=== PATIENT | female | born 1980 | race Caucasian/White ===

== ENCOUNTER 2016-06-18 04:24 | Emergency (ER) | payer OTHER ==
[~2016-06-18] VITALS: Ht 182.8 cm; Wt 63.5 kg
[~2016-06-18 04:24] MED LIST: ALBUTEROL0.09 MG/A2 INH; ANAPROX DS550 MG PO; AUGMENTIN 875875 MG PO; BACTRIM DS 8001 TA1 PO; CEFADROXIL500 M1 PO; DIFLUCAN100 MG PO; FERROUS SULFAT325 M1 PO; FLEXERIL10 MG PO; FLONASE 0.05% 121 EA NAS; HYDROCODONE BIT1 T11 PO; IBU800 M1 PO; K-DUR 2020 MEQ PO; KEFLEX500 MG PO; LOTRISONE 0.05%45 GM PO; MACROBID100 M1 PO; MOTRIN800 MG PO; NEXIUM40 MG PO; NKHM; PENICILLIN VK500 MG PO; PHENERGAN W/DM120 ML PO; PHENERGAN25 M1 PO; PREDNICOT10 MG PO; PREDNISONE20 MG PO; PRENATAL1 TA1 PO; PRENATAL1 TA2 PO; PRENATAL1 TA7 PO; PRENTAL 1 PLUS1 TAB PO; PROAIR HFA0.09 MG/AC INH; PROTONIX40 MG PO; PYRIDIUM200 MG PO; ROBAXIN750 MG PO; TRAMADOL HCL50 MG PO; TRIMOX500 MG PO; ULTRAM50 MG PO; VICODIN 5/500 505 MG PO; ZITHROMAX Z PA250 MG PO; ZOFRAN ODT4 MG SL; ZOFRAN4 MG PO
[2016-06-18 05:12] LABS: BILIRUBIN NEGATIVE (NEGATIVE); BLOOD TRACE-INTACT (NEGATIVE); CLARITY CLEAR (CLEAR); COLOR YELLOW (YELLOW); GLUCOSE NEGATIVE (NEGATIVE); KETONE NEGATIVE (NEGATIVE); LEUKO ESTERASE NEGATIVE (NEGATIVE); NITRITE NEGATIVE (NEGATIVE); PH 6.5 (5.0-9.0); PROTEIN NEGATIVE (NEGATIVE); SPECIFIC GRAVITY <= 1.005 (1.005-1.030); UROBILINOGEN 0.2 E.U./dl (0.2-1.0)
[2016-06-18 05:13] LABS: BASO # 0.1 10*3/uL (0.0-0.1); BASO % 0.7 % (0.0-1.0); EOS # 0.1 10*3/uL (0.0-0.4); EOS % 1.1 % (1.0-4.0); HEMATOCRIT 38.5 % (37.0-47.0); HEMOGLOBIN 13.1 g/dl (12.0-16.0); LYMPH # 3.1 10*3/uL (1.3-4.4); LYMPH % 29.8 % (27.0-41.0); MEAN CELL VOLUME 95.1 fl (81.0-99.0); MEAN CORPUSCULAR HGB 32.3 pg (27.0-31.0); MEAN PLATELET VOLUME 12.1 fl (9.6-12.3); MONO # 0.6 10*3/uL (0.1-1.0); NEUT # 6.5 10*3/uL (2.3-7.9); NEUT % 62.2 % (47.0-73.0); PLATELET COUNT AUTOMATED 142 10*3/uL (130-400); RED BLOOD COUNT 4.05 10*6/uL (4.10-5.10); RED CELL DISTRI WIDTH 13.2 % (0-14.5); WHITE BLOOD COUNT 10.5 10*3/uL (4.8-10.8)
[2016-06-18 05:22] LABS: URINE REFLEX COMMENT NO (NO)
[2016-06-18 05:29] LABS: ALBUMIN 3.7 gm/dl (3.1-4.5); ALKALINE PHOSPHATASE 67 U/L (45-117); BILIRUBIN, TOTAL 0.2 mg/dl (0.2-1.0); BUN 11 mg/dl (7-24); CARBON DIOXIDE 30 mmol/L (21-32); CHLORIDE 105 mmol/L (98-107); EST GLOM FILT AFRICAN AMERICAN > 60 ml/min; GLUCOSE 83 mg/dL (65-99); POTASSIUM 3.9 mmol/L (3.5-5.1); SGOT/AST 11 IU/L (3-35); SGPT/ALT 15 U/L (12-78); SODIUM 141 mmol/L (136-145); TOTAL PROTEIN 6.9 gm/dL (6.4-8.2)
== END 2016-06-18 09:56 | disposition home or self-care (01) ==
LOC: ED 04:24
PROVIDERS: Emergency Medicine Emergency Medical Services
DX: R10.30 Lower abdominal pain, unspecified (principal); F17.200 Nicotine dependence, unspecified, uncomplicated; Z88.0 Allergy status to penicillin

== ENCOUNTER 2016-06-27 09:21 | Emergency (ER) | payer OTHER ==
[~2016-06-27] VITALS: Ht 182.8 cm; Wt 74.8 kg
[2016-06-27 09:53] LABS: BASO % 0.3 % (0.0-1.0); EOS # 0.2 10*3/uL (0.0-0.4); EOS % 1.8 % (1.0-4.0); HEMATOCRIT 38.6 % (37.0-47.0); HEMOGLOBIN 12.7 g/dl (12.0-16.0); LYMPH # 1.4 10*3/uL (1.3-4.4); LYMPH % 13.8 % (27.0-41.0); MEAN CELL VOLUME 96.7 fl (81.0-99.0); MEAN CORPUSCULAR HGB 31.8 pg (27.0-31.0); MEAN CORPUSCULAR HGB CONC 32.9 g/dl (33.0-37.0); MEAN PLATELET VOLUME 12.6 fl (9.6-12.3); MONO # 0.4 10*3/uL (0.1-1.0); MONO % 4.2 % (3.0-9.0); NEUT # 7.8 10*3/uL (2.3-7.9); NEUT % 79.6 % (47.0-73.0); PLATELET COUNT AUTOMATED 105 10*3/uL (130-400); RED BLOOD COUNT 3.99 10*6/uL (4.10-5.10); RED CELL DISTRI WIDTH 13.3 % (0-14.5); WHITE BLOOD COUNT 9.8 10*3/uL (4.8-10.8)
[2016-06-27 10:08] LABS: ALBUMIN 3.4 gm/dl (3.1-4.5); ALKALINE PHOSPHATASE 68 U/L (45-117); BILIRUBIN, TOTAL 0.3 mg/dl (0.2-1.0); BUN 17 mg/dl (7-24); CARBON DIOXIDE 25 mmol/L (21-32); CHLORIDE 112 mmol/L (98-107); EST GLOM FILT AFRICAN AMERICAN > 60 ml/min; GLUCOSE 84 mg/dL (65-99); POTASSIUM 3.6 mmol/L (3.5-5.1); SGOT/AST 14 IU/L (3-35); SGPT/ALT 16 U/L (12-78); SODIUM 143 mmol/L (136-145); TOTAL PROTEIN 6.6 gm/dL (6.4-8.2)
[2016-06-27 10:20] LABS: BILIRUBIN 1+ (NEGATIVE); BLOOD 3+ (NEGATIVE); CLARITY TURBID (CLEAR); COLOR RED (YELLOW); GLUCOSE NEGATIVE (NEGATIVE); KETONE NEGATIVE (NEGATIVE); NITRITE POSITIVE (NEGATIVE); PROTEIN 3+ (NEGATIVE); SPECIFIC GRAVITY >= 1.030 (1.005-1.030)
[2016-06-27 10:27] LABS: URINE AMPHETAMINES < 1000 (1000ng/ml); URINE BARBITURATES < 200 (200ng/ml); URINE COCAINE < 300 (300ng/ml)
[2016-06-27 10:31] LABS: LEUKO ESTERASE NEGATIVE (NEGATIVE)
[2016-06-27 10:32] LABS: RBC TNTC rbc/hpf (0-2); URINE REFLEX COMMENT YES (NO)
[2016-06-27] MEDS ORDERED: MACROBID100 M1 PO (10:47)
[2016-06-27] MEDS ORDERED: PYRIDIUM200 M1 PO (10:47)
== END 2016-06-27 11:10 | disposition home or self-care (01) ==
LOC: ED 09:21
PROVIDERS: Nurse Practitioner Family
DX: N39.0 Urinary tract infection, site not specified (principal); N93.8 Other specified abnormal uterine and vaginal bleeding; R31.9 Hematuria, unspecified; R03.0 Elevated blood-pressure reading, without diagnosis of hypertension; R05 Cough; R09.81 Nasal congestion; J02.9 Acute pharyngitis, unspecified; R19.7 Diarrhea, unspecified; F17.200 Nicotine dependence, unspecified, uncomplicated; Z88.0 Allergy status to penicillin

== ENCOUNTER 2016-08-31 11:37 | Emergency (ER) | payer OTHER ==
[~2016-08-31] VITALS: Wt 77.1 kg
[~2016-08-31 11:37] MED LIST changes: +PYRIDIUM200 M1 PO
[2016-08-31] MEDS ORDERED: NAPROSYN500 MG PO (12:54)
[2016-08-31] MEDS ORDERED: CLINDAMYCIN150 MG PO (12:54)
== END 2016-08-31 13:34 | disposition home or self-care (01) ==
LOC: ED 11:37
DX: S61.012A Laceration without foreign body of left thumb without damage to nail, initial encounter (principal); S61.412A Laceration without foreign body of left hand, initial encounter; R03.0 Elevated blood-pressure reading, without diagnosis of hypertension; F17.200 Nicotine dependence, unspecified, uncomplicated; Z88.0 Allergy status to penicillin; Z29.12 Encounter for prophylactic antivenin; W22.8XXA Striking against or struck by other objects, initial encounter; Y93.9 Activity, unspecified; Y92.9 Unspecified place or not applicable; Y99.9 Unspecified external cause status

== ENCOUNTER 2016-11-02 19:26 | Emergency (ER) | payer OTHER ==
[~2016-11-02] VITALS: Ht 182.8 cm; Wt 74.8 kg
[~2016-11-02 19:26] MED LIST changes: +CLINDAMYCIN150 MG PO; +NAPROSYN500 MG PO
== END 2016-11-02 22:03 | disposition home or self-care (01) ==
LOC: ED 19:26
DX: S30.0XXA Contusion of lower back and pelvis, initial encounter (principal); F17.200 Nicotine dependence, unspecified, uncomplicated; Z88.0 Allergy status to penicillin; W20.8XXA Other cause of strike by thrown, projected or falling object, initial encounter; Y93.89 Activity, other specified; Y92.89 Other specified places as the place of occurrence of the external cause; Y99.8 Other external cause status

== ENCOUNTER 2016-11-25 10:47 | Inpatient (IN) | payer OTHER ==
[~2016-11-25] VITALS: Ht 182.8 cm; Wt 60.6 kg
--- NOTE | ~2016-11-25 | CON ---
[place], [place] REPORT OF CONSULTATION [id number] UNIT #: [id number] ROOM: 405 DOCTOR: CASEY ANTONIO MD BIRTHDATE: [birth year] DOS: 11/26/2016 HISTORY OF PRESENT ILLNESS: The patient is a pleasant 36-year-old woman who came to the Emergency Room because of intractable nausea, vomiting, which had been getting worse. She also started having some diffuse abdominal and some chest pain. She has not been able to eat too much. She was subsequently admitted for now. She had been taking some opioids prescribed by her dentist. On her routine CBC examination, found to have progressive thrombocytopenia and consulted for further evaluation and management. PAST MEDICAL HISTORY: Abdominal pain, acute bronchitis, dental decay, dysfunctional uterine bleeding, laceration of earlobe, and lumbar contusion. PAST SURGICAL HISTORY: No significant past surgical history. SOCIAL HISTORY: Uses marijuana, is a smoker and denies alcohol consumption. FAMILY HISTORY: Father and mother noncontributory. ALLERGIES: No known allergies. MEDICATIONS: Amoxicillin, hydrocodone/acetaminophen and ibuprofen. REVIEW OF SYSTEMS: CONSTITUTIONAL: No chills. No fatigue. No fever. No loss of appetite. No night sweats. No weakness. No weight loss. HEENT: No trouble swallowing. No loss of smell. No loss of hearing. No double vision. No pain. No discharge. ENT AND RESPIRATORY: No wheeze. No sore throat. No change in voice. No hearing loss. No nose bleed. No cough. No trouble breathing through nose. No shortness of breath. No coughing up blood. No epistaxis. CARDIOVASCULAR: No chest pain. No dizziness. No irregular heartbeat. No leg edema. No pain in legs while walking. No palpitations. No shortness of breath. DERMATOLOGIC: No acne. No hives. No laceration. No mole. No rash. ENDOCRINE: No cold intolerance. No diabetes. No fatigue. No hot flashes. No polydipsia. No polyuria. No urinating frequently. No weight loss. HEMATOLOGIC AND LYMPH: No fatigue. No easy bruising. GASTROENTEROLOGIC: No change in bowel habits. No indigestion. No frequent bloating. No vomiting blood. No abdominal cramping. No heartburn. No abdominal pain. No dysphagia. No blood in stool. She has been having some nausea, vomiting, though denies diarrhea and constipation. FEMALE REPRODUCTIVE: No vaginal itching. No difficulty urinating. No heavy periods. No dyspareunia. No sexually active. No dysmenorrhea. No pelvic pain. No breast pain. No nipple discharge. No abnormal vaginal discharge. No hot flashes. MUSCULOSKELETAL: No back pain. No muscle pain or weakness. No neck pain. No tingling/numbness. No swelling/bruising. No osteoporosis treatment. OPHTHALMOLOGIC: No double vision. No diminished vision. No loss of vision. UROLOGIC: No dysuria. No frequent nighttime urination. No irregular periods. [place], [place] REPORT OF CONSULTATION NAME: CRISTIANO MAGAÑA UNIT #: [id number] ROOM: [facility] DOCTOR: CASEY ANTONIO MD BIRTHDATE: [birth year] No pain with urination. No difficulty urinating. No blood in urine. No frequent urination. No urinary incontinence. NEUROLOGIC: No loss of sensation in specific body area. No vertigo. No burning pain in feet. No trouble with balance. No trouble with coordination. No loss of consciousness. No loss of feeling/power. No confusion. No headache. No tingling/numbness. PSYCHOLOGIC: No tinnitus. No headaches. No shortness of breath. No weight decrease. No nausea. No vomiting. No abdominal discomfort. No constipation. No diarrhea. No depression. No anxiety. PHYSICAL EXAMINATION: GENERAL: Pleasant woman in no apparent distress. VITAL SIGNS: Stable, afebrile. HEENT: Oral mucosa appears intact. The external ears are normal in appearance. Nares are patent without lesions, exudates, erythema, or inflammation. Tongue is symmetrical. Uvula is midline. NECK AND THYROID: Neck supple without palpable masses. Trachea is midline. No thyromegaly. No carotid bruit or JVD. BREASTS: Normal. Nipples unremarkable. No drainage. No lumps felt on either side. HEART: Normal S1, S2, without significant murmur, rub, or gallop. LUNGS: Clear to auscultation and percussion with good air entry bilaterally. The patient is breathing easily without the use of accessory muscles. Diaphragmatic excursions are intact. ABDOMEN: No costovertebral angle tenderness. Soft. No organomegaly or masses. Nontender. No hernias present. Liver and spleen are not palpable. LYMPHATIC: No adenopathy noted in the cervical, supraclavicular, axillary, or inguinal regions. NEUROLOGIC: Nonfocal. Oriented to person, place, and time. MENTAL STATUS: Appropriate for mood and affect. PERIPHERAL PULSES: No varicosities. Femoral and pedal pulses are palpable. EXTREMITIES: Without cyanosis, clubbing, or edema. No gross anomalies. LABORATORY DATA: White count of 6.5, hemoglobin 13.6, hematocrit 40.1, MCV 93.7, platelet count 101,000. Chemistries: Glucose of 96, EGFR more than 60. Sodium 141, potassium 3.5, chloride 109, total protein 7.0. SGOT 14, SGPT 11, alkaline phosphatase 66. ASSESSMENT: 1. Thrombocytopenia etiology probably bone marrow suppression. 2. Intractable nausea and vomiting. 3. Dehydration. 4. Chest pain. 5. Abdominal pain. PLAN: I had detailed discussion with the patient about different causes of thrombocytopenia. We will go ahead and review peripheral smears as well as do workup for thrombocytopenia. We will wait for GI for further evaluation and depending on that do further intervention. I had a detailed discussion with the patient about it, she seemed to understand. Ample time was given to the patient [place], [place] REPORT OF CONSULTATION NAME: CRISTIANO MAGAÑA UNIT #: [id number] ROOM: 405 DOCTOR: CASEY ANTONIO MD BIRTHDATE: [birth year] to ask me questions. We will follow. Thanks for consulting and letting me participate in the care of this interesting patient. CASEY ANTONIO MD CM:CONSTR:REPORT OF CONSULTATION 1205 11/27/16 0531 interface
--- NOTE | ~2016-11-25 | PR ---
[place], [place] PROGRESS NOTE NAME: CRISTIANO MAGAÑA UNIT #: [id number] ROOM: 405 DOCTOR: CASEY ANTONIO MD BIRTHDATE: [birth year] DOS: 11/27/2016 SUBJECTIVE: The patient is doing better. She is awake, alert and responsive. REVIEW OF SYSTEMS HEENT: No trouble swallowing. No double vision. No loss of vision. No pain. ENT AND RESPIRATORY: No wheeze. No change in voice. No cough. No shortness of breath. No coughing up blood. No epistaxis. CARDIOLOGIC: No chest pain. No dizziness. No irregular heartbeat. No leg edema. No palpitations. No shortness of breath. HEMATOLOGIC AND LYMPH: No past transfusion. No fatigue. No loss of appetite. No easy bruising. GASTROENTEROLOGIC: No change in bowel habits. No vomiting blood. No abdominal cramping. No nausea. No vomiting. No diarrhea. No constipation. No blood in stool. FEMALE REPRODUCTIVE: No dyspareunia. No pelvic pain. MUSCULOSKELETAL: No back pain. No muscle pain or weakness. No tingling/numbness. UROLOGIC: No pain with urination. No difficulty urinating. No frequent urination. NEUROLOGIC: No burning pain in feet. No trouble with coordination. No loss of consciousness. No headache. No tingling/numbness. No memory loss. PHYSICAL EXAMINATION: GENERAL: Pleasant woman in no apparent distress. VITAL SIGNS: Blood pressure 120/70, respirations 20, pulse 78, temperature 97.7. HEENT: Normocephalic, atraumatic NECK AND THYROID: Supple. No JVD, thyromegaly, or lymphadenopathy. HEART: Normal S1, S2. Regular rate and rhythm. LUNGS: Clear to auscultation and percussion. ABDOMEN: Soft. Nontender, nondistended. Bowel sounds present. EXTREMITIES: Normal ROM. No clubbing. No edema. LABORATORY DATA: Sodium 142, potassium 3.6, chloride 108, bicarbonate 25, EGFR more than 60. AST 13, ALT 13. White count 7.9, hemoglobin 12.2, hematocrit 36.2, platelet count 207,000. ASSESSMENT: 1. Thrombocytopenia. 2. Intractable nausea, vomiting, which has got better 3. Dehydration. PLAN: Workup has been ordered. The patient will be followed as outpatient and she was advised if any bleeding, bruising, petechiae, etc. to call us. Otherwise, follow as outpatient. [place], [place] PROGRESS NOTE NAME: CRISTIANO MAGAÑA UNIT #: [id number] ROOM: 405 DOCTOR: CASEY ANTONIO MD BIRTHDATE: [birth year] CASEY ANTONIO MD CM:PNTRANS [id number] CASEY ANTONIO MD 11/28/16 0530 interface
--- NOTE | ~2016-11-25 | O ---
[place], [place] OPERATIVE NOTE NAME: CRISTIANO MAGAÑA UNIT #: [id number] ROOM: 405 DOCTOR: ANNE SIMONSLUCILLE BIRTHDATE: [birth year] DOS: GASTRO-ENDOSCOPIC REPORT HISTORY OF PRESENT ILLNESS: A 36-year-old patient who has presented with chief complaint of relentless nausea, vomiting, undergoing investigation. The patient has had a panel of studies done, among which was her HIV screening that was nonreactive, history of acute hepatitis panel was nonreactive. She has been user of recreational medication and she was THC positive, opiates positive. Lactic acid was 0.7. CBC: White blood cells 5.5, H and H 13 and 40. Comprehensive metabolic panel, GFR normal. Labs reviewed. Records reviewed. test negative, reviewed. Troponin was negative. PAST MEDICAL HISTORY: Nonspecific abdominal pain, dental decay. PAST SURGICAL HISTORY: Unremarkable. SOCIAL HISTORY: Smoker of 2 packs of cigarettes, marijuana as well as drinking 6 cups of coffee per day. FAMILY HISTORY: Noncontributory. ALLERGIES: To no known medication. MEDICATIONS: List has been reviewed. The patient has been on ibuprofen 800 t.i.d. as well as [place] for dental pain. PROCEDURE: Today's procedure part of investigation is panendoscopy plus biopsy. PREMEDICATION: Versed and Diprivan. SCOPE: Olympus forward-viewing gastroscope Q10 video. REPORT: After putting the patient in the left lateral position and after application of lubricant to the scope, the scope was introduced. Thereafter, under direct visualization, I advanced through the length of the esophagus without difficulty. Small hiatal hernia was noticed. Gastric pouch was entered. Gastritis seen. Duodenal bulb, second and third parts were free of ulcer or obstruction. The patient extubated, tolerated procedure well. IMPRESSION: Gastritis, hiatal hernia, bile reflux. PLAN AND DISCUSSION: We are going to give her 1 dose of Reglan today to reestablish her motility of upper GI tract and continue the PPI, soft diet as tolerated and clinical reassessment. On the other hand, we have already done sonogram of the gallbladder. Nonspecific mild gallbladder thickening which is not of any concern. There was no acute cholecystitis concern. CT scan of the head has been no intracranial bleed. Supportive management otherwise. [place], [place] OPERATIVE NOTE NAME: CRISTIANO MAGAÑA UNIT #: [id number] ROOM: 405 DOCTOR: ANNE SIMONS,LUCILLE BIRTHDATE: [birth year] LUCILLE RODRÍGUEZ MD CM:OPRECORD:OPERATIVE NOTE [id number] LUCILLE RODRÍGUEZ MD 11/26/16 1634 interface
[2016-11-25 10:54] VITALS: BP 121/76
[2016-11-25 11:14] LABS: BILIRUBIN NEGATIVE (NEGATIVE); BLOOD 1+ (NEGATIVE); CLARITY SL CLOUDY (CLEAR); COLOR YELLOW (YELLOW); GLUCOSE NEGATIVE (NEGATIVE); KETONE NEGATIVE (NEGATIVE); LEUKO ESTERASE TRACE (NEGATIVE); NITRITE NEGATIVE (NEGATIVE); PH 5.5 (5.0-9.0); SPECIFIC GRAVITY 1.025 (1.005-1.030)
[2016-11-25 11:25] LABS: URINE AMPHETAMINES < 1000 (1000ng/ml); URINE BARBITURATES < 200 (200ng/ml); URINE BENZODIAZEPINES < 200 (200ng/ml); URINE CANNABINOIDS (THC) > 50 (50ng/ml); URINE COCAINE < 300 (300ng/ml); URINE METHADONE < 300 (300ng/ml); URINE OPIATES > 300 (300ng/ml)
[2016-11-25 11:26] LABS: URINE PHENCYCLIDINE < 25 (25ng/ml)
[2016-11-25 11:29] LABS: BACTERIA TRACE
[2016-11-25 11:31] LABS: BASO % 0.5 % (0.0-1.0); EOS # 0.3 10*3/uL (0.0-0.4); EOS % 5.4 % (1.0-4.0); HEMATOCRIT 40.1 % (37.0-47.0); HEMOGLOBIN 13.4 g/dl (12.0-16.0); LYMPH # 1.9 10*3/uL (1.3-4.4); LYMPH % 34.1 % (27.0-41.0); MEAN CORPUSCULAR HGB 31.8 pg (27.0-31.0); MEAN CORPUSCULAR HGB CONC 33.4 g/dl (33.0-37.0); MEAN PLATELET VOLUME 13.3 fl (9.6-12.3); MONO # 0.4 10*3/uL (0.1-1.0); MONO % 7.1 % (3.0-9.0); NEUT # 2.9 10*3/uL (2.3-7.9); NEUT % 52.7 % (47.0-73.0); PLATELET COUNT AUTOMATED 72 10*3/uL (130-400); RED BLOOD COUNT 4.22 10*6/uL (4.10-5.10); RED CELL DISTRI WIDTH 14.3 % (0-14.5); WHITE BLOOD COUNT 5.5 10*3/uL (4.8-10.8)
[2016-11-25 11:49] LABS: ALBUMIN 3.3 gm/dl (3.1-4.5); ALKALINE PHOSPHATASE 66 U/L (45-117); BUN 11 mg/dl (7-24); CHLORIDE 109 mmol/L (98-107); CREATININE 0.86 mg/dL (0.55-1.02); LIPASE 163 U/L (73-393); MAGNESIUM 1.8 mg/dL (1.5-2.1); POTASSIUM 3.8 mmol/L (3.5-5.1); SGOT/AST 18 IU/L (3-35); SGPT/ALT 13 U/L (12-78); SODIUM 140 mmol/L (136-145); TOTAL PROTEIN 7.1 gm/dL (6.4-8.2)
[2016-11-25 11:52] LABS: BETA-HCG, QUANT < 1.0 mIU/mL (1-3)
--- NOTE | 2016-11-25 12:14 | NUR ---
PT PULLED IV OUT STATED "I DIDNT GET THE MEDICINE" PT DRY HEAVING WITH NO EMESIS PRODUCED IN ROOM DR CANNON NOTIFIED AND IS GOING TO SEE PATIENT PT GIVEN A EMESIS BAG CALL LIGHT IN REACH
--- NOTE | 2016-11-25 12:23 | NUR ---
NO EMESIS IN BAG OF YET PT IN BED CALL LIGHT IN REACH
[2016-11-25 12:30] VITALS: BP 120/78
--- NOTE | 2016-11-25 12:45 | NUR ---
IV RESTARTED LAC WITHOUT DIFFICULTY NO EMESIS IN BAG OF YET PT RESTING IN BED CALL LIGHT IN REACH
--- NOTE | 2016-11-25 13:37 | NUR ---
PATIENT REFUSING FLU SHOT AT THIS TIME
[2016-11-25] MEDS ORDERED: NORCO 7.5-3251 EACH PO (13:41)
[2016-11-25] MEDS ORDERED: AMOXICILLIN500 M3 PO (13:41)
[2016-11-25] MEDS ORDERED: IBU800 MG PO (13:41)
--- NOTE | 2016-11-25 13:42 | NUR ---
HOME MEDICATIONS VERIFIED WITH [facility]ACISTS AT [facility]
--- NOTE | 2016-11-25 13:43 | NUR ---
DR Stacie CANNON NOTIFIED OF MEDICATION LIST UPDATED
[2016-11-25 16:00] VITALS: BP 135/80
--- NOTE | 2016-11-25 16:21 | NUR ---
DR RODRÍGUEZ CALLED FOR CONSULT. KEEP PATIENT NPO AFTER MIDNIGHT AND SCHEDULE FOR EGD TOMORROW.
[2016-11-25 20:00] VITALS: BP 118/57
[2016-11-26] VITALS: BP 109/51
--- NOTE | 2016-11-26 02:32 | NUR ---
PT RESTING IN BED WITH EYES CLOSED RESPS EASY AND NONLABORED WITH NO S/S OF DSTRESS CALL LIGHT WITH IN REACH
--- NOTE | 2016-11-26 05:30 | NUR ---
PT HAD SMALL AMOUNT OF LIGHT GREEN EMISIS X1 MEDICATED WITH PHENERGRAN IV PRN PER ORDERS
[2016-11-26 06:02] LABS: BASO % 0.2 % (0.0-1.0); HEMATOCRIT 40.1 % (37.0-47.0); HEMOGLOBIN 13.6 g/dl (12.0-16.0); LYMPH # 1.2 10*3/uL (1.3-4.4); LYMPH % 18.6 % (27.0-41.0); MEAN CELL VOLUME 93.7 fl (81.0-99.0); MEAN CORPUSCULAR HGB 31.8 pg (27.0-31.0); MEAN CORPUSCULAR HGB CONC 33.9 g/dl (33.0-37.0); MEAN PLATELET VOLUME 14.3 fl (9.6-12.3); MONO # 0.3 10*3/uL (0.1-1.0); MONO % 4.6 % (3.0-9.0); NEUT % 76.4 % (47.0-73.0); RED BLOOD COUNT 4.28 10*6/uL (4.10-5.10); RED CELL DISTRI WIDTH 14.1 % (0-14.5); WHITE BLOOD COUNT 6.5 10*3/uL (4.8-10.8)
[2016-11-26 06:23] LABS: PLATELET COUNT AUTOMATED 101 10*3/uL (130-400)
[2016-11-26 06:29] LABS: ALBUMIN 3.3 gm/dl (3.1-4.5); BUN 11 mg/dl (7-24); CHLORIDE 109 mmol/L (98-107); MAGNESIUM 2.1 mg/dL (1.5-2.1); POTASSIUM 3.5 mmol/L (3.5-5.1); SODIUM 141 mmol/L (136-145)
[2016-11-26 06:40] LABS: ALKALINE PHOSPHATASE 66 U/L (45-117); CHOLESTEROL 146 mg/dL (<200); CREATININE 0.63 mg/dL (0.55-1.02); HDL CHOLESTEROL 31 mg/dl (40-60); LDL CHOLESTEROL 102 mg/dL (9-159); PHOSPHOROUS 3.5 mg/dL (2.5-4.9); SGOT/AST 14 IU/L (3-35); SGPT/ALT 11 U/L (12-78); THYROID STIM HORMONE (HS) 0.772 uIU/ml (0.358-4.75); TRIGLYCERIDES 65 mg/dl (<150); VLDL CHOLESTEROL 13 mg/dL (6-40)
[2016-11-26 06:41] LABS: ACT PARTIAL THROMBO TIME 23.2 SECONDS (20.8-31.5); INTERNATIONAL NORM RATIO 1.1 (2.0-3.5)
[2016-11-26 07:06] LABS: HEPATITIS B SURFACE AG Negative (Negative); HEPATITIS C VIRUS ANTIBODY 0.1 s/co (0.0-0.9); HIV 1+2 AB + HIV1 P24 AG Non Reactive (Non Reactive)
[2016-11-26 07:45] LABS: VITAMIN D, 25-HYDROXY 28.7 ng/mL (30-100)
[2016-11-26 08:00] VITALS: BP 138/76
--- NOTE | 2016-11-26 09:00 | NUR ---
Disc Jockey in to talk to patient. Patient states lives at home with family. There are few steps in the home. Physician: judy Pharmacy: [facility] Home health services: none Patient's level of ADLs: INDEPENDENT Patient has working utilities: all working DME: none Follow-up physician's appointment after d/c: patient prefers to make own appointment Does patient want to access PORTAL?: no Discharge plan discussed with patient, patient will be going home when able and denies any home needs, she is independent in adls and ambulaiton. RONALD PEÑA
--- NOTE | 2016-11-26 11:30 | NUR ---
DR. STRATTON CALLED FOR CONSULT.
--- NOTE | 2016-11-26 11:51 | NUR ---
PT VOMITTING UP GREEN LIQUID EMISIS. DR. SINHA IN ROOM, MEDICATED WITH ZOFRAN PER PRN ORDER. WILL MONITOR.
--- NOTE | 2016-11-26 12:00 | NUR ---
ZOFRAN EFFECTIVE PER PT.
[2016-11-26 13:22] LABS: HEMATOCRIT 38.4 % (37.0-47.0); HEMOGLOBIN 13.1 g/dl (12.0-16.0); MEAN CELL VOLUME 94.1 fl (81.0-99.0); MEAN CORPUSCULAR HGB 32.1 pg (27.0-31.0); MEAN CORPUSCULAR HGB CONC 34.1 g/dl (33.0-37.0); MEAN PLATELET VOLUME 14.2 fl (9.6-12.3); PLATELET COUNT AUTOMATED 110 10*3/uL (130-400); RED BLOOD COUNT 4.08 10*6/uL (4.10-5.10); RED CELL DISTRI WIDTH 14.1 % (0-14.5); WHITE BLOOD COUNT 7.4 10*3/uL (4.8-10.8)
[2016-11-26 13:24] LABS: IMMATURE PLATELET 21.2 % (0.0-7.2)
[2016-11-26 13:42] LABS: TOTAL CELLS COUNTED 100 #CELLS
[2016-11-26 13:44] LABS: PLATELET SUFFICIENCY LOW (NORMAL)
[2016-11-26 15:48] VITALS: BP 121/62
[2016-11-26 16:03] VITALS: BP 109/62
[2016-11-26 16:18] VITALS: BP 104/60
[2016-11-26 16:33] VITALS: BP 113/57
--- NOTE | 2016-11-26 18:30 | NUR ---
IV started right antecubital with #22 angiocath after 2 attempts. The IV site was prepped with Chloraprep. Heparin lock attached. Sterile dressing applied. Patient tolerated precedure well. Procedure performed according to [facility] policy & procedure. ALBINO TAY
--- NOTE | 2016-11-26 19:03 | NUR ---
PATIENT IS RESTING COMFORTABLY IN BED. PATIENT LINENS AND GOWN WERE CHANGED FROM INCONTINENCE. CALL LIGHT IS WITHIN REACH.
--- NOTE | 2016-11-26 22:20 | NUR ---
PATIENT MEDICATED WITH ZOFRAN PER PRN ORDER FOR C/O NAUSEA. SEE EMAR. REINFORCED USE OF CALL LIGHT.
[2016-11-27] VITALS: BP 127/74
--- NOTE | 2016-11-27 | NUR ---
ZOFRAN EFFECTIVE FOR C/O NAUSEA.
[2016-11-27 06:29] LABS: BASO % 0.1 % (0.0-1.0); HEMATOCRIT 36.2 % (37.0-47.0); HEMOGLOBIN 12.2 g/dl (12.0-16.0); LYMPH # 1.6 10*3/uL (1.3-4.4); LYMPH % 20.8 % (27.0-41.0); MEAN CELL VOLUME 93.1 fl (81.0-99.0); MEAN CORPUSCULAR HGB 31.4 pg (27.0-31.0); MEAN CORPUSCULAR HGB CONC 33.7 g/dl (33.0-37.0); MEAN PLATELET VOLUME 14.2 fl (9.6-12.3); MONO # 0.3 10*3/uL (0.1-1.0); MONO % 4.3 % (3.0-9.0); NEUT # 5.9 10*3/uL (2.3-7.9); NEUT % 74.5 % (47.0-73.0); PLATELET COUNT AUTOMATED 107 10*3/uL (130-400); RED BLOOD COUNT 3.89 10*6/uL (4.10-5.10); WHITE BLOOD COUNT 7.9 10*3/uL (4.8-10.8)
[2016-11-27 06:53] LABS: ALBUMIN 3.2 gm/dl (3.1-4.5); ALKALINE PHOSPHATASE 61 U/L (45-117); BUN 10 mg/dl (7-24); CHLORIDE 108 mmol/L (98-107); CREATININE 0.69 mg/dL (0.55-1.02); PHOSPHOROUS 2.5 mg/dL (2.5-4.9); POTASSIUM 3.6 mmol/L (3.5-5.1); SGOT/AST 13 IU/L (3-35); SGPT/ALT 13 U/L (12-78); SODIUM 142 mmol/L (136-145); TOTAL PROTEIN 6.5 gm/dL (6.4-8.2)
[2016-11-27 08:12] LABS: RHEUMATOID ARTHRITIS FACTOR 67.9 IU/mL (0.0-13.9)
[2016-11-27 09:00] VITALS: BP 134/82
--- NOTE | 2016-11-27 11:13 | NUR ---
DR. VARELA CALLED FOR CONSULT FOR BILIARY DYSKINESIA.
[2016-11-27 12:00] VITALS: BP 128/70
[2016-11-27 12:08] LABS: ANTI-DSDNA ANTIBODIES 096339 1 IU/mL (0-9)
--- NOTE | 2016-11-27 14:16 | NUR ---
PATIENT STATED SHE WANTS AMA PAPERS BECAUSE SHE FEELS BETTER AND JUST WANTS TO GO HOME. DR. CANNON AND TEACHER [employer] RODNEY NOTIFIED. IV REMOVED AND AMA FORM SIGNED.
[2016-11-27 15:09] LABS: MYCOPLASMA PNEUMONIAE IGG 475 U/mL (0-99); MYCOPLASMA PNEUMONIAE IGG 495 U/mL (0-99); MYCOPLASMA PNEUMONIAE IGM <770 U/mL (0-769)
[2016-11-27 17:07] LABS: HLA CLASS 1 ANTIBODY Negative (Negative); IIb/IIIa ANTIBODY Positive (Negative); Ia/IIa ANTIBODY Positive (Negative); Ib/IX ANTIBODY Negative (Negative)
[2016-11-27 22:05] LABS: CCP ANTIBODIES IGG/IGA 3 units (0-19)
[2016-11-28 17:06] LABS: PLT ASSOCIATED ANTI-la/lla Positive (Negative); PLT ASSOCIATED ANTI-llb/llla Positive (Negative)
[2016-11-28 22:07] LABS: PARAINFLUENZA 1 CF Negative (Neg:<1:8); PARAINFLUENZA 2 CF Negative (Neg:<1:8); PARAINFLUENZA 3 CF Negative (Neg:<1:8)
[2016-11-29 00:04] LABS: ADENOVIRUS Negative (Negative); INFLUENZA A Negative (Negative); INFLUENZA B Negative (Negative); METAPNEUMOVIRUS Negative (Negative); PARAINFLUENZA 1 Positive (Negative); PARAINFLUENZA 2 Negative (Negative); PARAINFLUENZA 3 Negative (Negative); RHINOVIRUS Negative (Negative); RSV A Negative (Negative); RSV B Negative (Negative)
== END 2016-11-27 14:16 | disposition left against medical advice (07) | DRG 178 ==
LOC: ED 10:47 → 4E 12:37 → EDHOLD 12:37 → 4E 13:03
PROVIDERS: Emergency Medicine; Internal Medicine; Internal Medicine Hematology & Oncology; ADMIT Internal Medicine
PROC: 0DB68ZX Excision of Stomach, Via Natural or Artificial Opening Endoscopic, Diagnostic (ICD-10-PCS; principal; 2016-11-26)
DX: J69.0 Pneumonitis due to inhalation of food and vomit (principal); E44.0 Moderate protein-calorie malnutrition; E87.8 Other disorders of electrolyte and fluid balance, not elsewhere classified; D69.6 Thrombocytopenia, unspecified; E86.0 Dehydration; K44.9 Diaphragmatic hernia without obstruction or gangrene; K29.70 Gastritis, unspecified, without bleeding; K21.9 Gastro-esophageal reflux disease without esophagitis; K22.8 Other specified diseases of esophagus; K82.8 Other specified diseases of gallbladder; R82.71 Bacteriuria; R07.89 Other chest pain; F12.10 Cannabis abuse, uncomplicated; F17.210 Nicotine dependence, cigarettes, uncomplicated; E55.9 Vitamin D deficiency, unspecified; D72.810 Lymphocytopenia; G43.A0 Cyclical vomiting, in migraine, not intractable; Z71.6 Tobacco abuse counseling

== ENCOUNTER 2017-01-05 09:29 | Emergency (ER) | payer OTHER ==
[~2017-01-05] VITALS: Wt 59.0 kg
[~2017-01-05 09:29] MED LIST changes: +AMOXICILLIN500 M3 PO; +IBU800 MG PO; +NORCO 7.5-3251 EACH PO
[2017-01-05 10:42] LABS: BASO # 0.1 10*3/uL (0.0-0.1); BASO % 0.6 % (0.0-1.0); EOS # 0.1 10*3/uL (0.0-0.4); HEMATOCRIT 39.6 % (37.0-47.0); HEMOGLOBIN 13.7 g/dl (12.0-16.0); LYMPH % 36.9 % (27.0-41.0); MEAN CORPUSCULAR HGB 31.5 pg (27.0-31.0); MEAN CORPUSCULAR HGB CONC 34.6 g/dl (33.0-37.0); MEAN PLATELET VOLUME 12.9 fl (9.6-12.3); MONO # 0.9 10*3/uL (0.1-1.0); MONO % 8.4 % (3.0-9.0); NEUT # 5.7 10*3/uL (2.3-7.9); NEUT % 52.9 % (47.0-73.0); PLATELET COUNT AUTOMATED 144 10*3/uL (130-400); RED BLOOD COUNT 4.35 10*6/uL (4.10-5.10); RED CELL DISTRI WIDTH 13.9 % (0-14.5); WHITE BLOOD COUNT 10.8 10*3/uL (4.8-10.8)
[2017-01-05 10:52] LABS: BILIRUBIN 1+ (NEGATIVE); BLOOD NEGATIVE (NEGATIVE); CLARITY CLOUDY (CLEAR); COLOR YELLOW (YELLOW); GLUCOSE NEGATIVE (NEGATIVE); KETONE 1+ (NEGATIVE); LEUKO ESTERASE TRACE (NEGATIVE); NITRITE NEGATIVE (NEGATIVE); PH 6.5 (5.0-9.0); SPECIFIC GRAVITY 1.015 (1.005-1.030)
[2017-01-05 10:58] LABS: ALBUMIN 3.8 gm/dl (3.1-4.5); BUN 12 mg/dl (7-24); CHLORIDE 99 mmol/L (98-107); CREATININE 1.09 mg/dL (0.55-1.02); LIPASE 360 U/L (73-393); POTASSIUM 3.5 mmol/L (3.5-5.1); SGOT/AST 11 IU/L (3-35); SGPT/ALT 13 U/L (12-78); SODIUM 135 mmol/L (136-145); TOTAL PROTEIN 7.2 gm/dL (6.4-8.2)
[2017-01-05 11:02] LABS: ALKALINE PHOSPHATASE 60 U/L (45-117)
[2017-01-05 11:10] LABS: BACTERIA TRACE; EPITHELIAL CELLS 0-2; MUCOUS 3+; RBC 0-2 rbc/hpf (0-2)
== END 2017-01-05 12:40 | disposition home or self-care (01) ==
LOC: ED 09:29
PROVIDERS: Nurse Practitioner Family
DX: R11.2 Nausea with vomiting, unspecified (principal); F17.200 Nicotine dependence, unspecified, uncomplicated; Z88.1 Allergy status to other antibiotic agents; Z88.8 Allergy status to other drugs, medicaments and biological substances

== ENCOUNTER 2017-09-13 19:03 | Emergency (ER) | payer OTHER ==
[~2017-09-13] VITALS: Ht 182.8 cm; Wt 68.9 kg
[2017-09-13 19:29] LABS: BASO # 0.1 10*3/uL (0.0-0.1); BASO % 0.7 % (0.0-1.0); EOS # 0.2 10*3/uL (0.0-0.4); EOS % 2.2 % (1.0-4.0); HEMATOCRIT 39.3 % (37.0-47.0); HEMOGLOBIN 13.1 g/dl (12.0-16.0); LYMPH # 2.4 10*3/uL (1.3-4.4); LYMPH % 36.4 % (27.0-41.0); MEAN CELL VOLUME 95.2 fl (81.0-99.0); MEAN CORPUSCULAR HGB 31.7 pg (27.0-31.0); MEAN CORPUSCULAR HGB CONC 33.3 g/dl (33.0-37.0); MEAN PLATELET VOLUME 12.4 fl (9.6-12.3); MONO # 0.6 10*3/uL (0.1-1.0); MONO % 8.2 % (3.0-9.0); NEUT # 3.5 10*3/uL (2.3-7.9); NEUT % 52.4 % (47.0-73.0); PLATELET COUNT AUTOMATED 102 10*3/uL (130-400); RED BLOOD COUNT 4.13 10*6/uL (4.10-5.10); RED CELL DISTRI WIDTH 13.7 % (0-14.5); WHITE BLOOD COUNT 6.7 10*3/uL (4.8-10.8)
[2017-09-13 19:33] LABS: BILIRUBIN 1+ (NEGATIVE); BLOOD 2+ (NEGATIVE); CLARITY SL CLOUDY (CLEAR); COLOR YELLOW (YELLOW); GLUCOSE NEGATIVE (NEGATIVE); KETONE TRACE (NEGATIVE); LEUKO ESTERASE NEGATIVE (NEGATIVE); NITRITE NEGATIVE (NEGATIVE); PH 5.5 (5.0-9.0); SPECIFIC GRAVITY >= 1.030 (1.005-1.030)
[2017-09-13 19:44] LABS: ALBUMIN 4.3 gm/dl (3.1-4.5); ALKALINE PHOSPHATASE 86 U/L (45-117); BUN 14 mg/dl (7-24); CHLORIDE 108 mmol/L (98-107); CREATININE 0.89 mg/dL (0.55-1.02); POTASSIUM 3.6 mmol/L (3.5-5.1); SGOT/AST 129 IU/L (3-35); SGPT/ALT 145 U/L (12-78); SODIUM 142 mmol/L (136-145); TOTAL PROTEIN 7.1 gm/dL (6.4-8.2)
[2017-09-13 19:47] LABS: BACTERIA 1+; EPITHELIAL CELLS TNTC; MUCOUS TRACE
[2017-09-13 20:48] LABS: FREE T4 0.88 ng/dl (0.76-1.46)
[2017-09-13 20:52] LABS: THYROID STIM HORMONE (HS) 2.67 uIU/ml (0.358-4.75)
[2017-09-13] MEDS ORDERED: AMINOPHYLLIN200 MG PO (21:05)
[2017-09-13] MEDS ORDERED: LIDEX 0.05% CRE15 GM T (21:05)
[2017-09-15 08:38] LABS: FREE T3 010389 3.5 pg/mL (2.0-4.4)
[2017-09-15 10:05] LABS: HEPATITIS B SURFACE AG Negative (Negative); HEPATITIS C VIRUS ANTIBODY <0.1 s/co (0.0-0.9)
[2017-10-01] MEDS ORDERED: ZOFRAN ODT4 MG SL (16:03)
== END 2017-09-13 21:30 | disposition home or self-care (01) ==
LOC: ED 19:03
PROVIDERS: Physician Assistant
DX: N39.0 Urinary tract infection, site not specified (principal); R59.0 Localized enlarged lymph nodes; R74.0 Nonspecific elevation of levels of transaminase and lactic acid dehydrogenase [LDH]; Z87.891 Personal history of nicotine dependence

== ENCOUNTER 2017-09-17 10:33 | Inpatient (IN) | payer OTHER ==
[~2017-09-17] VITALS: Ht 182.8 cm; Wt 62.8 kg
--- NOTE | ~2017-09-17 | EKG ---
[place], [place] ELECTROCARDIOGRAM REPORT NAME: CRISTIANO MAGAÑA UNIT #: [id number] ROOM: 511 DOCTOR: KINGA DRAFT REPORT BIRTHDATE: [birth year] [facility] Test Date: 2017-09-17 Test Time: 11:14:36 Pat Name: CRISTIANO MAGAÑA Department: Room: Gender: F Communication Studies Professor: JACQUI : 1980 Requested By: RAMY CANNON Order Number: [id number] Reading MD: Char Oliveira MD Measurements Intervals [place] Rate: 39 P: 84 NM: 141 QRS: 72 QRSD: 99 T: 76 QT: 500 QTc: 403 Interpretive Statements Sinus bradycardia Electronically Signed On 09-18-2017 11:11:17 PDT by Char Oliveira MD CM:EKGRPT:ELECTROCARDIOGRAM REPORT 1114 1111 RAMY SALINAS DRAFT REPORT RAMY CANNON DO
--- NOTE | ~2017-09-17 | CON ---
[place], [place] REPORT OF CONSULTATION NAME: CRISTIANO MAGAÑA UNIT #: [id number] ROOM: 511 DOCTOR: NOBLE NAVA MD BIRTHDATE: [birth year] DOS: 09/19/2017 REASON FOR CONSULTATION: Bradycardia. HISTORY OF PRESENT ILLNESS: The patient is a 36-year-old patient, was present to the Emergency Room for nausea and vomiting for several months and she underwent further testing and underwent a laparoscopic cholecystectomy a few days ago. She found to have sinus bradycardia and the Cardiology was consulted. She denies any chest pain or shortness of breath, no dizziness, no palpitation. No history of syncope at home. No PND, no orthopnea. No neurologic symptoms. No cough or hemoptysis. REVIEW OF SYSTEMS: Review of the 10 systems negative, except as mentioned above. PAST MEDICAL HISTORY: 1. History of cyclic vomiting syndrome. 2. History of bradycardia. 3. Vitamin D deficiency. SOCIAL HISTORY: The patient does smoke and does use illicit drugs, but does not use alcohol. FAMILY HISTORY: Nil contributory. ALLERGIES: No known drug allergies. PAST SURGICAL HISTORY: Recent laparoscopic cholecystectomy. HOME MEDICATIONS: Reviewed. PHYSICAL EXAMINATION: VITAL SIGNS: Blood pressure 120/53, pulse 52, respiration is 20. Weight 62.7 kg, BMI 18.8. GENERAL: Alert, comfortable, in no acute distress. Some mild discomfort at the surgical site. HEENT: Pupils round, equal. No jaundice. Tongue was moist. NECK: Supple, no distended neck veins, no carotid bruit. CHEST: Symmetrical, nontender. LUNGS: Clear to auscultation bilaterally. HEART: Regular rhythm, no S3, no palpable thrills. ABDOMEN: Bowel sounds normal. EXTREMITIES: Showed no edema. Distal pulses are palpable. SKIN: Warm and dry. No cyanosis, no clubbing. RECTAL: Deferred. GENITOURINARY: Deferred. NEUROLOGIC: The patient is alert, oriented. No focal neurologic deficit. REVIEW OF THE DIAGNOSTIC TESTS: EKG showed sinus rhythm, sinus bradycardia, rate 39, normal QT interval. Heart rhythm strips reviewed. Currently, sinus [place], [place] REPORT OF CONSULTATION NAME: CRISTIANO MAGAÑA UNIT #: [id number] ROOM: 511 DOCTOR: CATY NAVA MDI BIRTHDATE: [birth year] bradycardic. Her CBC, chemistry, labs reviewed. The TSH is normal. Magnesium 1.8, potassium 3.4. Renal function normal. WBC 7.4, hemoglobin 11.9, platelet 104,000. IMPRESSION: 1. Sinus bradycardia, asymptomatic, normal thyroid function test. The patient is currently on no AV blocking medications. 2. Status post laparoscopic cholecystectomy. 3. Tobacco use. 4. Mild thrombocytopenia. 5. Mild hypokalemia. 6. Nausea and vomiting, better. RECOMMENDATIONS: 1. Continue to monitor heart rate and blood pressures. 2. I would give potassium chloride 20 mEq to replace her potassium. 3. No further cardiac testing at this time. 4. If she develops symptomatic bradycardia, the heart rate less than 40, then she might benefit from a pacemaker. 5. We will monitor closely her heart rate and blood pressure and electrolytes. NOBLE NAVA MD CM:CONSTR:REPORT OF CONSULTATION 39 09/21/17 3363 interface
--- NOTE | ~2017-09-17 | O ---
[place], [place] OPERATIVE NOTE NAME: [facility]O [facility]A [id number] UNIT #: [id number] ROOM: 511 DOCTOR: CECILIO MALDONADO MD BIRTHDATE: [birth year] DOS: 09/18/2017 PREOPERATIVE DIAGNOSIS: Biliary dyskinesia. POSTOPERATIVE DIAGNOSIS: Biliary dyskinesia. PROCEDURE: Laparoscopic cholecystectomy. SURGEON: Cecilio Maldonado MD GLYCERIN OPERATOR: MELBA. ANESTHESIA: General with endotracheal intubation. INDICATIONS: This is a 36-year-old lady who was admitted with intractable nausea and vomiting and HIDA scan done in 10/2016 that showed biliary dyskinesia. It was decided to take the patient to the operating room for a laparoscopic cholecystectomy. The procedure and its complications were explained to the patient in detail preoperatively. Complications that were discussed included but were not limited to bleeding, infection, hematoma/seroma/abscess formation, prolonged postoperative pain, damage to underlying vital structures, inadvertent injury to common bile duct, biloma formation and incisional hernia formation. She agreed to proceed. DESCRIPTION OF PROCEDURE: After identifying the patient, the patient was brought to the operating suite and laid in the supine position. After induction of general anesthesia, timeout procedure was called and the parts were then painted and draped in the usual sterile fashion. An incision was made below the umbilicus in a transverse fashion. The skin and the subcutaneous tissue were incised. The fascia was incised and 2 stay sutures with 0 Vicryl were taken on either side. The peritoneum was opened and a 12 mm Franc port was introduced into the peritoneal cavity. A pneumoperitoneum was created. Under direct vision, an epigastric incision of 10 mm and two 5 mm incisions made in the right upper quadrant and appropriate size ports were introduced. The gallbladder was retracted superiorly and laterally. The cystic duct and the cystic artery were carefully dissected until the critical view of safety was obtained and the triangle of Calot was identified. These structures were then each clipped 3 times and cut between the first and the second clip. The gallbladder was then removed from the bed of the gallbladder with the help of electrocautery. It was placed in an EndoCatch bag and removed from the peritoneal cavity and sent for histopathological diagnosis. Thereafter, the liver bed was inspected for bleeding and there was no bleeding seen. The right upper quadrant and epigastric ports were removed and there was no bleeding seen. The umbilical port was also removed and the pneumoperitoneum was decompressed. Thereafter, the 2 stay sutures were tied together. An additional #0 Vicryl stitch was used to close the fascial defect in the umbilical region. Thereafter, 1% lidocaine was injected in the 4 skin incisions and the skin defects were then approximated with the help of 4-0 Vicryl in a subcuticular running fashion. Dressings were placed in all the 4 incisions. The patient was extubated uneventfully and brought back to the recovery room in stable fashion. There were no [place], [place] OPERATIVE NOTE NAME: CRISTIANO MAGAÑA UNIT #: [id number] ROOM: 511 DOCTOR: CECILIO MALDONADO MD BIRTHDATE: [address] Cecilio Maldonado, the attending surgeon, was present throughout the operating case. Cecilio Maldonado MD CM:OPRECORD:OPERATIVE NOTE 0941 1104 CECILIO MALDONADO MD 09/18/17 1103 interface
--- NOTE | ~2017-09-17 | EKG ---
[place], [place] ELECTROCARDIOGRAM REPORT NAME: CRISTIANO MAGAÑA UNIT #: [id number] ROOM: 511 DOCTOR: KINGA DRAFT REPORT BIRTHDATE: [birth year] [facility] [place] [facility] Test Date: 2017-09-21 Test Time: 00:13:38 Pat Name: CRISTIANO MAGAÑA Department: Room: 511 2 Gender: F Data Developer: LOYD : 1980 Requested By: LIANE TERAN Order Number: [id number] Reading MD: Tyler Carlson MD Measurements Intervals [place] Rate: 44 P: 53 [place]: 130 QRS: 47 QRSD: 95 T: 64 QT: 483 QTc: 414 Interpretive Statements Sinus bradycardia RSR' in V1 or V2, probably normal variant Compared to ECG 09/17/2017 11:14:36 No significant change Electronically Signed On 09-21-2017 19:08:33 PDT by Tyler Carlson MD CM:EKGRPT:ELECTROCARDIOGRAM REPORT [id number] 1908 LIANE SALINAS DRAFT REPORT LIANE TERAN DO
[2017-09-17 10:33] VITALS: BP 108/38
[~2017-09-17 10:33] MED LIST changes: +AMINOPHYLLIN200 MG PO; +LIDEX 0.05% CRE15 GM T
[2017-09-17 11:04] LABS: BASO # 0.1 10*3/uL (0.0-0.1); BASO % 1.1 % (0.0-1.0); EOS # 0.2 10*3/uL (0.0-0.4); HEMATOCRIT 41.6 % (37.0-47.0); LYMPH # 1.7 10*3/uL (1.3-4.4); LYMPH % 25.8 % (27.0-41.0); MEAN CELL VOLUME 94.5 fl (81.0-99.0); MEAN CORPUSCULAR HGB 31.8 pg (27.0-31.0); MEAN CORPUSCULAR HGB CONC 33.7 g/dl (33.0-37.0); MONO # 0.4 10*3/uL (0.1-1.0); MONO % 5.9 % (3.0-9.0); NEUT # 4.2 10*3/uL (2.3-7.9); PLATELET COUNT AUTOMATED 103 10*3/uL (130-400); RED CELL DISTRI WIDTH 13.5 % (0-14.5); WHITE BLOOD COUNT 6.6 10*3/uL (4.8-10.8)
[2017-09-17 11:13] LABS: INTERNATIONAL NORM RATIO 1.1 (2.0-3.5)
[2017-09-17 11:21] LABS: ALBUMIN 3.9 gm/dl (3.1-4.5); ALKALINE PHOSPHATASE 89 U/L (45-117); BETA-HCG, QUANT < 1.0 mIU/mL (1-3); BUN 12 mg/dl (7-24); CHLORIDE 111 mmol/L (98-107); CREATININE 0.77 mg/dL (0.55-1.02); LIPASE 116 U/L (73-393); POTASSIUM 3.7 mmol/L (3.5-5.1); SGOT/AST 152 IU/L (3-35); SGPT/ALT 195 U/L (12-78); SODIUM 142 mmol/L (136-145); TOTAL PROTEIN 6.7 gm/dL (6.4-8.2); TROPONIN I < 0.015 ng/ml (<0.045)
[2017-09-17 13:23] VITALS: BP 121/85
[2017-09-17 13:23] LABS: BILIRUBIN NEGATIVE (NEGATIVE); BLOOD TRACE-LYSED (NEGATIVE); CLARITY SL CLOUDY (CLEAR); COLOR YELLOW (YELLOW); GLUCOSE NEGATIVE (NEGATIVE); KETONE NEGATIVE (NEGATIVE); LEUKO ESTERASE NEGATIVE (NEGATIVE); NITRITE NEGATIVE (NEGATIVE); UROBILINOGEN 0.2 E.U./dl (0.2-1.0)
[2017-09-17 14:36] VITALS: BP 104/66
[2017-09-17 15:23] VITALS: BP 108/64
[2017-09-17 15:40] VITALS: BP 126/71
[2017-09-17] MEDS ORDERED: AMINOPHYLLIN200 MG PO (16:53)
[2017-09-17] MEDS ORDERED: SUBOXONE 8 MG-1 EACH SL (17:08)
[2017-09-17 20:00] VITALS: BP 126/54
[2017-09-18] VITALS (12 sets, daily range): BP systolic 99–138; BP diastolic 53–80
[2017-09-18 07:39] LABS: BASO % 0.3 % (0.0-1.0); HEMATOCRIT 44.1 % (37.0-47.0); HEMOGLOBIN 15.1 g/dl (12.0-16.0); LYMPH # 1.5 10*3/uL (1.3-4.4); LYMPH % 12.8 % (27.0-41.0); MEAN CELL VOLUME 92.6 fl (81.0-99.0); MEAN CORPUSCULAR HGB 31.7 pg (27.0-31.0); MEAN CORPUSCULAR HGB CONC 34.2 g/dl (33.0-37.0); MEAN PLATELET VOLUME 13.1 fl (9.6-12.3); MONO # 0.4 10*3/uL (0.1-1.0); MONO % 3.1 % (3.0-9.0); NEUT # 9.9 10*3/uL (2.3-7.9); NEUT % 83.5 % (47.0-73.0); PLATELET COUNT AUTOMATED 120 10*3/uL (130-400); RED BLOOD COUNT 4.76 10*6/uL (4.10-5.10); RED CELL DISTRI WIDTH 13.5 % (0-14.5); WHITE BLOOD COUNT 11.8 10*3/uL (4.8-10.8)
[2017-09-18 08:03] LABS: ALBUMIN 3.6 gm/dl (3.1-4.5); ALKALINE PHOSPHATASE 84 U/L (45-117); BUN 7 mg/dl (7-24); CHLORIDE 106 mmol/L (98-107); CREATININE 0.61 mg/dL (0.55-1.02); PHOSPHOROUS 2.8 mg/dL (2.5-4.9); POTASSIUM 3.2 mmol/L (3.5-5.1); SGOT/AST 101 IU/L (3-35); SGPT/ALT 174 U/L (12-78); SODIUM 140 mmol/L (136-145); TOTAL PROTEIN 6.4 gm/dL (6.4-8.2)
[2017-09-19] VITALS: BP 100/49; BP 135/74
[2017-09-19 05:38] LABS: ALBUMIN 3.1 gm/dl (3.1-4.5); ALKALINE PHOSPHATASE 65 U/L (45-117); BUN 6 mg/dl (7-24); CHLORIDE 112 mmol/L (98-107); CREATININE 0.64 mg/dL (0.55-1.02); POTASSIUM 3.4 mmol/L (3.5-5.1); SGOT/AST 108 IU/L (3-35); SGPT/ALT 157 U/L (12-78); SODIUM 145 mmol/L (136-145); TOTAL PROTEIN 5.2 gm/dL (6.4-8.2)
[2017-09-19 05:53] LABS: BASO % 0.3 % (0.0-1.0); EOS # 0.1 10*3/uL (0.0-0.4); EOS % 0.7 % (1.0-4.0); LYMPH # 2.2 10*3/uL (1.3-4.4); LYMPH % 30.4 % (27.0-41.0); MEAN CELL VOLUME 94.4 fl (81.0-99.0); MEAN CORPUSCULAR HGB 31.9 pg (27.0-31.0); MEAN CORPUSCULAR HGB CONC 33.8 g/dl (33.0-37.0); MEAN PLATELET VOLUME 13.9 fl (9.6-12.3); MONO # 0.5 10*3/uL (0.1-1.0); MONO % 7.3 % (3.0-9.0); NEUT # 4.5 10*3/uL (2.3-7.9); PLATELET COUNT AUTOMATED 104 10*3/uL (130-400); RED BLOOD COUNT 3.73 10*6/uL (4.10-5.10); RED CELL DISTRI WIDTH 13.7 % (0-14.5); WHITE BLOOD COUNT 7.4 10*3/uL (4.8-10.8)
[2017-09-19 05:55] LABS: HEMATOCRIT 35.2 % (37.0-47.0); HEMOGLOBIN 11.9 g/dl (12.0-16.0)
[2017-09-19 08:00] VITALS: BP 108/54
[2017-09-19 12:00] VITALS: BP 120/53
[2017-09-19 16:00] VITALS: BP 126/65
[2017-09-19 20:00] VITALS: BP 135/74
[2017-09-20] VITALS: BP 143/78
[2017-09-20 06:48] LABS: HEMATOCRIT 39.5 % (37.0-47.0); HEMOGLOBIN 13.1 g/dl (12.0-16.0); MEAN CORPUSCULAR HGB 33.8 pg (27.0-31.0); MEAN CORPUSCULAR HGB CONC 33.2 g/dl (33.0-37.0); MEAN PLATELET VOLUME 12.1 fl (9.6-12.3); RED BLOOD COUNT 3.88 10*6/uL (4.10-5.10); WHITE BLOOD COUNT 8.1 10*3/uL (4.8-10.8)
[2017-09-20 06:51] LABS: BASO % 0.4 % (0.0-1.0); EOS % 0.2 % (1.0-4.0); LYMPH # 1.8 10*3/uL (1.3-4.4); LYMPH % 21.9 % (27.0-41.0); MEAN CELL VOLUME 101.8 fl (81.0-99.0); MONO # 0.5 10*3/uL (0.1-1.0); MONO % 6.7 % (3.0-9.0); NEUT # 5.7 10*3/uL (2.3-7.9); NEUT % 70.6 % (47.0-73.0)
[2017-09-20 06:52] LABS: PLATELET COUNT AUTOMATED 60 10*3/uL (130-400)
[2017-09-20 07:27] LABS: ALBUMIN 3.2 gm/dl (3.1-4.5); BUN 5 mg/dl (7-24); CHLORIDE 106 mmol/L (98-107); POTASSIUM 3.1 mmol/L (3.5-5.1); SGPT/ALT 159 U/L (12-78); SODIUM 140 mmol/L (136-145)
[2017-09-20 07:33] LABS: ALKALINE PHOSPHATASE 69 U/L (45-117); SGOT/AST 89 IU/L (3-35); TOTAL PROTEIN 5.8 gm/dL (6.4-8.2)
[2017-09-20 08:00] VITALS: BP 148/90
[2017-09-20 12:00] VITALS: BP 125/68
[2017-09-20 16:00] VITALS: BP 131/75
[2017-09-20 20:00] VITALS: BP 129/69
[2017-09-21] VITALS: BP 135/70
[2017-09-21 08:00] VITALS: BP 124/64
[2017-09-21 09:09] LABS: BUN 6 mg/dl (7-24); CHLORIDE 107 mmol/L (98-107); CREATININE 0.61 mg/dL (0.55-1.02); POTASSIUM 3.3 mmol/L (3.5-5.1); SODIUM 142 mmol/L (136-145)
[2017-09-21 12:00] VITALS: BP 90/53
[2017-09-21] MEDS ORDERED: NORCO 5-325 TA1 EACH PO (13:09)
[2017-10-01] MEDS ORDERED: ZOFRAN ODT4 MG SL (16:03)
== END 2017-09-21 14:14 | disposition home or self-care (01) | DRG 419 ==
LOC: ED 10:33 → 5E 14:44 → EDHOLD 14:44 → 5E 15:00
PROVIDERS: Emergency Medicine; Internal Medicine; Student in an Organized Health Care Education/Training Program
PROC: 0FT44ZZ Resection of Gallbladder, Percutaneous Endoscopic Approach (ICD-10-PCS; principal; 2017-09-18)
DX: K82.8 Other specified diseases of gallbladder (principal); D69.6 Thrombocytopenia, unspecified; E87.8 Other disorders of electrolyte and fluid balance, not elsewhere classified; E83.51 Hypocalcemia; R00.1 Bradycardia, unspecified; R74.0 Nonspecific elevation of levels of transaminase and lactic acid dehydrogenase [LDH]; R31.9 Hematuria, unspecified; F41.9 Anxiety disorder, unspecified; F32.9 Major depressive disorder, single episode, unspecified; J45.909 Unspecified asthma, uncomplicated; F17.210 Nicotine dependence, cigarettes, uncomplicated; Z79.899 Other long term (current) drug therapy; Z87.01 Personal history of pneumonia (recurrent); Z80.8 Family history of malignant neoplasm of other organs or systems; Z82.5 Family history of asthma and other chronic lower respiratory diseases; Z71.6 Tobacco abuse counseling

== ENCOUNTER → 2017-11-27 | Outpatient (CLI) | payer OTHER ==
[~2017-11-27] MED LIST changes: +AUGMENTIN 875-875 MG PO; +Motrin,Rufen800 MG PO; +NORCO 5-325 TA1 EACH PO; +SUBOXONE 8 MG-1 EACH SL
[2017-11-27 14:00] LABS: ALBUMIN 3.5 gm/dl (3.1-4.5); ALKALINE PHOSPHATASE 126 U/L (45-117); BUN 11 mg/dl (7-24); CHLORIDE 109 mmol/L (98-107); CHOLESTEROL 114 mg/dL (<200); CPK 62 U/L (26-192); CREATININE 0.66 mg/dL (0.55-1.02); HDL CHOLESTEROL 32 mg/dl (40-60); LDL CHOLESTEROL 65 mg/dL (9-159); SGOT/AST 39 IU/L (3-35); SGPT/ALT 155 U/L (12-78); SODIUM 143 mmol/L (136-145); TOTAL PROTEIN 6.7 gm/dL (6.4-8.2); TRIGLYCERIDES 83 mg/dl (<150); VLDL CHOLESTEROL 17 mg/dL (6-40)
[2017-11-27 14:16] LABS: HEMATOCRIT 37.5 % (37.0-47.0); HEMOGLOBIN 12.4 g/dl (12.0-16.0); MEAN CELL VOLUME 95.7 fl (81.0-99.0); MEAN CORPUSCULAR HGB 31.6 pg (27.0-31.0); MEAN CORPUSCULAR HGB CONC 33.1 g/dl (33.0-37.0); MEAN PLATELET VOLUME 14.4 fl (9.6-12.3); RED BLOOD COUNT 3.92 10*6/uL (4.10-5.10); RED CELL DISTRI WIDTH 14.6 % (0-14.5); WHITE BLOOD COUNT 5.1 10*3/uL (4.8-10.8)
[2017-11-28 09:04] LABS: RHEUMATOID ARTHRITIS FACTOR 22.5 IU/mL (0.0-13.9)
== END | disposition home or self-care (01) ==
LOC: LAB 13:10
PROVIDERS: Family Medicine
DX: R05 Cough (principal); R09.89 Other specified symptoms and signs involving the circulatory and respiratory systems; R53.83 Other fatigue; E55.9 Vitamin D deficiency, unspecified; E78.00 Pure hypercholesterolemia, unspecified; M25.50 Pain in unspecified joint; M79.1 Myalgia; F17.200 Nicotine dependence, unspecified, uncomplicated

== ENCOUNTER → 2017-12-14 | Outpatient (CLI) | payer OTHER ==
[~2017-12-14] MED LIST changes: -AUGMENTIN 875-875 MG PO; -Motrin,Rufen800 MG PO
[2017-12-15 08:13] LABS: HEPATITIS B SURFACE AG Negative (Negative)
[2017-12-15 15:38] LABS: ANTI-DSDNA ANTIBODIES 096339 <1 IU/mL (0-9)
[2017-12-15 15:50] LABS: HEPATITIS C VIRUS ANTIBODY >11.0 s/co (0.0-0.9)
== END | disposition home or self-care (01) ==
LOC: LAB 16:48
PROVIDERS: Family Medicine
DX: M06.9 Rheumatoid arthritis, unspecified (principal); R79.89 Other specified abnormal findings of blood chemistry

== ENCOUNTER → 2017-12-21 | Outpatient (CLI) | payer OTHER ==
[2017-12-22 19:05] LABS: HCV LOG10 3.883 (.); HEPATITIS C QNT 7640 IU/mL (.)
== END | disposition home or self-care (01) ==
LOC: LAB 10:46
PROVIDERS: Family Medicine
DX: B19.20 Unspecified viral hepatitis C without hepatic coma (principal)

== ENCOUNTER → 2017-12-28 | Outpatient (CLI) | payer OTHER ==
[2017-12-28 11:36] LABS: BASO % 0.5 % (0.0-1.0); EOS # 0.3 10*3/uL (0.0-0.4); EOS % 4.4 % (1.0-4.0); HEMATOCRIT 39.1 % (37.0-47.0); HEMOGLOBIN 13.2 g/dl (12.0-16.0); LYMPH # 2.4 10*3/uL (1.3-4.4); LYMPH % 38.9 % (27.0-41.0); MEAN CELL VOLUME 94.2 fl (81.0-99.0); MEAN CORPUSCULAR HGB 31.8 pg (27.0-31.0); MEAN CORPUSCULAR HGB CONC 33.8 g/dl (33.0-37.0); MEAN PLATELET VOLUME 13.2 fl (9.6-12.3); MONO # 0.4 10*3/uL (0.1-1.0); MONO % 5.7 % (3.0-9.0); NEUT # 3.1 10*3/uL (2.3-7.9); NEUT % 50.3 % (47.0-73.0); PLATELET COUNT AUTOMATED 121 10*3/uL (130-400); RED BLOOD COUNT 4.15 10*6/uL (4.10-5.10); RED CELL DISTRI WIDTH 13.8 % (0-14.5); WHITE BLOOD COUNT 6.1 10*3/uL (4.8-10.8)
[2017-12-28 11:45] LABS: ALBUMIN 3.7 gm/dl (3.1-4.5); ALKALINE PHOSPHATASE 87 U/L (45-117); BUN 11 mg/dl (7-24); CHLORIDE 108 mmol/L (98-107); CREATININE 0.61 mg/dL (0.55-1.02); POTASSIUM 4.3 mmol/L (3.5-5.1); SGOT/AST 16 IU/L (3-35); SGPT/ALT 20 U/L (12-78); SODIUM 140 mmol/L (136-145); TOTAL PROTEIN 7.2 gm/dL (6.4-8.2)
[2017-12-28 11:55] LABS: BETA-HCG, QUANT < 1.0 mIU/mL (1-3)
[2017-12-29 06:11] LABS: DHEA SULFATE 85.5 ug/dL (57.3-279.2); FOLLICLE STIMULATING HORMONE 7.4 mIU/mL (.); PROLACTIN 004465 11.2 ng/mL (4.8-23.3)
[2017-12-29 07:07] LABS: HEPATITIS B SURFACE AG Negative (Negative)
[2017-12-30 00:05] LABS: TESTOSTERONE FREE, (DIRECT) 1.6 pg/mL (0.0-4.2)
[2018-01-04 08:32] LABS: HEPATITIS C VIRUS ANTIBODY >11.0 s/co (0.0-0.9)
== END | disposition home or self-care (01) ==
LOC: LAB 10:32
PROVIDERS: Obstetrics & Gynecology
DX: N91.2 Amenorrhea, unspecified (principal); F11.20 Opioid dependence, uncomplicated; Z57.8 Occupational exposure to other risk factors

== ENCOUNTER → 2018-02-02 | Outpatient (CLI) | payer OTHER ==
[2018-02-02 17:10] LABS: BASO # 0.1 10*3/uL (0.0-0.1); EOS # 0.2 10*3/uL (0.0-0.4); EOS % 3.1 % (1.0-4.0); HEMATOCRIT 37.6 % (37.0-47.0); HEMOGLOBIN 12.8 g/dl (12.0-16.0); LYMPH # 1.5 10*3/uL (1.3-4.4); LYMPH % 28.5 % (27.0-41.0); MEAN CELL VOLUME 95.2 fl (81.0-99.0); MEAN CORPUSCULAR HGB 32.4 pg (27.0-31.0); MEAN PLATELET VOLUME 13.1 fl (9.6-12.3); MONO # 0.3 10*3/uL (0.1-1.0); MONO % 6.6 % (3.0-9.0); NEUT # 3.2 10*3/uL (2.3-7.9); NEUT % 60.8 % (47.0-73.0); PLATELET COUNT AUTOMATED 80 10*3/uL (130-400); RED BLOOD COUNT 3.95 10*6/uL (4.10-5.10); RED CELL DISTRI WIDTH 13.6 % (0-14.5); WHITE BLOOD COUNT 5.2 10*3/uL (4.8-10.8)
[2018-02-02 17:27] LABS: ALBUMIN 3.8 gm/dl (3.1-4.5); ALKALINE PHOSPHATASE 71 U/L (45-117); BUN 11 mg/dl (7-24); CHLORIDE 110 mmol/L (98-107); CREATININE 0.77 mg/dL (0.55-1.02); POTASSIUM 3.5 mmol/L (3.5-5.1); SGOT/AST 30 IU/L (3-35); SGPT/ALT 34 U/L (12-78); SODIUM 144 mmol/L (136-145); TOTAL PROTEIN 7.2 gm/dL (6.4-8.2)
[2018-02-04 07:09] LABS: HEPATITIS B SURFACE AB 006395 Reactive (.); HEPATITIS B SURFACE AG Negative (Negative)
[2018-02-05 00:07] LABS: HCV LOG10 4.377 (.); HEPATITIS C QNT 23800 IU/mL (.)
== END ==
LOC: LAB 15:57 → US 16:00
PROVIDERS: Internal Medicine Gastroenterology
DX: R10.2 Pelvic and perineal pain (principal); B18.2 Chronic viral hepatitis C

== ENCOUNTER 2018-02-12 15:01 | Emergency (ER) | payer OTHER ==
[~2018-02-12] VITALS: Ht 182.8 cm; Wt 58.1 kg
[2018-02-12] MEDS ORDERED: Motrin,Rufen800 MG PO (15:35)
[2018-02-12] MEDS ORDERED: AUGMENTIN 875-875 MG PO (15:35)
== END 2018-02-12 15:46 | disposition home or self-care (01) ==
LOC: ED 15:01
DX: J06.9 Acute upper respiratory infection, unspecified (principal); H66.93 Otitis media, unspecified, bilateral; F17.200 Nicotine dependence, unspecified, uncomplicated; Z79.899 Other long term (current) drug therapy; Z90.49 Acquired absence of other specified parts of digestive tract

== ENCOUNTER 2018-02-13 13:42 | Inpatient (IN) | payer OTHER ==
[~2018-02-13] VITALS: Ht 182.8 cm; Wt 58.7 kg
--- NOTE | ~2018-02-13 | EKG ---
[place], [place] ELECTROCARDIOGRAM REPORT NAME: CRISTIANO MAGAÑA UNIT #: [id number] ROOM: 531 DOCTOR: KINGA DRAFT REPORT BIRTHDATE: [birth year] [facility] Test Date: 2018-02-13 Test Time: 18:51:26 Pat Name: CRISTIANO MAGAÑA Department: 5E Room: 531 1 Gender: F Metal Control Worker: Hugh Magana : 1980 Requested By: MANNY RASMUSSEN Order Number: [id number] Reading MD: Morgan Brewer MD Measurements Intervals [place] Rate: 54 P: 54 [place]: 136 QRS: 68 QRSD: 100 T: 62 QT: 480 QTc: 455 Interpretive Statements Sinus rhythm RSR' in V1 or V2, probably normal variant Compared to ECG 09/21/2017 00:13:38 Sinus bradycardia no longer present Electronically Signed On 02-15-2018 12:34:21 PST by Morgan Brewer MD CM:EKGRPT:ELECTROCARDIOGRAM REPORT [id number] 1234 MANNY SALINAS DRAFT REPORT MANNY RASMUSSEN DO
--- NOTE | ~2018-02-13 | EKG ---
[place], [place] ELECTROCARDIOGRAM REPORT NAME: CRISTIANO MAGAÑA UNIT #: [id number] ROOM: 531 DOCTOR: KINGA DRAFT REPORT BIRTHDATE: [birth year] [facility] Test Date: 2018-02-14 Test Time: 08:09:10 Pat Name: CRISTIANO MAGAÑA Department: Room: 531 1 Gender: F Mineralogy Professor: : 1980 Requested By: PATY MCINTYRE Order Number: [id number] Reading MD: Tyler Carlson MD Measurements Intervals [place] Rate: 50 P: 55 [place]: 138 QRS: 60 QRSD: 92 T: 60 QT: 463 QTc: 423 Interpretive Statements Sinus bradycardia RSR' in V1 or V2, probably normal variant Compared to ECG 09/21/2017 00:13:38 No significant change Electronically Signed On 02-15-2018 10:14:06 PST by Tyler Carlson MD CM:EKGRPT:ELECTROCARDIOGRAM REPORT [id number] 1014 PATY SALINAS DRAFT REPORT PATY MCINTYRE DO
[~2018-02-13 13:42] MED LIST changes: +AUGMENTIN 875-875 MG PO; +Motrin,Rufen800 MG PO
[2018-02-13 13:44] VITALS: BP 102/46
[2018-02-13 16:14] LABS: BASO # 0.1 10*3/uL (0.0-0.1); BASO % 0.3 % (0.0-1.0); EOS # 0.1 10*3/uL (0.0-0.4); EOS % 0.6 % (1.0-4.0); HEMATOCRIT 36.4 % (37.0-47.0); HEMOGLOBIN 12.5 g/dl (12.0-16.0); LYMPH # 2.5 10*3/uL (1.3-4.4); LYMPH % 16.9 % (27.0-41.0); MEAN CELL VOLUME 94.5 fl (81.0-99.0); MEAN CORPUSCULAR HGB 32.5 pg (27.0-31.0); MEAN CORPUSCULAR HGB CONC 34.3 g/dl (33.0-37.0); MEAN PLATELET VOLUME 12.8 fl (9.6-12.3); MONO # 0.8 10*3/uL (0.1-1.0); MONO % 5.5 % (3.0-9.0); NEUT # 11.2 10*3/uL (2.3-7.9); NEUT % 76.2 % (47.0-73.0); PLATELET COUNT AUTOMATED 207 10*3/uL (130-400); RED BLOOD COUNT 3.85 10*6/uL (4.10-5.10); RED CELL DISTRI WIDTH 13.1 % (0-14.5); WHITE BLOOD COUNT 14.7 10*3/uL (4.8-10.8)
[2018-02-13 16:29] LABS: ALBUMIN 3.4 gm/dl (3.1-4.5); ALKALINE PHOSPHATASE 113 U/L (45-117); BUN 10 mg/dl (7-24); CHLORIDE 110 mmol/L (98-107); CREATININE 0.73 mg/dL (0.55-1.02); POTASSIUM 3.6 mmol/L (3.5-5.1); SGOT/AST 16 IU/L (3-35); SGPT/ALT 27 U/L (12-78); SODIUM 143 mmol/L (136-145); TOTAL PROTEIN 7.4 gm/dL (6.4-8.2)
[2018-02-13 17:22] VITALS: BP 111/48
[2018-02-13 17:40] VITALS: BP 107/59
[2018-02-13 20:00] VITALS: BP 102/49
[2018-02-14] VITALS: BP 105/50
[2018-02-14 06:17] LABS: BASO % 0.6 % (0.0-1.0); EOS # 0.2 10*3/uL (0.0-0.4); EOS % 3.4 % (1.0-4.0); HEMATOCRIT 33.4 % (37.0-47.0); HEMOGLOBIN 11.1 g/dl (12.0-16.0); LYMPH # 2.6 10*3/uL (1.3-4.4); LYMPH % 37.6 % (27.0-41.0); MEAN CELL VOLUME 97.4 fl (81.0-99.0); MEAN CORPUSCULAR HGB 32.4 pg (27.0-31.0); MEAN CORPUSCULAR HGB CONC 33.2 g/dl (33.0-37.0); MEAN PLATELET VOLUME 13.6 fl (9.6-12.3); MONO # 0.5 10*3/uL (0.1-1.0); MONO % 6.9 % (3.0-9.0); NEUT # 3.5 10*3/uL (2.3-7.9); NEUT % 51.2 % (47.0-73.0); PLATELET COUNT AUTOMATED 153 10*3/uL (130-400); RED BLOOD COUNT 3.43 10*6/uL (4.10-5.10); RED CELL DISTRI WIDTH 13.2 % (0-14.5); WHITE BLOOD COUNT 6.8 10*3/uL (4.8-10.8)
[2018-02-14 06:28] LABS: ACT PARTIAL THROMBO TIME 23.5 SECONDS (20.8-31.5); INTERNATIONAL NORM RATIO 1.1 (2.0-3.5)
[2018-02-14 06:35] LABS: ALBUMIN 2.6 gm/dl (3.1-4.5); ALKALINE PHOSPHATASE 86 U/L (45-117); BUN 11 mg/dl (7-24); CHLORIDE 113 mmol/L (98-107); CREATININE 0.65 mg/dL (0.55-1.02); FREE T4 1.25 ng/dl (0.76-1.46); PHOSPHOROUS 3.8 mg/dL (2.5-4.9); POTASSIUM 4.1 mmol/L (3.5-5.1); SGOT/AST 12 IU/L (3-35); SGPT/ALT 20 U/L (12-78); SODIUM 144 mmol/L (136-145); TOTAL PROTEIN 5.9 gm/dL (6.4-8.2)
[2018-02-14 07:01] LABS: VITAMIN D, 25-HYDROXY 25.5 ng/mL (30-100)
[2018-02-14 12:00] VITALS: BP 117/51
[2018-02-14 16:00] VITALS: BP 108/57; BP 117/62
[2018-02-14 20:00] VITALS: BP 101/82
[2018-02-15] VITALS: BP 119/74
[2018-02-15 07:13] LABS: BASO # 0.1 10*3/uL (0.0-0.1); BASO % 0.8 % (0.0-1.0); EOS # 0.2 10*3/uL (0.0-0.4); EOS % 2.7 % (1.0-4.0); HEMATOCRIT 35.7 % (37.0-47.0); HEMOGLOBIN 11.7 g/dl (12.0-16.0); LYMPH % 32.6 % (27.0-41.0); MEAN CELL VOLUME 96.2 fl (81.0-99.0); MEAN CORPUSCULAR HGB 31.5 pg (27.0-31.0); MEAN CORPUSCULAR HGB CONC 32.8 g/dl (33.0-37.0); MEAN PLATELET VOLUME 13.3 fl (9.6-12.3); MONO # 0.4 10*3/uL (0.1-1.0); MONO % 6.4 % (3.0-9.0); NEUT # 3.6 10*3/uL (2.3-7.9); NEUT % 57.3 % (47.0-73.0); PLATELET COUNT AUTOMATED 178 10*3/uL (130-400); RED BLOOD COUNT 3.71 10*6/uL (4.10-5.10); WHITE BLOOD COUNT 6.2 10*3/uL (4.8-10.8)
[2018-02-15 07:37] LABS: ALBUMIN 3.1 gm/dl (3.1-4.5); ALKALINE PHOSPHATASE 92 U/L (45-117); BUN 7 mg/dl (7-24); CHLORIDE 106 mmol/L (98-107); CREATININE 0.65 mg/dL (0.55-1.02); SGOT/AST 11 IU/L (3-35); SGPT/ALT 20 U/L (12-78); SODIUM 142 mmol/L (136-145); TOTAL PROTEIN 6.8 gm/dL (6.4-8.2)
[2018-02-15] MEDS ORDERED: LEVAQUIN750 M1 PO (09:45)
== END 2018-02-15 10:22 | disposition home or self-care (01) | DRG 871 ==
LOC: ED 13:42 → EDHOLD 16:49 → 5E 16:49
PROVIDERS: Family Medicine; Internal Medicine; Physician Assistant
DX: A41.9 Sepsis, unspecified organism (principal); J18.9 Pneumonia, unspecified organism; E44.1 Mild protein-calorie malnutrition; Z68.1 Body mass index [BMI] 19.9 or less, adult; E87.8 Other disorders of electrolyte and fluid balance, not elsewhere classified; G43.A0 Cyclical vomiting, in migraine, not intractable; R00.1 Bradycardia, unspecified; R73.9 Hyperglycemia, unspecified; B18.2 Chronic viral hepatitis C; F41.9 Anxiety disorder, unspecified; E55.9 Vitamin D deficiency, unspecified; F19.90 Other psychoactive substance use, unspecified, uncomplicated; K46.9 Unspecified abdominal hernia without obstruction or gangrene; F17.210 Nicotine dependence, cigarettes, uncomplicated; Z71.6 Tobacco abuse counseling; Z90.49 Acquired absence of other specified parts of digestive tract; Z80.8 Family history of malignant neoplasm of other organs or systems; Z80.1 Family history of malignant neoplasm of trachea, bronchus and lung; Z80.3 Family history of malignant neoplasm of breast; Z82.5 Family history of asthma and other chronic lower respiratory diseases

== ENCOUNTER 2018-02-26 14:17 | Emergency (ER) | payer OTHER ==
[~2018-02-26] VITALS: Wt 56.7 kg
--- NOTE | ~2018-02-26 | EKG ---
[place], [place] ELECTROCARDIOGRAM REPORT NAME: CRISTIANO MAGAÑA UNIT #: [id number] ROOM: DOCTOR: EPIPHANY DRAFT REPORT BIRTHDATE: [birth year] [facility] Test Date: 2018-02-26 Test Time: 14:56:11 Pat Name: CRISTIANO MAGAÑA Department: Room: Gender: F Arc Trimmer: 20 : 1980 Requested By: DEXTER DE OLIVEIRA Order Number: [id number] Reading MD: Measurements Intervals [place] Rate: 46 P: 70 WI: 133 QRS: 66 QRSD: 96 T: 70 QT: 537 QTc: 470 Interpretive Statements Sinus bradycardia Probable left ventricular hypertrophy Compared to ECG 02/17/2018 16:13:52 Sinus rhythm no longer present ST (T wave) deviation no longer present CM:EKGRPT:ELECTROCARDIOGRAM REPORT 1456 1158 DEXTER DE OLIVEIRA EPIPHANY DRAFT REPORT DEXTER DE OLIVEIRA
[~2018-02-26 14:17] MED LIST changes: +LEVAQUIN750 M1 PO
[2018-02-26 14:55] LABS: BASO % 0.3 % (0.0-1.0); HEMATOCRIT 38.1 % (37.0-47.0); HEMOGLOBIN 12.9 g/dl (12.0-16.0); LYMPH # 1.2 10*3/uL (1.3-4.4); LYMPH % 13.7 % (27.0-41.0); MEAN CELL VOLUME 93.6 fl (81.0-99.0); MEAN CORPUSCULAR HGB 31.7 pg (27.0-31.0); MEAN CORPUSCULAR HGB CONC 33.9 g/dl (33.0-37.0); MEAN PLATELET VOLUME 12.6 fl (9.6-12.3); MONO # 0.2 10*3/uL (0.1-1.0); NEUT # 7.4 10*3/uL (2.3-7.9); NEUT % 83.7 % (47.0-73.0); PLATELET COUNT AUTOMATED 117 10*3/uL (130-400); RED BLOOD COUNT 4.07 10*6/uL (4.10-5.10); RED CELL DISTRI WIDTH 13.1 % (0-14.5); WHITE BLOOD COUNT 8.9 10*3/uL (4.8-10.8)
[2018-02-26 15:10] LABS: ALBUMIN 3.6 gm/dl (3.1-4.5); ALKALINE PHOSPHATASE 92 U/L (45-117); BUN 9 mg/dl (7-24); CHLORIDE 106 mmol/L (98-107); CREATININE 0.57 mg/dL (0.55-1.02); LIPASE 54 U/L (73-393); POTASSIUM 3.2 mmol/L (3.5-5.1); SGOT/AST 34 IU/L (3-35); SGPT/ALT 57 U/L (12-78); SODIUM 140 mmol/L (136-145); TOTAL PROTEIN 7.1 gm/dL (6.4-8.2)
[2018-02-26 15:13] LABS: TROPONIN I < 0.015 ng/ml (<0.045)
[2018-02-26 15:59] LABS: BILIRUBIN NEGATIVE (NEGATIVE); BLOOD TRACE-INTACT (NEGATIVE); CLARITY CLOUDY (CLEAR); COLOR YELLOW (YELLOW); GLUCOSE NEGATIVE (NEGATIVE); KETONE 1+ (NEGATIVE); LEUKO ESTERASE NEGATIVE (NEGATIVE); NITRITE NEGATIVE (NEGATIVE); UROBILINOGEN 0.2 E.U./dl (0.2-1.0)
[2018-02-26 16:07] LABS: BACTERIA 1+; MUCOUS 2+; RBC 16-20 rbc/hpf (0-2)
[2018-02-26 16:11] LABS: URINE AMPHETAMINES > 1000 (1000ng/ml); URINE BARBITURATES < 200 (200ng/ml); URINE BENZODIAZEPINES < 200 (200ng/ml); URINE CANNABINOIDS (THC) > 50 (50ng/ml); URINE COCAINE > 300 (300ng/ml); URINE METHADONE < 300 (300ng/ml); URINE OPIATES > 300 (300ng/ml)
[2018-02-26 16:13] LABS: URINE PHENCYCLIDINE < 25 (25ng/ml)
[2018-03-08] MEDS ORDERED: Motrin,Rufen800 MG PO (08:22)
== END 2018-02-26 16:35 | disposition home or self-care (01) ==
LOC: ED 14:17
PROVIDERS: Nurse Practitioner Family
DX: R11.2 Nausea with vomiting, unspecified (principal); R06.02 Shortness of breath; F17.200 Nicotine dependence, unspecified, uncomplicated

== ENCOUNTER 2018-02-28 11:46 | Inpatient (IN) | payer OTHER ==
[~2018-02-28] VITALS: Ht 182.8 cm; Wt 58.5 kg
--- NOTE | ~2018-02-28 | WRIGHTHP ---
[place], [place] PATIENT HISTORY AND PHYSICAL EXAM NAME: CRISTIANO MAGAÑA [facility] #: [id number] UNIT #: [id number] ROOM: 420 DOCTOR: CAROLYNE MENDES MD BIRTHDATE: [birth year] DOS: 02/28/2018 HISTORY OF PRESENT ILLNESS: The patient is a 37-year-old female with a past medical history of: 1. Substance abuse and the patient on Suboxone. 2. Recurrent nausea, vomiting, abdominal pains. 3. History of ovarian cyst. 4. History of alcoholism. 5. History of abusing pain pills. 6. History of hepatitis C. 7. Generalized anxiety disorder. The patient presented to the Emergency Department with recurrent nausea, vomiting and abdominal pains. The patient says that she has had these symptoms were repeatedly for many years. The patient was suspected to have viral gastroenteritis in the Emergency Department and the CAT scanner was not working, so an ultrasound of the abdomen was performed, which showed cholecystectomy and otherwise normal. No chest pain. No shortness of breath. No other GI or urinary symptoms. REVIEW OF SYSTEMS: RESPIRATORY: No increasing shortness of breath. GASTROINTESTINAL: Recurrent nausea, vomiting and diarrhea. CARDIOVASCULAR: No chest pains or palpitations. SOCIAL HISTORY: The patient with history of smoking marijuana, prescription medication abuse and alcohol abuse. FAMILY HISTORY: Noncontributory. ALLERGIES: No known drug allergies. HOME MEDICATIONS: Suboxone. PHYSICAL EXAMINATION: GENERAL: Alert and oriented, in no visible distress. VITAL SIGNS: Blood pressure 127/77, heart rate of 62 beats per minute, breathing 16 times per minute, afebrile. HEENT AND NECK: Extraocular movements are intact. Sclerae are anicteric. Oral mucosa is moist and clean. No obvious facial weakness. Neck is supple without any lymphadenopathy. No thyromegaly. No JVD. No carotid arterial bruits. LUNGS: Clear to auscultation. No wheezing. No rhonchi. CARDIOVASCULAR SYSTEM: Heart rate is regular in rate and rhythm. S1 and S2 normally audible. No significant murmur or any other abnormal cardiac sounds. ABDOMEN: Soft, nontender. No obvious organomegaly. Bowel sounds are present. No obvious herniation. EXTREMITIES: Without significant cyanosis or edema. Warm to touch. CENTRAL NERVOUS SYSTEM: Alert and oriented x 3. Cranial nerves II-XII are intact. Speech is normal. The patient is able to move all extremities. Normal muscle strength. Deep tendon reflexes are equal on both sides. Plantars were [place], [place] PATIENT HISTORY AND PHYSICAL EXAM NAME: CRISTIANO MAGAÑA UNIT #: [id number] ROOM: [facility] DOCTOR: CINTHYA SIMONS,CAROLYNE Sy BIRTHDATE: [birth year] downgoing. IMPRESSION AND PLAN: 1. Nausea, vomiting and abdominal pains for which patient presented for the second time. Urinary drug screen was only positive for marijuana. Bilirubin and liver enzymes are normal. No leukocytosis. Possible viral gastroenteritis. The patient appears dehydrated and I will start her on treatment with normal saline infusion. I will also consult Dr. Yun, the carbon brushes assembler to evaluate her. 2. Lactic acid level and lipase are both normal. 3. History of apparently opiate abuse because she has history of prescription medication abuse, alcoholism and positive for marijuana, which she smokes. I will continue her Suboxone and follow closely and keep her on small dose of Ativan. 4. According to the Emergency Department, the patient's test was negative. CAROLYNE MENDES MD CM:HISPHYS:PATIENT HISTORY AND PHYSICAL EXAMINATION 38 23 CAROLYNE MENDES MD 02/28/182021 interface
--- NOTE | ~2018-02-28 | DS ---
[place], [place] DISCHARGE SUMMARY NAME: CRISTIANO MAGAÑA UNIT #: [id number] ROOM: 420 DOCTOR: CAROLYNE MENDES MD BIRTHDATE: [birth year] DOS: 03/02/2018 DISCHARGE DIAGNOSES: 1. The patient with intractable nausea and vomiting. 2. Acute severe superficial hemorrhagic gastritis and small hiatal hernia. 3. History of hepatitis C history. 4. History of abusing pain meds. 5. The patient on Suboxone. 6. History of alcoholism. 7. History of ovarian cyst. 8. History of generalized anxiety disorder. HOSPITAL COURSE: The patient presented to Emergency Department with recurrent nausea, vomiting, abdominal pains for the second time. The patient was admitted for being unable to tolerate any diet and being dehydrated. It was thought to be secondary to viral syndrome. The patient was continued on Suboxone, given Reglan and Carafate after EGD was performed by Dr. Yun where she was found to have severe erosive gastritis and a small hiatal hernia. Finally, the patient's vomiting has resolved for the first day and she feels comfortable enough to go home. The patient is feeling somewhat weak. PAST MEDICAL HISTORY: Cholecystectomy. Generalized weakness from nausea, vomiting and diarrhea. The patient's serum electrolytes were monitored and she was hydrated with normal saline. Serum electrolytes are normal. Normal CBC. Rapid flu A and B were negative. Urine test was negative. Ultrasound of the abdomen showed surgically absent gallbladder. DISCHARGE MANAGEMENT: The patient to go home on Carafate 2 grams 4 times a day, Protonix 40 mg b.i.d. Follow up with Dr. Yun and Dr. Elizalde. [place], [place] DISCHARGE SUMMARY NAME: CRISTIANO MAAGÑA UNIT #: [id number] ROOM: 420 DOCTOR: CAROLYNE MENDES MD BIRTHDATE: [birth year] CAROLYNE MENDES MD CM:DISCHARG 1634 1720 CAROLYNE MENDES MD 03/02/18 1718 interface
--- NOTE | ~2018-02-28 | CON ---
[place], [place] REPORT OF CONSULTATION NAME: CRISTIANO MAGAÑA UNIT #: [id number] ROOM: 420 DOCTOR: LUCILLE RODRÍGUEZ MD BIRTHDATE: [birth year] DOS: 03/01/2018 HISTORY OF PRESENT ILLNESS: A 37-year-old patient who has presented with chief complaint of nausea, vomiting to the Emergency Room and on , she has had blood cultures that has been unremarkable on 26 of February. She has had admission and blood work done with white blood cell of 8.9, H and H of 12 and 38, neutrophils of 83. She continues to have a semi-productive cough. She has recently decreased her smoking. Liver function test was normal. She has history of hepatitis C as I recall in the past. Potassium of 3.2, was noticed and has been taking care of her chest x-ray, normal chest. However, urine drug screening was positive for multiple, amphetamines, and THC, cocaine and opiates. Lipase was within normal limits. Rapid flu A and B was negative. Ultrasound of the abdomen was surgically absent gallbladder, nondilated duct. Urine for was negative. PAST MEDICAL HISTORY: Recreational drugs user, alcohol consumption avidly, hepatitis C and anxiety. SOCIAL HISTORY: Smoker of 2 packs up to recently of cigarette in addition to marijuana, alcohol consumption. FAMILY HISTORY: Noncontributory. ALLERGIES: No known medications. MEDICATIONS: At home, Suboxone clinic. REVIEW OF SYSTEMS: HEAD, EYES, EARS, NOSE, AND THROAT: Denies double vision, blurred vision. RESPIRATORY: Denies acute shortness of breath; however, short of breath and cough. CARDIOVASCULAR: Denies chest pain. DIGESTIVE SYSTEM: Nausea, vomiting persistently. PHYSICAL EXAMINATION: HEAD, EYES, EARS, NOSE, AND THROAT: Within normal limit. Mouth: Poor dental hygiene. NECK: Supple, no thyromegaly. No cervical adenopathy. CHEST: Symmetric anatomy, equal expansion. No wheeze, scattered rhonchi. HEART: Normal sinus rhythm, no gallop, no murmur. ABDOMEN: Soft. No hepato-organomegaly. Bowel sounds present. No pulsatile mass. EXTREMITIES: No cyanosis, no pedal edema. NEUROLOGIC: Alert, oriented to time, place, person. IMPRESSION: Persistent nausea, vomiting, multi-recreational drug positivity and drug screening, alcohol dependency, hepatitis C and nicotine dependency. PLAN AND DISCUSSION: Since we have not found any other answer regarding her nausea, vomiting. We are going to proceed with a panendoscopy on this patient [place], [place] REPORT OF CONSULTATION NAME: CRISTIANO MAGAÑA UNIT #: [id number] ROOM: [facility] DOCTOR: LUCILLE RODRÍGUEZ MD BIRTHDATE: [birth year] and clinical reassessment. LUCILLE RODRÍGUEZ MD CM:CONSTR:REPORT OF CONSULTATION 1434 03/01/18 1509 interface
--- NOTE | ~2018-02-28 | O ---
[place], [place] OPERATIVE NOTE NAME: CRISTIANO MAGAÑA UNIT #: [id number] ROOM: 420 DOCTOR: LUCILLE RODRÍGUEZ MD BIRTHDATE: [birth year] DOS: 03/01/2018 INDICATION FOR PROCEDURE: A 37-year-old patient who has presented with persistent nausea and vomiting. She has been status post cholecystectomy years ago. She is an avid smoker of about 2 packs of cigarette habitually and alcohol consumer as well as multiple recreational drug positivity as well as hepatitis C positivity. PROCEDURE: Today's procedure part of investigation is panendoscopy plus biopsy and photographic series. PREMEDICATION: Propofol. SCOPE: Olympus forward-viewing gastroscope Q10 video. REPORT: After putting the patient in left lateral position and application of lubricant to the scope, scope was introduced. Thereafter, under direct visualization, advanced through the length of esophagus without difficulty. Esophagus cervicothoracic within normal limits. Small hiatal hernia was noticed approximately 2 cm. Gastric pouch was entered. There is bilious matter in the gastric pouch. The traces of degraded blood throughout the stomach was photographed. Superficial hemorrhagic gastritis was noticed. Antral biopsy obtained. Duodenal bulb, second and third part normal. The patient was extubated after GI reflection of the scope, tolerated the procedure well. IMPRESSION: Small hiatal hernia, superficial hemorrhagic gastritis. PLAN AND DISCUSSION: Continuation with Protonix at the present time IV b.i.d. as well as sucralfate 2 grams slurry 2 hours before meals and at bedtime while she is in the hospital as well as Reglan 5 mg daily. The patient advised to abstain from carbonated soda, caffeinated beverages, nicotine products, recreational drugs and follow up as outpatient. LUCILLE RODRÍGUEZ MD CM:OPRECORD:OPERATIVE NOTE 1448 1532 LUCILLE RODRÍGUEZ MD 03/01/18 1530 interface
--- NOTE | ~2018-02-28 | PR ---
[place], [place] PROGRESS NOTE NAME: [facility]A [id number] UNIT #: [id number] ROOM: 420 DOCTOR: CAROLYNE MENDES MD BIRTHDATE: [birth year] DOS: 03/01/2018 SUBJECTIVE: The patient continues to have abdominal pains, which have improved and recurrent nausea and vomiting and now she has lower back pain, although overall the patient says she is feeling somewhat better. OBJECTIVE: GENERAL APPEARANCE: The patient is alert and oriented x 3, in no visible distress. VITAL SIGNS: Blood pressure 125/71, afebrile, pulse ox 96%, breathing 14-18 times per minute, heart rate of 60 beats per minute, temperature of 99.1 degrees Fahrenheit. HEENT AND NECK: Exam within normal limits. CARDIOVASCULAR SYSTEM: Heart rate is regular in rate and rhythm. S1 and S2 normally audible. LUNGS: Clear to auscultation. ABDOMEN: Soft, nontender. No obvious organomegaly. Bowel sounds are present. EXTREMITIES: Without significant cyanosis or edema. IMPRESSION: 1. The patient with intractable nausea, vomiting, still going on until this morning, although the episodes have reduced. The patient is being kept on Protonix and Zofran for treatment. 2. History of substance abuse. The patient remains on buspirone. The patient is going for further evaluation with an EGD with Dr. Yun for her symptoms and I will repeat her CBC and basic metabolic profile in the morning. CAROLYNE MENDES MD CM:PNTRANS 1445 37 CAROLYNE MENDES MD 03/01/18 223 interface
[2018-02-28 11:50] VITALS: BP 120/76
[2018-02-28 12:27] LABS: BASO # 0.1 10*3/uL (0.0-0.1); BASO % 0.8 % (0.0-1.0); EOS # 0.1 10*3/uL (0.0-0.4); EOS % 1.5 % (1.0-4.0); HEMATOCRIT 39.6 % (37.0-47.0); HEMOGLOBIN 13.4 g/dl (12.0-16.0); LYMPH # 1.9 10*3/uL (1.3-4.4); LYMPH % 25.2 % (27.0-41.0); MEAN CELL VOLUME 94.5 fl (81.0-99.0); MEAN CORPUSCULAR HGB CONC 33.8 g/dl (33.0-37.0); MEAN PLATELET VOLUME 12.5 fl (9.6-12.3); MONO # 0.3 10*3/uL (0.1-1.0); MONO % 4.3 % (3.0-9.0); NEUT # 5.1 10*3/uL (2.3-7.9); NEUT % 67.9 % (47.0-73.0); PLATELET COUNT AUTOMATED 116 10*3/uL (130-400); RED BLOOD COUNT 4.19 10*6/uL (4.10-5.10); RED CELL DISTRI WIDTH 13.2 % (0-14.5); WHITE BLOOD COUNT 7.5 10*3/uL (4.8-10.8)
[2018-02-28 12:43] LABS: ALBUMIN 3.2 gm/dl (3.1-4.5); ALKALINE PHOSPHATASE 73 U/L (45-117); BUN 14 mg/dl (7-24); CHLORIDE 112 mmol/L (98-107); CREATININE 0.68 mg/dL (0.55-1.02); POTASSIUM 3.9 mmol/L (3.5-5.1); SGOT/AST 20 IU/L (3-35); SGPT/ALT 37 U/L (12-78); SODIUM 145 mmol/L (136-145); TOTAL PROTEIN 6.3 gm/dL (6.4-8.2)
[2018-02-28 13:15] VITALS: BP 118/78
[2018-02-28 14:04] LABS: BILIRUBIN NEGATIVE (NEGATIVE); BLOOD NEGATIVE (NEGATIVE); CLARITY CLEAR (CLEAR); COLOR YELLOW (YELLOW); GLUCOSE NEGATIVE (NEGATIVE); KETONE NEGATIVE (NEGATIVE); LEUKO ESTERASE NEGATIVE (NEGATIVE); NITRITE NEGATIVE (NEGATIVE); UROBILINOGEN 0.2 E.U./dl (0.2-1.0)
[2018-02-28 14:12] LABS: URINE AMPHETAMINES < 1000 (1000ng/ml); URINE BARBITURATES < 200 (200ng/ml); URINE BENZODIAZEPINES < 200 (200ng/ml); URINE CANNABINOIDS (THC) > 50 (50ng/ml); URINE COCAINE < 300 (300ng/ml); URINE METHADONE < 300 (300ng/ml); URINE OPIATES < 300 (300ng/ml)
[2018-02-28 14:14] LABS: BACTERIA TRACE; WBC 0-2 wbc/hpf (0-5)
[2018-02-28 14:22] LABS: URINE PHENCYCLIDINE < 25 (25ng/ml)
--- NOTE | 2018-02-28 15:41 | NUR ---
MSTime: 1530 A 37 year old FEMALE admitted to under services of DR. CINTHYA SIMONS,CAROLYNE Barlow Pt. arrived via ambulance from ER. Chief complaint: NAUSEA AND VOMITING. PAT FAUSTIN.
--- NOTE | 2018-02-28 15:45 | NUR ---
PT RESTING IN BED WITH COVERS OVER HER HEAD. PT NOT COMPLIANT DURING ASSESSMENT. ANSWERS YES/NO QUESTIONS. PT VERY HESISTANT AND RESISTANT TO ANSWERS QUESTIONS PERTAINING TO HER MEDICAL HISTORY.
[2018-02-28 16:00] VITALS: BP 127/77
--- NOTE | 2018-02-28 17:04 | NUR ---
[facility] UNABLE TO VERIFY CURRENT SUBOXONE MEDICATION.
[2018-02-28 20:00] VITALS: BP 151/71
--- NOTE | 2018-02-28 20:27 | NUR ---
SPOKE WITH DR RODRÍGUEZ TO INFORM OF NEW CONSULT. RECEIVED ORDERS TO KEEP PATIENT NPO, IV PROTONIX 40MG DAILY, IV ZOFRAN 4MG Q6H PRN, ALSO RECEIVED ORDERS FOR URINE AT THIS TIME WHICH HE WAS INFORMED IT IS PENDING. NOTHING FURTHER ORDERED AT THIS TIME.
--- NOTE | 2018-02-28 22:15 | NUR ---
UPON ENTERING PATIENT ROOM, WITNESSED LARGE AMOUNT OF DARK GREEN EMESIS AT THIS TIME. PROVIDED PATIENT TWO COLD WASH CLOTHS PER REQUEST. INFORMED PATIENT OF ORDERED PRN IV ZOFRAN MEDICATION TO HELP WITH NAUSEA TO WHICH PATIENT STATES " I DONT WANT ZOFRAN THAT SHIT DOESN'T HELP ME. I WANT THAT PHENERGAN STUFF" INFORMED PATIENT THAT PHENERGAN WAS NOT ORDERED AT THIS TIME, PATIENT ADAMENTLY REFUSING ZOFRAN AND DOES NOT WANT TO TAKE ANY MEDICINE AT THIS TIME. FULL BED LINENS CHANGED AND HELPED PATIENT BACK TO BED. BED IN LOWEST/LOCKED POSITION, SIDERAILS UP X2 FOR SAFETY, CALL LIGHT WITHIN REACH.
[2018-03-01] VITALS (9 sets, daily range): BP systolic 103–151; BP diastolic 62–86
--- NOTE | 2018-03-01 00:15 | NUR ---
PATIENT RESTING IN BED WITH EYES CLOSED, RESPS EASY, REGULAR, NO DISTRESS NOTED ON ROOM AIR. WILL CONTINUE TO MONITOR. BED IN LOWEST/LOCKED POSITION, SIDERAILS UP X2, CALL LIGHT WITHIN REACH.
--- NOTE | 2018-03-01 05:45 | NUR ---
IV started left wrist with #22 protective cath after 2 attempts. Site prepped with Chloroprep. Sterile dressing applied. Patient tolerated procedure well. SHO VICENTE
--- NOTE | 2018-03-01 06:09 | NUR ---
PATIENT C/O NAUSEA, OFFERED PATIENT IV ZOFRAN PER PRN ORDERS. PATIENT PERSISTENTLY STATES "I DONT LIKE ZOFRAN I LIKE THAT PHENERGAN STUFF" INFORMED PATIENT THAT I DO NOT HAVE AN ORDER FOR THAT MEDICATION AT THIS TIME. PATIENT BECAME AGITATED AT THIS TIME AND STATES "WHATEVER I GUESS ILL TRY THE ZOFRAN". MEDICATED WITH PRN IV ZOFRAN PER ORDERS. WILL MONITOR FOR EFFECTIVENESS. CALL LIGHT WITHIN REACH. SIDERAILS UP X2 FOR SAFETY.
--- NOTE | 2018-03-01 09:00 | NUR ---
Diesel Engine Inspector in to talk to patient. Patient states lives at home with family. There are few steps in the home. Physician: Dr. Nelson Elizalde Pharmacy: [facility] Home health services: none Patient's level of ADLs: INDEPENDENT Patient has working utilities: yes DME: none Follow-up physician's appointment after d/c: she prefers to make her own follow up appt after discharge Does patient want to access PORTAL?: no Discharge plan discussed with patient. She lives at home with her family. She is independent in her ADLs and ambulation. Discussed home health care services and she denies any home needs at this time. When medically stable she will be discharged to home. DERECK WELCH
--- NOTE | 2018-03-01 13:38 | NUR ---
PATIENT OFF FLOOR FOR EGD
--- NOTE | 2018-03-01 20:25 | NUR ---
SPOKE WITH DR MENDES REGARDING PT C/O NAUSEA. PT IS NOT DUE TO HAVE ZOFRAN FOR A FEW HOURS AND PT IS REQUESTING PHENERGAN. NEW ORDERS RECEIVED TO GIVE PT 25 MG PHENERGAN VIA IV EVERY 6 HOURS NEEDED. WILL NOTIFY PT AND ADD APPRROPRIATE ORDERS.
--- NOTE | 2018-03-01 23:21 | NUR ---
PT GIVEN PHENERGAN VIA IV DUE TO C/O NAUSEA. TOLERATED WELL THROUGH INFUSION PUMP. WILL MONITOR FOR EFFECTIVENESS. CALL LIGHT IN REACH.
[2018-03-02] VITALS: BP 91/49
--- NOTE | 2018-03-02 00:21 | NUR ---
PHENERGAN EFFECTIVE PER PT.
[2018-03-02 06:26] LABS: BASO # 0.1 10*3/uL (0.0-0.1); BASO % 0.9 % (0.0-1.0); EOS # 0.2 10*3/uL (0.0-0.4); EOS % 2.2 % (1.0-4.0); HEMATOCRIT 39.5 % (37.0-47.0); LYMPH # 3.4 10*3/uL (1.3-4.4); LYMPH % 50.7 % (27.0-41.0); MEAN CELL VOLUME 94.3 fl (81.0-99.0); MEAN CORPUSCULAR HGB CONC 32.9 g/dl (33.0-37.0); MEAN PLATELET VOLUME 12.9 fl (9.6-12.3); MONO # 0.5 10*3/uL (0.1-1.0); MONO % 7.1 % (3.0-9.0); NEUT # 2.6 10*3/uL (2.3-7.9); PLATELET COUNT AUTOMATED 122 10*3/uL (130-400); RED BLOOD COUNT 4.19 10*6/uL (4.10-5.10); RED CELL DISTRI WIDTH 13.2 % (0-14.5); WHITE BLOOD COUNT 6.7 10*3/uL (4.8-10.8)
--- NOTE | 2018-03-02 06:46 | NUR ---
AM MEDICATIONS TAKEN WITH EASE. NO S/S OF DISTRESS NOTED. RESPIRATIONS EASY. CALL LIGHT IN REACH.
[2018-03-02 06:52] LABS: BUN 10 mg/dl (7-24); CHLORIDE 106 mmol/L (98-107); CREATININE 0.59 mg/dL (0.55-1.02); POTASSIUM 3.9 mmol/L (3.5-5.1); SODIUM 141 mmol/L (136-145)
[2018-03-02 08:00] VITALS: BP 100/59
--- NOTE | 2018-03-02 10:10 | NUR ---
pt complain of nausea after eating breakfast, phenergan given. see mar
--- NOTE | 2018-03-02 11:19 | NUR ---
pt states phenergan effective for nausea
--- NOTE | 2018-03-02 13:40 | NUR ---
IV TAPE REINFORCEMENT, COVERED FOR PATIENT TO SHOWER. PT WANTING TO BE DISCHARTED, DISCUSS WITH HER WAITING FOR DR. MENDES. SHE IS AGREEABLE AT THIS TIME, AWARE OF ABILITY TO SIGN SELF OUT AMA IF SHE WISHES
[2018-03-02 16:00] VITALS: BP 90/50
--- NOTE | 2018-03-02 16:17 | NUR ---
PT STATES DR. MENDES IN TO SEE PATIENT AND SHE WILL BE DISCHARGED HOME, IV RIGHT HAND D/C PER PATIENT REQUEST
[2018-03-02] MEDS ORDERED: PROTONIX40 MG PO (16:26)
[2018-03-02] MEDS ORDERED: Carafate1 GM/10 ML PO (16:26)
--- NOTE | 2018-03-02 17:09 | NUR ---
Discharge instructions reviewed with patient/family. Patient receptive and verbalizes understanding. Follow-up care understood. Written instructions given to patient/family. pt ambulate for discharge SRIRAM HERRMANN
[2018-03-08] MEDS ORDERED: Motrin,Rufen800 MG PO (08:22)
== END 2018-03-02 17:09 | disposition home or self-care (01) | DRG 865 ==
LOC: ED 11:46 → 4E 14:25 → EDHOLD 14:25 → 4E 14:31
PROVIDERS: Nurse Practitioner Family; ADMIT Internal Medicine
PROC: 0DB78ZX Excision of Stomach, Pylorus, Via Natural or Artificial Opening Endoscopic, Diagnostic (ICD-10-PCS; principal; 2018-03-01)
DX: B34.9 Viral infection, unspecified (principal); K29.01 Acute gastritis with bleeding; K44.9 Diaphragmatic hernia without obstruction or gangrene; F10.20 Alcohol dependence, uncomplicated; F41.1 Generalized anxiety disorder; B19.20 Unspecified viral hepatitis C without hepatic coma; F17.210 Nicotine dependence, cigarettes, uncomplicated; E86.0 Dehydration; Z90.49 Acquired absence of other specified parts of digestive tract; Z80.8 Family history of malignant neoplasm of other organs or systems; Z80.1 Family history of malignant neoplasm of trachea, bronchus and lung; Z80.3 Family history of malignant neoplasm of breast; Z82.5 Family history of asthma and other chronic lower respiratory diseases

== ENCOUNTER → 2018-03-08 | Day surgery (SDC) | payer OTHER ==
[2018-03-05 10:37] VITALS: BP 98/50
[~2018-03-08] VITALS: Ht 182.8 cm; Wt 58.1 kg
[~2018-03-08] MED LIST changes: +Carafate1 GM/10 ML PO
[2018-03-08 06:45] VITALS: BP 101/54
[2018-03-08 08:00] VITALS: BP 93/40
[2018-03-08 08:15] VITALS: BP 96/43
[2018-03-08 08:30] VITALS: BP 98/41
[2018-03-08 08:45] VITALS: BP 89/53
[2018-03-08 09:00] VITALS: BP 103/64
== END ==
LOC: SDC 03-05 11:00
DX: R87.613 High grade squamous intraepithelial lesion on cytologic smear of cervix (HGSIL) (principal); F41.9 Anxiety disorder, unspecified; F17.210 Nicotine dependence, cigarettes, uncomplicated; F10.21 Alcohol dependence, in remission; Z79.899 Other long term (current) drug therapy; Z86.19 Personal history of other infectious and parasitic diseases; Z90.49 Acquired absence of other specified parts of digestive tract; Z98.890 Other specified postprocedural states; Z80.3 Family history of malignant neoplasm of breast; Z80.49 Family history of malignant neoplasm of other genital organs; Z88.0 Allergy status to penicillin

== ENCOUNTER → 2018-04-14 | Outpatient (CLI) | payer OTHER ==
[~2018-04-14] MED LIST changes: +K-TAB20 MEQ PO; +REGLAN10 M1 PO
== END | disposition home or self-care (01) ==
LOC: US 02:06
DX: R10.2 Pelvic and perineal pain (principal)

== ENCOUNTER 2018-06-04 13:53 | Inpatient (IN) | payer OTHER ==
[~2018-06-04] VITALS: Ht 182.9 cm; Wt 63.1 kg
--- NOTE | ~2018-06-04 | WRIGHTHP ---
[place], [place] PATIENT HISTORY AND PHYSICAL EXAM NAME: CRISTIANO MAGAÑA [facility] #: [id number] UNIT #: [id number] ROOM: 424 DOCTOR: CAROLYNE MENDES MD BIRTHDATE: [birth year] DOS: 06/04/2018 HISTORY OF PRESENT ILLNESS: The patient is a 37-year-old female with a past medical history of: 1. Opioid drug abuse and marijuana, smoking presently on Suboxone and current marijuana user. 2. Generalized anxiety disorder. 3. History of cervical cancer in the past. 4. History of hepatitis C. 5. History of abusing pain pills. 6. History of alcoholism. The patient presented to the Emergency Department with recurrent nausea and vomiting and abdominal discomfort for a few days. The patient had diffuse abdominal cramping since the night before admission. No diarrhea and no urinary symptoms. The patient was recommended for admission for the further management for dehydration with recurrent nausea and vomiting. The patient was found to have COPD on the chest x-ray and she has history of nicotine smoke dependence, smoking half pack of cigarettes a day. The patient is positive for marijuana and cocaine in her urine drug test, which was performed in the Emergency Department. REVIEW OF SYSTEMS: RESPIRATORY: The patient has some cough and purulent sputum. GASTROINTESTINAL: The patient with recurrent nausea and vomiting. No diarrhea. CARDIOVASCULAR: No chest pains or palpitations. FAMILY HISTORY: Noncontributory. HOME MEDICATIONS: The patient takes Suboxone. ALLERGIES: No known drug allergies. PHYSICAL EXAMINATION: GENERAL: Alert, oriented x 3, in no visible distress. HEENT AND NECK: Extraocular movements are intact. Sclerae are anicteric. Oral mucosa is moist and clean. No obvious facial weakness. Neck is supple without any lymphadenopathy. No thyromegaly. No JVD. No carotid arterial bruits. LUNGS: Clear to auscultation. No wheezing. No rhonchi. CARDIOVASCULAR SYSTEM: Heart rate is regular in rate and rhythm. S1 and S2 normally audible. No significant murmur or any other abnormal cardiac sounds. LABORATORY DATA: Urine drug screen positive for marijuana and cocaine. Rapid A and B flu tests were negative. White cell count 11,600. IMPRESSION: 1. The patient with viral gastroenteritis with recurrent nausea and vomiting and dehydration, to be treated with ondansetron and I have added Phenergan to the treatment and hydrating her with normal saline. Serum electrolytes will be [place], [place] PATIENT HISTORY AND PHYSICAL EXAM NAME: CRISTIANO MAGAÑA UNIT #: [id number] ROOM: 424 DOCTOR: CINTHYA SIMONS,CAROLYNE Sy BIRTHDATE: [birth year] monitored. 2. Hypokalemia from vomiting to be treated with extra potassium supplements. 3. Gastritis. I will start IV Protonix. 4. Drug abuse with a history of abusing opioids in the past for which I will continue her Suboxone and the patient is also positive for cocaine and marijuana in her urine. 5. The patient has acute exacerbation of COPD with purulent sputum, increased shortness of breath recently to be treated with antibiotic. CAROLYNE MENDES MD CM:HISPHYS:PATIENT HISTORY AND PHYSICAL EXAMINATION 1525 1544 CAROLYNE MENDES MD 06/05/18 1543 interface
[~2018-06-04 13:53] MED LIST changes: -K-TAB20 MEQ PO; -REGLAN10 M1 PO
[2018-06-04 14:01] VITALS: BP 134/77
[2018-06-04 14:33] LABS: BASO # 0.1 10*3/uL (0.0-0.1); BASO % 0.6 % (0.0-1.0); EOS % 0.3 % (1.0-4.0); HEMATOCRIT 38.2 % (37.0-47.0); HEMOGLOBIN 13.1 g/dl (12.0-16.0); LYMPH # 1.9 10*3/uL (1.3-4.4); LYMPH % 18.3 % (27.0-41.0); MEAN CORPUSCULAR HGB 32.6 pg (27.0-31.0); MEAN CORPUSCULAR HGB CONC 34.3 g/dl (33.0-37.0); MEAN PLATELET VOLUME 13.5 fl (9.6-12.3); MONO # 0.5 10*3/uL (0.1-1.0); MONO % 4.6 % (3.0-9.0); PLATELET COUNT AUTOMATED 124 10*3/uL (130-400); RED BLOOD COUNT 4.02 10*6/uL (4.10-5.10); RED CELL DISTRI WIDTH 14.2 % (0-14.5); WHITE BLOOD COUNT 10.5 10*3/uL (4.8-10.8)
[2018-06-04 14:54] LABS: ALBUMIN 3.1 gm/dl (3.1-4.5); ALKALINE PHOSPHATASE 94 U/L (45-117); BUN 8 mg/dl (7-24); CHLORIDE 112 mmol/L (98-107); CREATININE 0.56 mg/dL (0.55-1.02); LIPASE 54 U/L (73-393); POTASSIUM 4.1 mmol/L (3.5-5.1); SGOT/AST 31 IU/L (3-35); SGPT/ALT 39 U/L (12-78); SODIUM 144 mmol/L (136-145)
[2018-06-04 15:03] VITALS: BP 130/76
[2018-06-04 16:03] LABS: BILIRUBIN NEGATIVE (NEGATIVE); BLOOD NEGATIVE (NEGATIVE); CLARITY CLEAR (CLEAR); COLOR YELLOW (YELLOW); GLUCOSE NEGATIVE (NEGATIVE); KETONE NEGATIVE (NEGATIVE); LEUKO ESTERASE NEGATIVE (NEGATIVE); NITRITE NEGATIVE (NEGATIVE); PH 8.5 (5.0-9.0); SPECIFIC GRAVITY 1.015 (1.005-1.030); UROBILINOGEN 0.2 E.U./dl (0.2-1.0)
[2018-06-04 16:16] LABS: BACTERIA 1+; MUCOUS 2+
[2018-06-04 16:20] LABS: URINE AMPHETAMINES < 1000 (1000ng/ml); URINE BARBITURATES < 200 (200ng/ml); URINE BENZODIAZEPINES < 200 (200ng/ml); URINE CANNABINOIDS (THC) > 50 (50ng/ml); URINE COCAINE > 300 (300ng/ml); URINE METHADONE < 300 (300ng/ml); URINE OPIATES < 300 (300ng/ml)
[2018-06-04 16:25] LABS: URINE PHENCYCLIDINE < 25 (25ng/ml)
--- NOTE | 2018-06-04 16:45 | NUR ---
THIS CHRISTOPH DE LA PAZ PULLED VIAL OF PHENERGAN... MIXED IT IN 10 CC NORMAL SALINE SYRINGE. WHEN I WENT TO SCAN IT IN FOR THE PATIENT, I NOTICED THE ORDER WAS FOR IM ROUTE.... RE-ORDERED MEDICATION TO GET A SECOND VIAL TO ADMINISTER IM. DENNIS HUERTA AWARE AND VERBAL ORDER TO RE-ORDER MED
[2018-06-04 17:46] VITALS: BP 132/80
--- NOTE | 2018-06-04 19:02 | NUR ---
PT W/O ACUTE DISTRESS NOTED AND NAUSEA REMAINS PER PT,NO ADDITIONAL EMESIS NOTED.PT POSITIONED FOR COMFORT WITH CALL LIGHT WITHIN REACH.
[2018-06-04] MEDS ORDERED: REGLAN10 M1 PO (19:41)
--- NOTE | 2018-06-04 19:59 | NUR ---
PT WITH LARGE GREEN EMESIS NOTED @ DISCHARGE AND DENNIS SCHWAB PA-C NOTIFIED AND PT TO BE ADMITTED.
[2018-06-04 20:27] VITALS: BP 134/76
--- NOTE | 2018-06-04 20:50 | NUR ---
Time: 2049 A 37 year old FEMALE admitted to under services of DR. CINTHYA SIMONS,CAROLYNE Barlow Pt. arrived via bed from ER. Chief complaint: NAUSEA AND VOMITING. ALBINO TAY
--- NOTE | 2018-06-04 22:54 | NUR ---
MEDICATED WITH ZOFRAN PER PRN ORDER FOR C/O NAUSEA AND VOMITING
--- NOTE | 2018-06-04 23:30 | NUR ---
ASSUMED CARE FOR THIS PT AT THIS TIME. PT RESTING QUIETLY IN BED. PT C/O MILD STOMACH CRAMPING AND CONTINUES TO HAVE N/V. LARGE AMOUNT OF GREEN BILE NOTED IN EMESIS BAG. BS X4 HYPERACTIVE. PT TEACHING GIVEN ON ANTI-EMETIC MED TIMES. CALL LIGHT IN REACH.
[2018-06-05] VITALS: BP 123/46
[2018-06-05 06:50] LABS: BASO % 0.3 % (0.0-1.0); HEMATOCRIT 39.5 % (37.0-47.0); HEMOGLOBIN 13.3 g/dl (12.0-16.0); LYMPH # 1.6 10*3/uL (1.3-4.4); LYMPH % 13.4 % (27.0-41.0); MEAN CELL VOLUME 95.2 fl (81.0-99.0); MEAN CORPUSCULAR HGB CONC 33.7 g/dl (33.0-37.0); MONO # 0.4 10*3/uL (0.1-1.0); MONO % 3.6 % (3.0-9.0); NEUT # 9.5 10*3/uL (2.3-7.9); NEUT % 82.1 % (47.0-73.0); PLATELET COUNT AUTOMATED 126 10*3/uL (130-400); RED BLOOD COUNT 4.15 10*6/uL (4.10-5.10); RED CELL DISTRI WIDTH 14.1 % (0-14.5); WHITE BLOOD COUNT 11.6 10*3/uL (4.8-10.8)
[2018-06-05 07:08] LABS: BUN 10 mg/dl (7-24); CHLORIDE 109 mmol/L (98-107); CREATININE 0.58 mg/dL (0.55-1.02); POTASSIUM 3.2 mmol/L (3.5-5.1); SODIUM 140 mmol/L (136-145)
--- NOTE | 2018-06-05 07:20 | NUR ---
REPORT OBTAINED FROM [facility]. PATIENT IS RESTING IN BED, EYES CLOSED. NO DISTRESS NOTED RESP ARE ERND ON ROOM AIR. BED IS LOCKED IN LOWEST POSITION, CALL LIGHT LEFT WITHIN REACH.
[2018-06-05 08:00] VITALS: BP 121/71
--- NOTE | 2018-06-05 09:45 | NUR ---
INFORMED THAT PATIENT STATED ZOFRAN INEFFECTIVE FOR HER AND PHENERGAN ONLY HELP HER. NEW ORDERS IN PLACE PER DOCTOR WISHES.
--- NOTE | 2018-06-05 10:20 | NUR ---
FAMILY AND HOSPICE IN PATIENT ROOM AT THIS TIME. WILL RECHECK TEMP ONCE AVAILABLE
--- NOTE | 2018-06-05 10:22 | NUR ---
PATIENT MEDICATED WITH PHENERGAN IV D/T C/O NAUSEA. WILL MONITOR
--- NOTE | 2018-06-05 11:22 | NUR ---
PHENERGAN APPEARS TO BE EFFECTIVE. PATIENT RESTING IN BED, EYES CLOSED. NO DISTRESS NOTED
[2018-06-05 12:00] VITALS: BP 107/53
[2018-06-05 16:00] VITALS: BP 110/65
[2018-06-05 20:00] VITALS: BP 98/60
[2018-06-05 20:16] VITALS: BP 98/60
[2018-06-06] VITALS: BP 110/49
[2018-06-06 06:35] LABS: BUN 11 mg/dl (7-24); CHLORIDE 109 mmol/L (98-107); CREATININE 0.56 mg/dL (0.55-1.02); POTASSIUM 3.9 mmol/L (3.5-5.1); SODIUM 143 mmol/L (136-145)
[2018-06-06 08:00] VITALS: BP 117/62
--- NOTE | 2018-06-06 10:57 | NUR ---
PATIENT SIGNED SELF OUT AMA. NURSING SULFURIC ACID PLANT OPERATOR AWARE AND AWARE. IV CATH REMOVED.
== END 2018-06-06 10:57 | disposition left against medical advice (07) | DRG 392 ==
LOC: ED 13:53 → 4E 20:18 → EDHOLD 20:18 → 4E 20:44
PROVIDERS: Physician Assistant; ADMIT Internal Medicine
DX: A08.4 Viral intestinal infection, unspecified (principal); J44.1 Chronic obstructive pulmonary disease with (acute) exacerbation; E86.0 Dehydration; F14.10 Cocaine abuse, uncomplicated; F12.10 Cannabis abuse, uncomplicated; E87.6 Hypokalemia; K29.70 Gastritis, unspecified, without bleeding; F17.210 Nicotine dependence, cigarettes, uncomplicated; F41.1 Generalized anxiety disorder; Z90.49 Acquired absence of other specified parts of digestive tract; Z80.1 Family history of malignant neoplasm of trachea, bronchus and lung; Z80.3 Family history of malignant neoplasm of breast; Z80.8 Family history of malignant neoplasm of other organs or systems; Z82.5 Family history of asthma and other chronic lower respiratory diseases; Z85.41 Personal history of malignant neoplasm of cervix uteri

== ENCOUNTER 2018-08-25 15:36 | Emergency (ER) | payer OTHER ==
[~2018-08-25] VITALS: Ht 182.8 cm; Wt 65.8 kg
[~2018-08-25 15:36] MED LIST changes: +REGLAN10 M1 PO
== END 2018-08-25 18:50 | disposition home or self-care (01) ==
LOC: ED 15:36
DX: S93.402A Sprain of unspecified ligament of left ankle, initial encounter (principal); F17.200 Nicotine dependence, unspecified, uncomplicated; X50.1XXA Overexertion from prolonged static or awkward postures, initial encounter; Y93.89 Activity, other specified; Y92.531 Health care provider office as the place of occurrence of the external cause; Y99.8 Other external cause status

== ENCOUNTER 2018-10-06 23:20 | Emergency (ER) | payer OTHER ==
[~2018-10-06] VITALS: Ht 182.8 cm; Wt 68.9 kg
[2018-10-07 00:35] LABS: BASO % 0.6 % (0.0-1.0); EOS % 0.5 % (1.0-4.0); HEMATOCRIT 38.1 % (37.0-47.0); HEMOGLOBIN 13.2 g/dl (12.0-16.0); LYMPH # 1.5 10*3/uL (1.3-4.4); LYMPH % 22.9 % (27.0-41.0); MEAN CELL VOLUME 95.5 fl (81.0-99.0); MEAN CORPUSCULAR HGB 33.1 pg (27.0-31.0); MEAN CORPUSCULAR HGB CONC 34.6 g/dl (33.0-37.0); MEAN PLATELET VOLUME 13.5 fl (9.6-12.3); MONO # 0.3 10*3/uL (0.1-1.0); MONO % 4.9 % (3.0-9.0); NEUT # 4.6 10*3/uL (2.3-7.9); NEUT % 70.8 % (47.0-73.0); PLATELET COUNT AUTOMATED 87 10*3/uL (130-400); RED BLOOD COUNT 3.99 10*6/uL (4.10-5.10); RED CELL DISTRI WIDTH 13.4 % (0-14.5); WHITE BLOOD COUNT 6.5 10*3/uL (4.8-10.8)
[2018-10-07 00:50] LABS: ALKALINE PHOSPHATASE 115 U/L (45-117); BUN 5 mg/dl (7-24); CHLORIDE 108 mmol/L (98-107); CREATININE 0.61 mg/dL (0.55-1.02); LIPASE 81 U/L (73-393); POTASSIUM 2.8 mmol/L (3.5-5.1); SGOT/AST 198 IU/L (3-35); SGPT/ALT 213 U/L (12-78); SODIUM 141 mmol/L (136-145); TOTAL PROTEIN 7.6 gm/dL (6.4-8.2)
[2018-10-07 00:54] LABS: BETA-HCG, QUANT < 1.0 mIU/mL (1-3)
[2018-10-07] MEDS ORDERED: ZOFRAN4 MG PO ×2 (01:37→03:00)
[2018-10-07] MEDS ORDERED: K-TAB20 MEQ PO ×2 (01:37→03:00)
[2018-10-07 01:40] LABS: BILIRUBIN NEGATIVE (NEGATIVE); BLOOD NEGATIVE (NEGATIVE); CLARITY CLEAR (CLEAR); COLOR YELLOW (YELLOW); GLUCOSE NEGATIVE (NEGATIVE); KETONE NEGATIVE (NEGATIVE); LEUKO ESTERASE NEGATIVE (NEGATIVE); NITRITE NEGATIVE (NEGATIVE); UROBILINOGEN 0.2 E.U./dl (0.2-1.0)
[2018-10-07 01:48] LABS: URINE AMPHETAMINES < 1000 (1000ng/ml); URINE BARBITURATES < 200 (200ng/ml); URINE BENZODIAZEPINES < 200 (200ng/ml); URINE CANNABINOIDS (THC) < 50 (50ng/ml); URINE COCAINE < 300 (300ng/ml); URINE METHADONE < 300 (300ng/ml); URINE OPIATES < 300 (300ng/ml)
[2018-10-07 01:49] LABS: URINE PHENCYCLIDINE < 25 (25ng/ml)
[2018-10-07 01:51] LABS: BACTERIA 2+; RBC 0-2 rbc/hpf (0-2); WBC 0-2 wbc/hpf (0-5)
== END 2018-10-07 03:28 | disposition home or self-care (01) ==
LOC: ED 23:20
PROVIDERS: Physician Assistant
DX: R11.2 Nausea with vomiting, unspecified (principal); E87.6 Hypokalemia; R51 Headache; R10.84 Generalized abdominal pain; F12.90 Cannabis use, unspecified, uncomplicated; F17.200 Nicotine dependence, unspecified, uncomplicated; Z79.899 Other long term (current) drug therapy; Z90.49 Acquired absence of other specified parts of digestive tract

== ENCOUNTER → 2018-11-09 | Outpatient (CLI) | payer OTHER ==
[~2018-11-09] MED LIST changes: +K-TAB20 MEQ PO
== END | disposition home or self-care (01) ==
LOC: LAB 10:05
DX: R51 Headache (principal); R07.89 Other chest pain; R06.02 Shortness of breath; R09.89 Other specified symptoms and signs involving the circulatory and respiratory systems; J44.9 Chronic obstructive pulmonary disease, unspecified; F17.210 Nicotine dependence, cigarettes, uncomplicated; F19.10 Other psychoactive substance abuse, uncomplicated; E55.9 Vitamin D deficiency, unspecified; D64.9 Anemia, unspecified; Z83.49 Family history of other endocrine, nutritional and metabolic diseases

== ENCOUNTER 2018-11-20 20:46 | Inpatient (IN) | payer OTHER ==
[~2018-11-20] VITALS: Ht 182.9 cm; Wt 58.2 kg
[2018-11-20 20:48] VITALS: BP 112/79
[2018-11-20 21:22] LABS: BASO # 0.1 10*3/uL (0.0-0.1); BASO % 0.4 % (0.0-1.0); HEMATOCRIT 37.6 % (37.0-47.0); HEMOGLOBIN 13.1 g/dl (12.0-16.0); LYMPH # 1.4 10*3/uL (1.3-4.4); LYMPH % 10.3 % (27.0-41.0); MEAN CELL VOLUME 93.5 fl (81.0-99.0); MEAN CORPUSCULAR HGB 32.6 pg (27.0-31.0); MEAN CORPUSCULAR HGB CONC 34.8 g/dl (33.0-37.0); MONO % 7.1 % (3.0-9.0); NEUT # 11.1 10*3/uL (2.3-7.9); NEUT % 81.9 % (47.0-73.0); PLATELET COUNT AUTOMATED 116 10*3/uL (130-400); RED BLOOD COUNT 4.02 10*6/uL (4.10-5.10); RED CELL DISTRI WIDTH 13.4 % (0-14.5); WHITE BLOOD COUNT 13.6 10*3/uL (4.8-10.8)
[2018-11-20 21:33] LABS: ACT PARTIAL THROMBO TIME 25.4 SECONDS (20.0-32.1)
[2018-11-20 21:40] LABS: ALBUMIN 3.9 gm/dl (3.1-4.5); ALKALINE PHOSPHATASE 151 U/L (45-117); BETA-HCG, QUANT < 1.0 mIU/mL (1-3); BUN 7 mg/dl (7-24); CHLORIDE 107 mmol/L (98-107); SGOT/AST 49 IU/L (3-35); SGPT/ALT 53 U/L (12-78); SODIUM 139 mmol/L (136-145); TOTAL PROTEIN 7.3 gm/dL (6.4-8.2); TROPONIN I < 0.015 ng/ml (<0.045)
[2018-11-20 22:16] VITALS: BP 116/65
--- NOTE | 2018-11-20 22:44 | NUR ---
SPOKE WITH DR. LANCASTER AT THIS TIME, PATIENT STATES SHE IS NAUSEATED BUT CANNOT TAKE ZOFRAN AND CAN ONLY TAKE PHENERGAN. HE STATED HE WILL CHANGE IT
[2018-11-20 22:45] VITALS: BP 122/77
--- NOTE | 2018-11-20 22:45 | NUR ---
A 38, admitted to , under the services of LIANE Puckett DO with a diagnosis of PNEUMONIA. Chief complaint is SHORTNESS OF BREATH. Patient arrived via bed from ER. Monitor applied. Initial assessment completed. Vital signs taken and recorded. LIANE PUCKETT DO notified of admission to the unit. Orders received. See assessment for past medical history, medications and allergies. Patient and/or family oriented to unit. [facility]. Clothing/patient valuable form completed. IVETH POLANCO
[2018-11-20] MEDS ORDERED: Carafate1 GM PO (23:03)
[2018-11-20] MEDS ORDERED: PANTOPRAZOLE SO40 MG PO (23:03)
[2018-11-20] MEDS ORDERED: TRAZODONE100 MG PO (23:04)
[2018-11-20] MEDS ORDERED: VITAMIN D50000 UNIT PO (23:04)
--- NOTE | 2018-11-20 23:05 | NUR ---
PRN PHENERGAN GIVEN FOR PT COMPLAINTS OF NAUSEA. CALL LIGHT WITHIN REACH, WILL MONITOR
--- NOTE | 2018-11-20 23:19 | NUR ---
MEDICATIONS VERIFIED WITH PATIENT
--- NOTE | 2018-11-20 23:30 | NUR ---
PATIENT OFF AND ON RESTING AND THRASHING AROUND IN BED. PATIENT BELIEVES SHE HAD REACTION OF MORPHINE WITH HER SUBOXONE. DR. LANCASTER MADE AWARE THAT PATIENT HAS JUST STARTED TO FEEL SICK AFTER RECIEVING THE MORPHINE
--- NOTE | 2018-11-21 | NUR ---
NOTIFIED DR. LANCASTER THAT PO PHENERGAN INEFFECTIVE. PATIENT NOW ACTIVELY VOMITING. ALSO STATED THAT PO POTASSIUM WAS NOT GIVEN YET PATIENT WAS STILL VERY NAUSEATED WHEN IT WAS ORDERED AND STATED THAT SHE WOULD THROW IT UP AND I WASN'T SURE IF HE WOULD LIKE TO CHANGE IT TO IV. HE STATED HE WOULD TAKE A LOOK AT IT
--- NOTE | 2018-11-21 00:02 | NUR ---
2L NORMAL SALINE BOLUSES GIVEN IN ER. PER SEPSIS PROTOCOL AND PATIENTS WEIGHT IN KG, PATIENT ONLY NEEDS 1700ML.
--- NOTE | 2018-11-21 00:49 | NUR ---
AGAIN ASKED DR. LANCASTER WHAT HE WANTED TO DO ABOUT PATIENTS POTASSIUM TABLETS AND PATIENT BEING NAUSEATED AND THROWING UP OFF AND ON. HE STATED HE WOULD JUST D/C AND ADD IT ON IN THE MORNING
--- NOTE | 2018-11-21 01:19 | NUR ---
SPOKE WITH DR. LANCASTER. PATIENT REQUESTING SLEEPING PILL. PATIENT STATES SHE WILL TAKE HER POTASSIUM AT THIS TIME TOO
--- NOTE | 2018-11-21 01:34 | NUR ---
PATIENT VOMITED UP A MODERATE AMOUNT OF YELLOW VOMIT INTO TRASH CAN. PATIENT STATED SHE WANTS TO TRY AND TAKE HER PILLS BUT WANTS TO SEE IF HER STOMACH WILL CALM DOWN IN A FEW MINUTES
--- NOTE | 2018-11-21 01:43 | NUR ---
PATIENT TOOK RESTORIL AND POTASSIUM TABLETS AT THIS TIME, WILL MONITOR
[2018-11-21 04:15] LABS: BILIRUBIN NEGATIVE (NEGATIVE); BLOOD TRACE-LYSED (NEGATIVE); CLARITY CLEAR (CLEAR); COLOR YELLOW (YELLOW); GLUCOSE NEGATIVE (NEGATIVE); KETONE 2+ (NEGATIVE); LEUKO ESTERASE NEGATIVE (NEGATIVE); NITRITE NEGATIVE (NEGATIVE); PH 6.5 (5.0-9.0)
[2018-11-21 04:24] LABS: BACTERIA TRACE; MUCOUS 1+; RBC 0-2 rbc/hpf (0-2)
--- NOTE | 2018-11-21 04:28 | NUR ---
CALLED DR. LANCASTER AT THIS TIME. PATIENT ACTIVELY VOMITING. THIS NURSE REQUESTED IV PHENERGEN.
--- NOTE | 2018-11-21 04:50 | NUR ---
PATIENT REQUESTING TO GET IN SHOWER AFTER VOMITING YELLOW LIQUID DURING PHENERGEN INFUSION.
[2018-11-21 06:57] LABS: ALBUMIN 3.6 gm/dl (3.1-4.5); ALKALINE PHOSPHATASE 159 U/L (45-117); BUN 6 mg/dl (7-24); CHLORIDE 106 mmol/L (98-107); CREATININE 0.58 mg/dL (0.55-1.02); PHOSPHOROUS 2.4 mg/dL (2.5-4.9); POTASSIUM 2.8 mmol/L (3.5-5.1); SGOT/AST 42 IU/L (3-35); SGPT/ALT 51 U/L (12-78); SODIUM 140 mmol/L (136-145); TOTAL PROTEIN 7.2 gm/dL (6.4-8.2)
[2018-11-21 07:02] LABS: BASO # 0.1 10*3/uL (0.0-0.1); BASO % 0.4 % (0.0-1.0); HEMATOCRIT 39.8 % (37.0-47.0); HEMOGLOBIN 13.8 g/dl (12.0-16.0); LYMPH # 1.3 10*3/uL (1.3-4.4); LYMPH % 8.3 % (27.0-41.0); MEAN CELL VOLUME 94.5 fl (81.0-99.0); MEAN CORPUSCULAR HGB 32.8 pg (27.0-31.0); MEAN CORPUSCULAR HGB CONC 34.7 g/dl (33.0-37.0); MEAN PLATELET VOLUME 13.8 fl (9.6-12.3); MONO # 0.3 10*3/uL (0.1-1.0); NEUT # 14.1 10*3/uL (2.3-7.9); PLATELET COUNT AUTOMATED 113 10*3/uL (130-400); RED BLOOD COUNT 4.21 10*6/uL (4.10-5.10); RED CELL DISTRI WIDTH 13.5 % (0-14.5); WHITE BLOOD COUNT 15.9 10*3/uL (4.8-10.8)
[2018-11-21 08:00] VITALS: BP 126/74
--- NOTE | 2018-11-21 09:00 | NUR ---
PHENERGAN GIVEN AT THIS TIME FOR NAUSEA AND VOMITING. SHE THREW UP THIS MEDICATION AT THIS TIME. AT BEDSIDE.
--- NOTE | 2018-11-21 10:40 | NUR ---
DR SIN NOTIFIED OF THIS PATIENT HAVING MULTIPLE EMESIS AND POTASIUM. HE STATES HE WILL COME AND SEE THIS PATIENT
[2018-11-21 12:00] VITALS: BP 106/59
[2018-11-21 16:00] VITALS: BP 114/71
[2018-11-21 20:00] VITALS: BP 107/59
--- NOTE | 2018-11-21 20:00 | NUR ---
IN TO ASSESS PATIENT. PATIENT STATES THAT SHE FEELS MUCH BETTER THAN LAST NIGHT. DENIES N/V/D/C. BREATHING IS EASY AN REGULAR BUT PATIENT STATES SHE GETS SHORT OF BREATH WITH EXERTION. WHEEZES AND RONCHI NOTED T/O. NO EDEMA NOTED. IV FLUIDS INFUSING. HRR. CALL LIGHT WITHIN REACH, WILL MONITOR
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
[2018-11-22] VITALS: BP 95/64
--- NOTE | 2018-11-22 00:30 | NUR ---
PRN MEDICATION APPEARS EFFECTIVE, PT SLEEPING
--- NOTE | 2018-11-22 03:13 | NUR ---
24 HR chart check completed.
[2018-11-22 07:13] LABS: BASO % 0.4 % (0.0-1.0); EOS % 0.5 % (1.0-4.0); HEMATOCRIT 36.2 % (37.0-47.0); HEMOGLOBIN 12.5 g/dl (12.0-16.0); LYMPH # 2.7 10*3/uL (1.3-4.4); LYMPH % 35.3 % (27.0-41.0); MEAN CELL VOLUME 95.3 fl (81.0-99.0); MEAN CORPUSCULAR HGB 32.9 pg (27.0-31.0); MEAN CORPUSCULAR HGB CONC 34.5 g/dl (33.0-37.0); MEAN PLATELET VOLUME 13.5 fl (9.6-12.3); MONO # 0.5 10*3/uL (0.1-1.0); MONO % 5.8 % (3.0-9.0); NEUT # 4.5 10*3/uL (2.3-7.9); NEUT % 57.9 % (47.0-73.0); PLATELET COUNT AUTOMATED 106 10*3/uL (130-400); RED CELL DISTRI WIDTH 13.9 % (0-14.5); WHITE BLOOD COUNT 7.8 10*3/uL (4.8-10.8)
[2018-11-22 07:31] LABS: ALKALINE PHOSPHATASE 112 U/L (45-117); BUN 6 mg/dl (7-24); CHLORIDE 113 mmol/L (98-107); CREATININE 0.67 mg/dL (0.55-1.02); POTASSIUM 3.4 mmol/L (3.5-5.1); SGOT/AST 28 IU/L (3-35); SGPT/ALT 41 U/L (12-78); SODIUM 144 mmol/L (136-145); TOTAL PROTEIN 6.1 gm/dL (6.4-8.2)
--- NOTE | 2018-11-22 07:37 | NUR ---
24 HR chart check completed.
[2018-11-22 08:00] VITALS: BP 120/72
--- NOTE | 2018-11-22 10:00 | NUR ---
MEDICATED WITH PHENERGAN IV AT 0900 FOR VOMITING. PT IS NOW SLEEPING.
[2018-11-22 12:00] VITALS: BP 132/65
--- NOTE | 2018-11-22 12:45 | NUR ---
Training Director in to talk to patient. Patient states lives at HOME with FAMILY. There are FEW steps in the home. Physician: KELLIE GAITAN Pharmacy: [facility] Home health services: NONE Patient's level of ADLs: INDEPENDENT Patient has working utilities: YES DME: NONE Follow-up physician's appointment after d/c: WILL BE MADE BY HOSPITALIST NURSE DIRECTOR ON DISCHARGE Does patient want to access PORTAL?: NO Discharge plan PT LIVES AT HOME WITH HER FAMILY AND IS INDEPENDENT IN HER CARE. DENIES SHE WILL HAVE ANY NEEDS AT DISCHARGE. STATES SHE WILL RETURN HOME ON DISCHARGE. WILL CONTINUE TO FOLLOW. WILL HAVE A RIDE HOME PER PT.. QIAN JAVED
--- NOTE | 2018-11-22 15:10 | NUR ---
REPORT RECEIVED. PT IS ALERT AND ORIENTED. PT IS ANXIOUS AND CRYING, STATES "I DON'T FEEL GOOD." PT IS REFUSING VITALS AT THIS TIME. WILL CONTINUE TO MONITOR PT. OFFERED GINGERALE-PT DENIED. CALL LIGHT IN REACH.
[2018-11-22 16:00] VITALS: BP 124/52
--- NOTE | 2018-11-22 16:00 | NUR ---
PT REFUSING SECOND IV SITE. ANTIBIOTICS AND FLUIDS BEHIND SCHEDULE DUE TO THIS.
[2018-11-22 20:00] VITALS: BP 122/61
[2018-11-23] VITALS: BP 152/93
--- NOTE | 2018-11-23 00:19 | NUR ---
PATIENT C/O HAVING A HARD TIME FALLING ASLEEP AND ASKED FOR A SLEEPING PILL. PRN RESTORIL GIVEN PER ORDER. WILL MONITOR FOR EFFECTIVENESS.
--- NOTE | 2018-11-23 01:05 | NUR ---
PRN RESTORIL EFFECTIVE. PATIENT ASLEEP AT THIS TIME.
--- NOTE | 2018-11-23 03:48 | NUR ---
24 HR chart check completed.
[2018-11-23 07:31] LABS: ALBUMIN 2.9 gm/dl (3.1-4.5); BUN 4 mg/dl (7-24); CHLORIDE 108 mmol/L (98-107); CREATININE 0.54 mg/dL (0.55-1.02); PHOSPHOROUS 3.2 mg/dL (2.5-4.9); POTASSIUM 3.3 mmol/L (3.5-5.1); SODIUM 140 mmol/L (136-145)
[2018-11-23 08:00] VITALS: BP 164/106
--- NOTE | 2018-11-23 08:00 | NUR ---
Patient resting quietly with no c/o discomfort. Respirations easy and regular. Vital signs stable. No overt distress. DEXTER GARCIA
--- NOTE | 2018-11-23 10:14 | NUR ---
DR SIN NOTIFIED OF HTN.
[2018-11-23 12:00] VITALS: BP 156/101
--- NOTE | 2018-11-23 12:10 | NUR ---
MEDICATED WITH PO TYLENOL AND MOTRIN ORDERED PER PT REQUEST FOR C/O BODY ACHES.
--- NOTE | 2018-11-23 12:15 | NUR ---
MEDICATED WITH IV PHENERGAN ORDERED PER PT REQUEST FOR C/O N/V.
--- NOTE | 2018-11-23 12:26 | NUR ---
PT STATES SHE WILL RETURN HOME ON DISCHARGE WITH NO NEW NEEDS.
--- NOTE | 2018-11-23 15:55 | NUR ---
MEDICATIONS EFFECTIVE FOR PAIN/ACHES/NAUSEA ANDF VOMITTING.
[2018-11-23 16:00] VITALS: BP 101/59
--- NOTE | 2018-11-23 17:24 | NUR ---
MESSAGE LEFT WITH ANSWERING SERVICE FOR CONSULT.
--- NOTE | 2018-11-23 18:12 | NUR ---
DR MILLER RETURNED CALL AND STATES ID WILL SEE PT IN THE AM.
--- NOTE | 2018-11-23 19:00 | NUR ---
ASSUMED CARE FOR THIS PT AT THIS TIME. PT DENIES ANY C/O. CALL LIGHT IN REACH.
[2018-11-23 20:00] VITALS: BP 110/51
--- NOTE | 2018-11-23 23:05 | NUR ---
PT MEDICATED W/RESTORIL PER REQUEST TO HELP PROMOTE SLEEP.
[2018-11-24] VITALS: BP 109/65
--- NOTE | 2018-11-24 06:32 | NUR ---
CALLED DR JAMA WITH [facility] OF 5.7 - HOLD 6 AM DOSE FOR REPROFILE BY PHARMACY.
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
[2018-11-24 12:00] VITALS: BP 140/78
[2018-11-24 16:00] VITALS: BP 127/81
--- NOTE | 2018-11-24 19:32 | NUR ---
C/O NAUSEA; MEDICATED WITH PHENERGAN.
[2018-11-24 20:00] VITALS: BP 117/68
--- NOTE | 2018-11-24 22:42 | NUR ---
MEDICATED WITH RESTORIL FOR C/O INSOMNIA. STATES TRAZODONE NOT EFFECTIVE.
[2018-11-25] VITALS: BP 109/76
--- NOTE | 2018-11-25 04:00 | NUR ---
RESTING IN BED WITH EYES CLOSED; MEDICATION GIVEN EARLIER APPARENTLY EFFECTIVE. CALL LIGHT WITHIN REACH.
[2018-11-25 07:07] LABS: BASO % 0.1 % (0.0-1.0); HEMATOCRIT 37.1 % (37.0-47.0); HEMOGLOBIN 12.7 g/dl (12.0-16.0); LYMPH # 1.5 10*3/uL (1.3-4.4); LYMPH % 18.7 % (27.0-41.0); MEAN CELL VOLUME 95.6 fl (81.0-99.0); MEAN CORPUSCULAR HGB 32.7 pg (27.0-31.0); MEAN CORPUSCULAR HGB CONC 34.2 g/dl (33.0-37.0); MEAN PLATELET VOLUME 12.6 fl (9.6-12.3); MONO # 0.4 10*3/uL (0.1-1.0); MONO % 5.3 % (3.0-9.0); NEUT # 6.2 10*3/uL (2.3-7.9); NEUT % 75.5 % (47.0-73.0); PLATELET COUNT AUTOMATED 148 10*3/uL (130-400); RED BLOOD COUNT 3.88 10*6/uL (4.10-5.10); RED CELL DISTRI WIDTH 13.5 % (0-14.5); WHITE BLOOD COUNT 8.2 10*3/uL (4.8-10.8)
[2018-11-25 07:28] LABS: ALBUMIN 3.1 gm/dl (3.1-4.5); BUN 8 mg/dl (7-24); CHLORIDE 105 mmol/L (98-107); CREATININE 0.56 mg/dL (0.55-1.02); POTASSIUM 3.4 mmol/L (3.5-5.1); SGOT/AST 36 IU/L (3-35); SGPT/ALT 48 U/L (12-78); SODIUM 139 mmol/L (136-145)
[2018-11-25 07:30] LABS: ALKALINE PHOSPHATASE 86 U/L (45-117); TOTAL PROTEIN 6.1 gm/dL (6.4-8.2)
[2018-11-25 08:00] VITALS: BP 129/70
[2018-11-25] MEDS ORDERED: LEVAQUIN750 M1 PO (11:15)
[2018-11-25] MEDS ORDERED: PREDNISONE10 MG PO (11:15)
[2018-11-25] MEDS ORDERED: MUCINEX ER600 MG PO (11:15)
--- NOTE | 2018-11-25 11:52 | NUR ---
PT CONTINUES TO DENY NEEDS AT HOME ON DISCHARGE. WILL CONTINUE TO FOLLOW.
[2018-11-25 12:00] VITALS: BP 108/67
--- NOTE | 2018-11-25 13:07 | NUR ---
Discharge instructions reviewed with patient/family. Patient receptive and verbalizes understanding. Follow-up care arranged. Written instructions given to patient/family. KHOA BARRETT
== END 2018-11-25 13:07 | disposition home or self-care (01) | DRG 720 ==
LOC: ED 20:46 → EDHOLD 21:38 → 5E 21:38
PROVIDERS: Emergency Medicine Emergency Medical Services; Family Medicine; Internal Medicine; ADMIT Family Medicine
DX: A41.1 Sepsis due to other specified staphylococcus (principal); J18.1 Lobar pneumonia, unspecified organism; E44.0 Moderate protein-calorie malnutrition; Z68.1 Body mass index [BMI] 19.9 or less, adult; F41.9 Anxiety disorder, unspecified; K31.89 Other diseases of stomach and duodenum; R11.10 Vomiting, unspecified; F10.10 Alcohol abuse, uncomplicated; R74.0 Nonspecific elevation of levels of transaminase and lactic acid dehydrogenase [LDH]; E87.6 Hypokalemia; E55.9 Vitamin D deficiency, unspecified; R65.20 Severe sepsis without septic shock; E87.8 Other disorders of electrolyte and fluid balance, not elsewhere classified; F11.10 Opioid abuse, uncomplicated; F17.210 Nicotine dependence, cigarettes, uncomplicated; Z80.1 Family history of malignant neoplasm of trachea, bronchus and lung; Z90.49 Acquired absence of other specified parts of digestive tract; Z80.8 Family history of malignant neoplasm of other organs or systems; Z80.3 Family history of malignant neoplasm of breast; Z82.5 Family history of asthma and other chronic lower respiratory diseases; Z79.899 Other long term (current) drug therapy; Z71.6 Tobacco abuse counseling

== ENCOUNTER → 2018-12-07 | Outpatient (CLI) | payer OTHER ==
[~2018-12-07] MED LIST changes: +Carafate1 GM PO; +MUCINEX ER600 MG PO; +PANTOPRAZOLE SO40 MG PO; +PREDNISONE10 MG PO; +TRAZODONE100 MG PO; +VITAMIN D50000 UNIT PO
[2018-12-08 17:10] LABS: AMPHETAMINE SCREEN, URINE Negative ng/mL (Cutoff=1000); BARBITURATES SCREEN, URINE Negative ng/mL (Cutoff=200); BENZODIAZEPINES SCREEN URINE Negative ng/mL (Cutoff=200); BUPRENORPHINE SCREEN URINE Positive ng/mL (Cutoff=10); CANNABINOID SCREEN, URINE Positive ng/mL (Cutoff=20); CREATININE, UR 128.1 mg/dL (20.0-300.0); METHADONE SCREEN, URINE Negative ng/mL (Cutoff=300); OPIATE SCREEN, URINE Negative ng/mL (Cutoff=300); OXYCODONE SCREEN URINE Negative ng/mL (Cutoff=100); PH URINE 6.3 (4.5-8.9); PROPOXYPHENE SCREEN, URINE Negative ng/mL (Cutoff=300)
[2018-12-08 20:06] LABS: HEPATITIS C QUANTITATION 7870000 IU/mL (.)
== END | disposition home or self-care (01) ==
LOC: LAB 16:12
PROVIDERS: Internal Medicine Gastroenterology
DX: B19.20 Unspecified viral hepatitis C without hepatic coma (principal)

== ENCOUNTER → 2019-04-29 | Outpatient (CLI) | payer OTHER ==
[2019-04-29 11:00] LABS: ALBUMIN 4.2 gm/dl (3.1-4.5); ALKALINE PHOSPHATASE 78 U/L (45-117); BUN 10 mg/dl (7-24); CHLORIDE 113 mmol/L (98-107); CREATININE 0.69 mg/dL (0.55-1.02); FREE T4 0.86 ng/dl (0.76-1.46); POTASSIUM 3.6 mmol/L (3.5-5.1); SGOT/AST 132 IU/L (3-35); SGPT/ALT 153 U/L (12-78); SODIUM 142 mmol/L (136-145); T3 UPTAKE 27 % (31-39); THYROXINE (T4) TOTAL 9.7 ug/dl (4.8-13.9); TOTAL PROTEIN 7.6 gm/dL (6.4-8.2)
[2019-04-29 11:07] LABS: THYROID STIM HORMONE (HS) 0.865 uIU/ml (0.358-4.75)
[2019-04-30 05:04] LABS: THYROID PEROXIDASE (TPO) AB <9 IU/mL (0-34); TOTAL T3 (TT3) 002188 151 ng/dL (71-180)
== END | disposition home or self-care (01) ==
LOC: LAB 10:08
PROVIDERS: Internal Medicine Endocrinology, Diabetes & Metabolism
DX: R63.4 Abnormal weight loss (principal)

== ENCOUNTER 2019-05-03 10:20 | Emergency (ER) | payer OTHER ==
[2019-05-03] MEDS ORDERED: Motrin,Rufen800 MG PO (13:03)
== END 2019-05-03 13:15 | disposition home or self-care (01) ==
LOC: ED 10:20
DX: M84.361A Stress fracture, right tibia, initial encounter for fracture (principal); F17.200 Nicotine dependence, unspecified, uncomplicated; Z88.8 Allergy status to other drugs, medicaments and biological substances; Z79.899 Other long term (current) drug therapy; Z79.2 Long term (current) use of antibiotics; Z90.49 Acquired absence of other specified parts of digestive tract; W22.09XA Striking against other stationary object, initial encounter; Y93.89 Activity, other specified; Y92.89 Other specified places as the place of occurrence of the external cause; Y99.8 Other external cause status

== ENCOUNTER 2019-07-12 23:30 | Emergency (ER) | payer OTHER ==
[~2019-07-12] VITALS: Ht 182.8 cm; Wt 68.0 kg
[2019-07-12] MEDS ORDERED: DOXYCYCLINE100 M3 PO (23:37)
[2019-07-12] MEDS ORDERED: CETIRIZINE HYDR10 MG PO (23:37)
[2019-07-13] MEDS ORDERED: VISTARIL50 MG PO (00:21)
[2019-07-13] MEDS ORDERED: ELIMITE 5%60 GM T (00:21)
[2019-07-13] MEDS ORDERED: DIFLUCAN150 MG PO (00:29)
== END 2019-07-13 00:40 | disposition home or self-care (01) ==
LOC: ED 23:30
DX: B86 Scabies (principal); F17.200 Nicotine dependence, unspecified, uncomplicated; Z88.8 Allergy status to other drugs, medicaments and biological substances; Z79.899 Other long term (current) drug therapy

== ENCOUNTER → 2019-08-09 | Outpatient (CLI) | payer OTHER ==
[~2019-08-09] MED LIST changes: +CETIRIZINE HYDR10 MG PO; +DIFLUCAN150 MG PO; +DOXYCYCLINE100 M3 PO; +ELIMITE 5%60 GM T; +VISTARIL50 MG PO
--- NOTE | 2019-08-09 07:20 | NUR ---
INFORMED CONSENT SIGNED FOR STANDARD STRESS TEST WITH DR. TIM. RESTING EKG SINUS BRADYCARDIA, HR 51, BP 110/60. COMPLETED 7:00 OF A TWO MINUTE ALONZO PROTOCOL COMPLETING 1:00 STAGE IV, 3.4 MPH/14% GRADE. TEST TERMINATED D/T FATIGUE. PEAK HEART RATE OF 106 ACHIEVED WHICH IS 58% PREDICTED MAXIMUM AND A PEAK BP OF 134/70. NO ARRHYTHMIAS OR ST CHANGES NOTED. HAS AN AVERAGE EXERCISE TOLERANCE. LAST RECOVERY HR 58, BP 108/54. THIS IS A NEGATIVE SUBOPTIMAL STRESS TEST. LEFT CARDIOLOGY IN STABLE CONDITION.
== END | disposition home or self-care (01) ==
LOC: CARD 00:19
DX: R07.9 Chest pain, unspecified (principal); R73.03 Prediabetes

== ENCOUNTER 2019-10-17 15:39 | Emergency (ER) | payer OTHER ==
[~2019-10-17] VITALS: Ht 182.8 cm; Wt 72.6 kg
[2019-10-17 16:41] LABS: BASO % 0.6 % (0.0-1.0); EOS # 0.2 10*3/uL (0.0-0.4); EOS % 2.1 % (1.0-4.0); HEMATOCRIT 40.2 % (37.0-47.0); LYMPH % 27.8 % (27.0-41.0); MEAN CORPUSCULAR HGB 32.6 pg (27.0-31.0); MEAN CORPUSCULAR HGB CONC 34.3 g/dl (33.0-37.0); MEAN PLATELET VOLUME 13.3 fl (9.6-12.3); MONO # 0.6 10*3/uL (0.1-1.0); MONO % 7.8 % (3.0-9.0); NEUT # 4.4 10*3/uL (2.3-7.9); NEUT % 61.6 % (47.0-73.0); PLATELET COUNT AUTOMATED 72 10*3/uL (130-400); RED BLOOD COUNT 4.23 10*6/uL (4.10-5.10); RED CELL DISTRI WIDTH 12.7 % (0-14.5); WHITE BLOOD COUNT 7.1 10*3/uL (4.8-10.8)
[2019-10-17 16:52] LABS: BILIRUBIN NEGATIVE (NEGATIVE); CLARITY CLEAR (CLEAR); COLOR YELLOW (YELLOW); GLUCOSE NEGATIVE (NEGATIVE); KETONE NEGATIVE (NEGATIVE)
[2019-10-17 16:53] LABS: BLOOD NEGATIVE (NEGATIVE); LEUKO ESTERASE 1+ (NEGATIVE); NITRITE NEGATIVE (NEGATIVE)
[2019-10-17 16:55] LABS: ALBUMIN 3.8 gm/dl (3.1-4.5); ALKALINE PHOSPHATASE 112 U/L (45-117); BUN 20 mg/dl (7-24); CHLORIDE 108 mmol/L (98-107); CREATININE 0.75 mg/dL (0.55-1.02); POTASSIUM 3.6 mmol/L (3.5-5.1); SGOT/AST 414 IU/L (3-35); SGPT/ALT 533 U/L (12-78); SODIUM 139 mmol/L (136-145); TOTAL PROTEIN 7.6 gm/dL (6.4-8.2)
[2019-10-17 16:59] LABS: RBC 0-2 rbc/hpf (0-2)
[2019-10-17 17:00] LABS: BACTERIA 1+; MUCOUS TRACE; WBC 16-20 wbc/hpf (0-5)
== END 2019-10-17 20:13 | disposition home or self-care (01) ==
LOC: ED 15:39
PROVIDERS: Nurse Practitioner Family
DX: R74.0 Nonspecific elevation of levels of transaminase and lactic acid dehydrogenase [LDH] (principal); R10.9 Unspecified abdominal pain; R07.81 Pleurodynia; F17.200 Nicotine dependence, unspecified, uncomplicated; Z88.6 Allergy status to analgesic agent

== ENCOUNTER 2019-10-20 12:22 | Inpatient (IN) | payer OTHER ==
[~2019-10-20] VITALS: Ht 185.4 cm; Wt 69.9 kg
[2019-10-20 12:29] VITALS: BP 89/69
[2019-10-20] MEDS ORDERED: GABAPENTIN800 MG PO (12:50)
[2019-10-20] MEDS ORDERED: MINIPRESS1 M1 PO (12:51)
[2019-10-20] MEDS ORDERED: PRAZOSIN HCL1 MG PO (12:51)
[2019-10-20 13:13] LABS: BASO % 0.7 % (0.0-1.0); EOS # 0.1 10*3/uL (0.0-0.4); EOS % 1.8 % (1.0-4.0); HEMATOCRIT 39.1 % (37.0-47.0); LYMPH # 1.5 10*3/uL (1.3-4.4); LYMPH % 26.4 % (27.0-41.0); MEAN CELL VOLUME 95.8 fl (81.0-99.0); MEAN CORPUSCULAR HGB 31.9 pg (27.0-31.0); MEAN CORPUSCULAR HGB CONC 33.2 g/dl (33.0-37.0); MEAN PLATELET VOLUME 13.5 fl (9.6-12.3); MONO # 0.4 10*3/uL (0.1-1.0); MONO % 7.3 % (3.0-9.0); NEUT # 3.5 10*3/uL (2.3-7.9); NEUT % 63.8 % (47.0-73.0); PLATELET COUNT AUTOMATED 74 10*3/uL (130-400); RED BLOOD COUNT 4.08 10*6/uL (4.10-5.10); RED CELL DISTRI WIDTH 12.6 % (0-14.5); WHITE BLOOD COUNT 5.5 10*3/uL (4.8-10.8)
[2019-10-20 13:22] LABS: ACT PARTIAL THROMBO TIME 28.2 SECONDS (20.0-32.1)
[2019-10-20 13:27] LABS: ALBUMIN 3.3 gm/dl (3.1-4.5); ALKALINE PHOSPHATASE 96 U/L (45-117); BUN 11 mg/dl (7-24); CHLORIDE 109 mmol/L (98-107); LIPASE 45 U/L (73-393); POTASSIUM 3.9 mmol/L (3.5-5.1); SGOT/AST 82 IU/L (3-35); SGPT/ALT 236 U/L (12-78); SODIUM 139 mmol/L (136-145); TOTAL PROTEIN 6.8 gm/dL (6.4-8.2)
[2019-10-20 13:33] LABS: BETA-HCG, QUANT < 1.0 mIU/mL (1-3); TROPONIN I < 0.015 ng/ml (<0.045)
[2019-10-20 14:16] VITALS: BP 91/46
[2019-10-20 14:21] LABS: BILIRUBIN NEGATIVE (NEGATIVE); BLOOD NEGATIVE (NEGATIVE); CLARITY CLEAR (CLEAR); COLOR YELLOW (YELLOW); GLUCOSE NEGATIVE (NEGATIVE); KETONE NEGATIVE (NEGATIVE); LEUKO ESTERASE TRACE (NEGATIVE); NITRITE NEGATIVE (NEGATIVE); SPECIFIC GRAVITY 1.005 (1.005-1.030)
[2019-10-20 14:27] LABS: BACTERIA TRACE; EPITHELIAL CELLS 0-2; MUCOUS TRACE; RBC 0-2 rbc/hpf (0-2)
[2019-10-20 15:46] VITALS: BP 104/63
[2019-10-20 16:00] VITALS: BP 109/53
[2019-10-20 19:54] LABS: URINE AMPHETAMINES < 1000 (1000ng/ml); URINE BARBITURATES < 200 (200ng/ml); URINE BENZODIAZEPINES < 200 (200ng/ml); URINE CANNABINOIDS (THC) > 50 (50ng/ml); URINE COCAINE < 300 (300ng/ml); URINE METHADONE < 300 (300ng/ml); URINE OPIATES < 300 (300ng/ml)
[2019-10-20 19:57] LABS: URINE PHENCYCLIDINE < 25 (25ng/ml)
[2019-10-20 20:00] VITALS: BP 111/50
[2019-10-21] VITALS (7 sets, daily range): BP systolic 102–120; BP diastolic 57–80
[2019-10-21 09:10] LABS: HEP B CORE AB, IGM Negative (Negative); HEPATITIS B SURFACE AG Negative (Negative)
[2019-10-21 11:04] LABS: HEPATITIS C VIRUS ANTIBODY >11.0 s/co (0.0-0.9)
[2019-10-21] MEDS ORDERED: ZITHROMAX TRI-500 M1 PO (17:08)
[2019-10-21] MEDS ORDERED: PROTONIX40 MG PO (17:08)
== END 2019-10-21 19:04 | disposition home or self-care (01) | DRG 241 ==
LOC: ED 12:22 → EDHOLD 14:09 → 4E 14:09
PROVIDERS: Emergency Medicine; Internal Medicine Nephrology; ADMIT Internal Medicine
PROC: 0DB78ZX Excision of Stomach, Pylorus, Via Natural or Artificial Opening Endoscopic, Diagnostic (ICD-10-PCS; principal; 2019-10-21)
DX: K29.70 Gastritis, unspecified, without bleeding (principal); K31.89 Other diseases of stomach and duodenum; J45.901 Unspecified asthma with (acute) exacerbation; I95.9 Hypotension, unspecified; R00.1 Bradycardia, unspecified; F17.210 Nicotine dependence, cigarettes, uncomplicated; R07.9 Chest pain, unspecified; F41.9 Anxiety disorder, unspecified; B17.10 Acute hepatitis C without hepatic coma; J32.9 Chronic sinusitis, unspecified; J44.1 Chronic obstructive pulmonary disease with (acute) exacerbation; R79.89 Other specified abnormal findings of blood chemistry; Z87.898 Personal history of other specified conditions; Z88.8 Allergy status to other drugs, medicaments and biological substances; Z90.49 Acquired absence of other specified parts of digestive tract; Z79.899 Other long term (current) drug therapy; Z80.8 Family history of malignant neoplasm of other organs or systems; Z80.1 Family history of malignant neoplasm of trachea, bronchus and lung; Z80.3 Family history of malignant neoplasm of breast; Z83.6 Family history of other diseases of the respiratory system; K21.9 Gastro-esophageal reflux disease without esophagitis

== ENCOUNTER → 2019-12-01 | Outpatient (CLI) | payer OTHER ==
[~2019-12-01] MED LIST changes: +GABAPENTIN800 MG PO; +MINIPRESS1 M1 PO; +PRAZOSIN HCL1 MG PO; +ZITHROMAX TRI-500 M1 PO
[2019-12-01 11:32] LABS: BILIRUBIN Negative (Negative); BLOOD Negative (Negative); CLARITY Clear (Clear); COLOR Dark Yellow (Yellow); GLUCOSE Negative (Negative); KETONE Negative (Negative); LEUKO ESTERASE Trace (Negative); NITRITE Negative (Negative); SPECIFIC GRAVITY 1.025 (1.001-1.030)
[2019-12-01 11:57] LABS: ALBUMIN 3.8 gm/dl (3.1-4.5); BUN 11 mg/dl (7-24); CHLORIDE 109 mmol/L (98-107); CREATININE 0.69 mg/dL (0.55-1.02); POTASSIUM 3.7 mmol/L (3.5-5.1); SGOT/AST 186 IU/L (3-35); SGPT/ALT 244 U/L (12-78); SODIUM 138 mmol/L (136-145); TOTAL PROTEIN 7.3 gm/dL (6.4-8.2)
[2019-12-01 11:59] LABS: BACTERIA 3+; MUCOUS 1+
[2019-12-01 12:06] LABS: ALKALINE PHOSPHATASE 120 U/L (45-117); FREE T4 0.97 ng/dl (0.76-1.46)
[2019-12-02 07:06] LABS: RHEUMATOID ARTHRITIS FACTOR 13.8 IU/mL (0.0-13.9)
[2019-12-03 00:06] LABS: HCV LOG10 6.531 (.); HEPATITIS C QNT 3400000 IU/mL (.)
== END | disposition home or self-care (01) ==
LOC: LAB 10:46
PROVIDERS: ATTEND Internal Medicine
DX: R10.9 Unspecified abdominal pain (principal); R76.8 Other specified abnormal immunological findings in serum; F32.9 Major depressive disorder, single episode, unspecified; R59.0 Localized enlarged lymph nodes

== ENCOUNTER → 2019-12-29 | Outpatient (CLI) | payer OTHER | END | disposition home or self-care (01) | LOC: US 12-07 13:30 | PROVIDERS: ATTEND Internal Medicine | DX: R10.2 Pelvic and perineal pain (principal); R10.9 Unspecified abdominal pain; Z90.49 Acquired absence of other specified parts of digestive tract ==

== ENCOUNTER 2020-03-07 17:05 | Emergency (ER) | payer OTHER ==
[~2020-03-07] VITALS: Ht 182.8 cm; Wt 66.7 kg
[2020-03-07 17:43] LABS: BASO % 0.6 % (0.0-1.0); EOS # 0.1 10*3/uL (0.0-0.4); EOS % 1.8 % (1.0-4.0); HEMATOCRIT 39.2 % (37.0-47.0); LYMPH # 2.2 10*3/uL (1.3-4.4); LYMPH % 32.9 % (27.0-41.0); MEAN CELL VOLUME 94.9 fl (81.0-99.0); MEAN CORPUSCULAR HGB 31.2 pg (27.0-31.0); MEAN CORPUSCULAR HGB CONC 32.9 g/dl (33.0-37.0); MONO # 0.4 10*3/uL (0.1-1.0); MONO % 5.7 % (3.0-9.0); NEUT # 3.9 10*3/uL (2.3-7.9); NEUT % 58.8 % (47.0-73.0); PLATELET COUNT AUTOMATED 91 10*3/uL (130-400); RED BLOOD COUNT 4.13 10*6/uL (4.10-5.10); RED CELL DISTRI WIDTH 13.4 % (0-14.5); WHITE BLOOD COUNT 6.6 10*3/uL (4.8-10.8)
[2020-03-07 17:56] LABS: ACT PARTIAL THROMBO TIME 27.1 SECONDS (20.0-32.1); INTERNATIONAL NORM RATIO 1.1 (2.0-3.5)
[2020-03-07 18:03] LABS: ALBUMIN 3.7 gm/dl (3.1-4.5); ALKALINE PHOSPHATASE 86 U/L (45-117); BUN 12 mg/dl (7-24); CHLORIDE 108 mmol/L (98-107); CREATININE 0.63 mg/dL (0.55-1.02); POTASSIUM 3.6 mmol/L (3.5-5.1); SGOT/AST 116 IU/L (3-35); SGPT/ALT 130 U/L (12-78); SODIUM 140 mmol/L (136-145); TOTAL PROTEIN 7.1 gm/dL (6.4-8.2)
[2020-03-07 18:05] LABS: TROPONIN I < 0.015 ng/ml (<0.045)
== END 2020-03-07 19:25 | disposition left against medical advice (07) ==
LOC: ED 17:05
PROVIDERS: Family Medicine
DX: R07.9 Chest pain, unspecified (principal); R06.02 Shortness of breath; J02.9 Acute pharyngitis, unspecified; Z88.8 Allergy status to other drugs, medicaments and biological substances; Z87.891 Personal history of nicotine dependence

== ENCOUNTER → 2020-06-01 | Outpatient (CLI) | payer OTHER | END | disposition home or self-care (01) | LOC: COVID19 15:40 | PROVIDERS: ATTEND Internal Medicine | DX: R50.9 Fever, unspecified (principal); Z20.822 Contact with and (suspected) exposure to COVID-19 ==

== ENCOUNTER → 2020-07-11 | Outpatient (CLI) | payer OTHER ==
[2020-07-11 12:35] LABS: HEMATOCRIT 39.2 % (37.0-47.0); MEAN CELL VOLUME 93.8 fl (81.0-99.0); MEAN CORPUSCULAR HGB 31.8 pg (27.0-31.0); MEAN CORPUSCULAR HGB CONC 33.9 g/dl (33.0-37.0); MEAN PLATELET VOLUME 12.7 fl (9.6-12.3); RED BLOOD COUNT 4.18 10*6/uL (4.10-5.10); RED CELL DISTRI WIDTH 13.3 % (0-14.5); WHITE BLOOD COUNT 5.9 10*3/uL (4.8-10.8)
[2020-07-11 13:00] LABS: BUN 12 mg/dl (7-24); CHLORIDE 109 mmol/L (98-107); CHOLESTEROL 152 mg/dL (<200); CREATININE 0.62 mg/dL (0.55-1.02); LDL CHOLESTEROL 99 mg/dL (9-159); POTASSIUM 3.7 mmol/L (3.5-5.1); SGOT/AST 61 IU/L (3-35); SGPT/ALT 73 U/L (12-78); SODIUM 139 mmol/L (136-145); TOTAL PROTEIN 7.8 gm/dL (6.4-8.2); TRIGLYCERIDES 56 mg/dl (<150)
[2020-07-11 13:02] LABS: ALKALINE PHOSPHATASE 75 U/L (45-117)
[2020-07-12 21:06] LABS: HEPATITIS C QUANTITATION 2260000 IU/mL (.)
== END | disposition home or self-care (01) ==
LOC: LAB 12:00
PROVIDERS: ATTEND Nurse Practitioner Family
DX: B19.20 Unspecified viral hepatitis C without hepatic coma (principal); R53.83 Other fatigue; Z72.51 High risk heterosexual behavior

== ENCOUNTER 2020-09-03 17:15 | Emergency (ER) | payer OTHER ==
[~2020-09-03] VITALS: Wt 68.0 kg
[2020-09-03 18:20] LABS: BASO % 0.3 % (0.0-1.0); HEMATOCRIT 39.5 % (37.0-47.0); LYMPH # 1.6 10*3/uL (1.3-4.4); LYMPH % 19.8 % (27.0-41.0); MEAN CELL VOLUME 92.1 fl (81.0-99.0); MEAN CORPUSCULAR HGB 32.4 pg (27.0-31.0); MEAN CORPUSCULAR HGB CONC 35.2 g/dl (33.0-37.0); MEAN PLATELET VOLUME 12.3 fl (9.6-12.3); MONO # 0.5 10*3/uL (0.1-1.0); MONO % 6.4 % (3.0-9.0); NEUT # 5.9 10*3/uL (2.3-7.9); NEUT % 73.2 % (47.0-73.0); PLATELET COUNT AUTOMATED 123 10*3/uL (130-400); RED BLOOD COUNT 4.29 10*6/uL (4.10-5.10); RED CELL DISTRI WIDTH 13.2 % (0-14.5)
[2020-09-03 18:38] LABS: ALBUMIN 3.6 gm/dl (3.1-4.5); ALKALINE PHOSPHATASE 94 U/L (45-117); BUN 8 mg/dl (7-24); CHLORIDE 104 mmol/L (98-107); CREATININE 0.55 mg/dL (0.55-1.02); LIPASE 67 U/L (73-393); POTASSIUM 3.1 mmol/L (3.5-5.1); SGOT/AST 53 IU/L (3-35); SGPT/ALT 91 U/L (12-78); SODIUM 134 mmol/L (136-145); TOTAL PROTEIN 7.1 gm/dL (6.4-8.2)
[2020-09-03] MEDS ORDERED: REGLAN10 M1 PO (20:35)
== END 2020-09-03 20:36 | disposition home or self-care (01) ==
LOC: ED 17:15
PROVIDERS: Physician Assistant
DX: K29.70 Gastritis, unspecified, without bleeding (principal); R11.2 Nausea with vomiting, unspecified; F17.200 Nicotine dependence, unspecified, uncomplicated; Z79.899 Other long term (current) drug therapy; Z88.8 Allergy status to other drugs, medicaments and biological substances; Z90.49 Acquired absence of other specified parts of digestive tract

== ENCOUNTER 2020-09-28 18:29 | Emergency (ER) | payer OTHER ==
[~2020-09-28] VITALS: Ht 182.8 cm; Wt 63.5 kg
[2020-09-28] MEDS ORDERED: CIPRO500 MG PO (20:28)
[2020-09-28] MEDS ORDERED: IBUPROFEN600 MG PO (20:28)
== END 2020-09-28 21:38 | disposition home or self-care (01) ==
LOC: ED 18:29
DX: S91.311A Laceration without foreign body, right foot, initial encounter (principal); F17.200 Nicotine dependence, unspecified, uncomplicated; Z88.8 Allergy status to other drugs, medicaments and biological substances; Z79.899 Other long term (current) drug therapy; Z79.2 Long term (current) use of antibiotics; Z90.49 Acquired absence of other specified parts of digestive tract; W22.8XXA Striking against or struck by other objects, initial encounter; Y93.89 Activity, other specified; Y92.89 Other specified places as the place of occurrence of the external cause; Y99.8 Other external cause status

== ENCOUNTER 2020-10-04 19:50 | Emergency (ER) | payer OTHER ==
[~2020-10-04 19:50] MED LIST changes: +CIPRO500 MG PO; +IBUPROFEN600 MG PO
== END 2020-10-04 20:00 | disposition left against medical advice (07) ==
LOC: ED 19:50
DX: M79.671 Pain in right foot (principal); Z53.21 Procedure and treatment not carried out due to patient leaving prior to being seen by health care provider

== ENCOUNTER → 2021-01-04 | Outpatient (CLI) | payer OTHER | END | disposition home or self-care (01) | LOC: US 12-13 09:00 | PROVIDERS: ATTEND Internal Medicine | DX: R16.1 Splenomegaly, not elsewhere classified (principal); Z90.49 Acquired absence of other specified parts of digestive tract ==

== ENCOUNTER → 2021-03-01 | Outpatient (CLI) | payer OTHER ==
[2021-03-01 16:22] LABS: BASO # 0.1 10*3/uL (0.0-0.1); BASO % 0.9 % (0.0-1.0); EOS # 0.3 10*3/uL (0.0-0.4); HEMATOCRIT 40.5 % (37.0-47.0); LYMPH # 1.8 10*3/uL (1.3-4.4); LYMPH % 33.1 % (27.0-41.0); MEAN CELL VOLUME 93.3 fl (81.0-99.0); MEAN CORPUSCULAR HGB 32.5 pg (27.0-31.0); MEAN CORPUSCULAR HGB CONC 34.8 g/dl (33.0-37.0); MONO # 0.3 10*3/uL (0.1-1.0); MONO % 6.2 % (3.0-9.0); NEUT # 2.9 10*3/uL (2.3-7.9); NEUT % 53.6 % (47.0-73.0); PLATELET COUNT AUTOMATED 89 10*3/uL (130-400); RED BLOOD COUNT 4.34 10*6/uL (4.10-5.10); RED CELL DISTRI WIDTH 12.9 % (0-14.5); WHITE BLOOD COUNT 5.3 10*3/uL (4.8-10.8)
[2021-03-01 16:39] LABS: ALBUMIN 3.9 gm/dl (3.1-4.5); TOTAL PROTEIN 7.6 gm/dL (6.4-8.2)
[2021-03-05 08:07] LABS: HEPATITIS A AB, TOTAL Negative (Negative); HEPATITIS B SURFACE AB Reactive (.); HEPATITIS B SURFACE AG Negative (Negative)
[2021-03-05 14:08] LABS: HEPATITIS C QNT See Final Results IU/mL (.)
== END ==
LOC: LAB 15:30
PROVIDERS: ATTEND Internal Medicine Gastroenterology
DX: B18.2 Chronic viral hepatitis C (principal)

== ENCOUNTER 2021-07-03 07:44 | Emergency (ER) | payer OTHER ==
[~2021-07-03] VITALS: Ht 182.8 cm; Wt 64.0 kg
[2021-07-03 08:30] LABS: BASO % 0.2 % (0.0-1.0); HEMATOCRIT 44.9 % (37.0-47.0); LYMPH # 1.1 10*3/uL (1.3-4.4); LYMPH % 12.5 % (27.0-41.0); MEAN CELL VOLUME 92.6 fl (81.0-99.0); MEAN CORPUSCULAR HGB CONC 35.6 g/dl (33.0-37.0); MEAN PLATELET VOLUME 12.7 fl (9.6-12.3); MONO # 0.4 10*3/uL (0.1-1.0); MONO % 4.1 % (3.0-9.0); NEUT # 7.4 10*3/uL (2.3-7.9); NEUT % 82.9 % (47.0-73.0); PLATELET COUNT AUTOMATED 125 10*3/uL (130-400); RED BLOOD COUNT 4.85 10*6/uL (4.10-5.10); RED CELL DISTRI WIDTH 12.2 % (0-14.5); WHITE BLOOD COUNT 8.9 10*3/uL (4.8-10.8)
[2021-07-03 08:39] LABS: ALKALINE PHOSPHATASE 94 U/L (45-117); BUN 10 mg/dl (7-24); CHLORIDE 98 mmol/L (98-107); CREATININE 0.69 mg/dL (0.55-1.02); POTASSIUM 3.1 mmol/L (3.5-5.1); SGOT/AST 20 IU/L (3-35); SGPT/ALT 16 U/L (12-78); SODIUM 134 mmol/L (136-145); TOTAL PROTEIN 8.6 gm/dL (6.4-8.2)
[2021-07-03 08:40] LABS: INTERNATIONAL NORM RATIO 1.1 (2.0-3.5)
[2021-07-03 08:42] LABS: LIPASE 38 U/L (73-393)
[2021-07-03 08:44] LABS: BETA-HCG, QUANT < 1.0 mIU/mL (1-3)
[2021-07-03] MEDS ORDERED: PHENERGAN25 M3 PO (11:44)
== END 2021-07-03 12:01 | disposition home or self-care (01) ==
LOC: ED 07:44
PROVIDERS: Emergency Medicine
DX: R11.2 Nausea with vomiting, unspecified (principal); R10.13 Epigastric pain; Z88.8 Allergy status to other drugs, medicaments and biological substances; Z98.890 Other specified postprocedural states; F17.200 Nicotine dependence, unspecified, uncomplicated

== ENCOUNTER 2021-09-04 14:48 | Emergency (ER) | payer OTHER ==
[~2021-09-04] VITALS: Ht 182.8 cm; Wt 72.6 kg
[~2021-09-04 14:48] MED LIST changes: +PHENERGAN25 M3 PO
[2021-09-04] MEDS ORDERED: ADDERALL 20 MG20 MG PO (18:27)
== END 2021-09-04 18:46 | disposition left against medical advice (07) ==
LOC: ED 14:48
DX: M54.50 Low back pain, unspecified (principal); Z88.8 Allergy status to other drugs, medicaments and biological substances; Z90.49 Acquired absence of other specified parts of digestive tract; Z87.891 Personal history of nicotine dependence

== ENCOUNTER → 2022-05-06 | Outpatient (CLI) | payer OTHER ==
[~2022-05-06] MED LIST changes: +ADDERALL 20 MG20 MG PO
[2022-05-06 15:01] LABS: HEMATOCRIT 38.1 % (37.0-47.0); MEAN CELL VOLUME 96.7 fl (81.0-99.0); MEAN CORPUSCULAR HGB 32.7 pg (27.0-31.0); MEAN CORPUSCULAR HGB CONC 33.9 g/dl (33.0-37.0); RED BLOOD COUNT 3.94 10*6/uL (4.10-5.10); RED CELL DISTRI WIDTH 13.2 % (0-14.5); WHITE BLOOD COUNT 7.2 10*3/uL (4.8-10.8)
[2022-05-06 15:23] LABS: ALKALINE PHOSPHATASE 58 U/L (46-116); BUN 14 mg/dl (9-23); CHLORIDE 107 mmol/L (98-107); CHOLESTEROL 152 mg/dL (<200); FREE T4 0.81 ng/dl (0.89-1.76); GAMMA GLUTAMYL TRANSPEPTIDASE 17 U/L (0-73); LDL CHOLESTEROL 78 mg/dL (9-159); POTASSIUM 3.8 mmol/L (3.4-5.1); SGPT/ALT 9 U/L (10-49); TOTAL PROTEIN 6.9 gm/dL (6.0-8.0); TRIGLYCERIDES 93 mg/dl (<150)
[2022-05-06 15:56] LABS: VITAMIN D, 25-HYDROXY 23.5 ng/mL (30-100)
[2022-05-07 07:06] LABS: HBSAG Negative (Negative); HEP B CORE AB, IGM Negative (Negative)
[2022-05-09 17:06] LABS: HEPATITIS C ANTIBODY Reactive (Non Reactive)
== END | disposition home or self-care (01) ==
LOC: LAB 14:10
PROVIDERS: ATTEND Family Medicine
DX: Z00.00 Encounter for general adult medical examination without abnormal findings (principal); E55.9 Vitamin D deficiency, unspecified; R53.83 Other fatigue; K76.89 Other specified diseases of liver; R21 Rash and other nonspecific skin eruption

== ENCOUNTER 2022-09-28 09:35 | Emergency (ER) | payer OTHER ==
[~2022-09-28] VITALS: Ht 185.4 cm; Wt 63.5 kg
[2022-09-28 10:21] LABS: BASO # 0.1 10*3/uL (0.0-0.1); BASO % 0.8 % (0.0-1.0); EOS # 0.2 10*3/uL (0.0-0.4); HEMATOCRIT 42.1 % (37.0-47.0); LYMPH % 26.4 % (27.0-41.0); MEAN CELL VOLUME 95.7 fl (81.0-99.0); MEAN CORPUSCULAR HGB 32.3 pg (27.0-31.0); MEAN CORPUSCULAR HGB CONC 33.7 g/dl (33.0-37.0); MEAN PLATELET VOLUME 12.2 fl (9.6-12.3); MONO # 0.4 10*3/uL (0.1-1.0); MONO % 4.7 % (3.0-9.0); NEUT # 4.9 10*3/uL (2.3-7.9); NEUT % 65.8 % (47.0-73.0); PLATELET COUNT AUTOMATED 144 10*3/uL (130-400); RED CELL DISTRI WIDTH 13.5 % (0-14.5); WHITE BLOOD COUNT 7.4 10*3/uL (4.8-10.8)
[2022-09-28 10:34] LABS: ACT PARTIAL THROMBO TIME 24.8 SECONDS (20.0-32.1); INTERNATIONAL NORM RATIO 1.1 (2.0-3.5)
[2022-09-28 10:44] LABS: ALKALINE PHOSPHATASE 71 U/L (46-116); BUN 12 mg/dl (9-23); CHLORIDE 109 mmol/L (98-107); LIPASE 57 U/L (12-53); POTASSIUM 3.2 mmol/L (3.4-5.1); SGPT/ALT 9 U/L (10-49); TOTAL PROTEIN 6.9 gm/dL (6.0-8.0)
[2022-09-28 10:53] LABS: BILIRUBIN Negative (Negative); BLOOD Negative (Negative); CLARITY Cloudy (Clear); COLOR Yellow (Yellow); GLUCOSE Negative (Negative); KETONE Trace (Negative); LEUKO ESTERASE Negative (Negative); NITRITE Negative (Negative); SPECIFIC GRAVITY >= 1.030 (1.001-1.030)
[2022-09-28 11:16] LABS: URINE AMPHETAMINES Negative (1000ng/ml); URINE BARBITURATES Negative (200ng/ml); URINE BENZODIAZEPINES Negative (200ng/ml); URINE CANNABINOIDS (THC) Positive (50ng/ml); URINE COCAINE Positive (300ng/ml); URINE METHADONE Negative (300ng/ml); URINE OPIATES Negative (300ng/ml); URINE PHENCYCLIDINE Negative (25ng/ml)
[2022-09-28 11:17] LABS: BACTERIA 2+; WBC 0-2 wbc/hpf (0-5)
[2022-09-28] MEDS ORDERED: CIPRO500 MG PO ×2 (11:51)
[2022-09-28] MEDS ORDERED: PHENERGAN25 M3 PO ×2 (12:30)
[2022-09-28] MEDS ORDERED: MELOXICAM15 MG PO ×2 (12:30)
[2022-09-28] MEDS ORDERED: BUPRENORPHINE-1 EAC1 SL (18:19)
== END 2022-09-28 12:39 | disposition home or self-care (01) ==
LOC: ED 09:35
PROVIDERS: Internal Medicine
DX: N39.0 Urinary tract infection, site not specified (principal); F41.9 Anxiety disorder, unspecified; F12.10 Cannabis abuse, uncomplicated; Z88.5 Allergy status to narcotic agent; Z90.49 Acquired absence of other specified parts of digestive tract; Z98.890 Other specified postprocedural states; F17.200 Nicotine dependence, unspecified, uncomplicated

== ENCOUNTER 2022-09-28 15:43 | Inpatient (IN) | payer OTHER ==
[~2022-09-28] VITALS: Ht 182.9 cm; Wt 65.4 kg
[~2022-09-28 15:43] MED LIST changes: +MELOXICAM15 MG PO
[2022-09-28 16:00] VITALS: BP 118/64
[2022-09-28 17:37] VITALS: BP 147/79
[2022-09-28 17:53] LABS: BASO # 0.1 10*3/uL (0.0-0.1); BASO % 0.7 % (0.0-1.0); EOS % 0.1 % (1.0-4.0); HEMATOCRIT 40.4 % (37.0-47.0); LYMPH # 1.5 10*3/uL (1.3-4.4); LYMPH % 20.9 % (27.0-41.0); MEAN CELL VOLUME 96.2 fl (81.0-99.0); MEAN CORPUSCULAR HGB 32.6 pg (27.0-31.0); MEAN CORPUSCULAR HGB CONC 33.9 g/dl (33.0-37.0); MEAN PLATELET VOLUME 12.5 fl (9.6-12.3); MONO # 0.3 10*3/uL (0.1-1.0); MONO % 3.7 % (3.0-9.0); NEUT # 5.5 10*3/uL (2.3-7.9); NEUT % 74.5 % (47.0-73.0); PLATELET COUNT AUTOMATED 157 10*3/uL (130-400); RED CELL DISTRI WIDTH 13.4 % (0-14.5); WHITE BLOOD COUNT 7.4 10*3/uL (4.8-10.8)
[2022-09-28 18:12] LABS: ALKALINE PHOSPHATASE 73 U/L (46-116); BUN 7 mg/dl (9-23); CHLORIDE 110 mmol/L (98-107); LIPASE 36 U/L (12-53); POTASSIUM 3.1 mmol/L (3.4-5.1); SGPT/ALT 10 U/L (10-49); TOTAL PROTEIN 7.1 gm/dL (6.0-8.0)
[2022-09-28] MEDS ORDERED: BUPRENORPHINE-1 EAC1 SL (18:19)
[2022-09-28 20:00] VITALS: BP 158/89
[2022-09-29] VITALS: BP 140/92
[2022-09-29 06:56] LABS: BASO # 0.1 10*3/uL (0.0-0.1); BASO % 0.6 % (0.0-1.0); EOS % 0.1 % (1.0-4.0); HEMATOCRIT 39.3 % (37.0-47.0); LYMPH # 2.2 10*3/uL (1.3-4.4); LYMPH % 25.1 % (27.0-41.0); MEAN CORPUSCULAR HGB CONC 35.1 g/dl (33.0-37.0); MEAN PLATELET VOLUME 12.9 fl (9.6-12.3); MONO # 0.6 10*3/uL (0.1-1.0); MONO % 6.6 % (3.0-9.0); NEUT # 5.9 10*3/uL (2.3-7.9); NEUT % 67.4 % (47.0-73.0); PLATELET COUNT AUTOMATED 150 10*3/uL (130-400); RED BLOOD COUNT 4.18 10*6/uL (4.10-5.10); RED CELL DISTRI WIDTH 13.3 % (0-14.5); WHITE BLOOD COUNT 8.8 10*3/uL (4.8-10.8)
[2022-09-29 07:17] LABS: ALKALINE PHOSPHATASE 72 U/L (46-116); BUN 8 mg/dl (9-23); CHLORIDE 105 mmol/L (98-107); CHOLESTEROL 136 mg/dL (<200); LDL CHOLESTEROL 74 mg/dL (9-159); POTASSIUM 2.9 mmol/L (3.4-5.1); SGPT/ALT 7 U/L (10-49); TOTAL PROTEIN 6.7 gm/dL (6.0-8.0); TRIGLYCERIDES 93 mg/dl (<150)
[2022-09-29 08:00] VITALS: BP 128/77
[2022-09-29 09:57] VITALS: BP 137/78
[2022-09-29 12:00] VITALS: BP 146/87
[2022-09-29 16:00] VITALS: BP 136/80
== END 2022-09-29 22:38 | disposition left against medical advice (07) | DRG 770 ==
LOC: ED 15:43 → 4E 16:50 → EDHOLD 16:50 → 4E 17:16
PROVIDERS: ADMIT Internal Medicine; ATTEND Internal Medicine
DX: F11.13 Opioid abuse with withdrawal (principal); F14.10 Cocaine abuse, uncomplicated; E87.6 Hypokalemia; R00.1 Bradycardia, unspecified; F12.10 Cannabis abuse, uncomplicated; F17.210 Nicotine dependence, cigarettes, uncomplicated; F19.90 Other psychoactive substance use, unspecified, uncomplicated; F41.9 Anxiety disorder, unspecified; B19.20 Unspecified viral hepatitis C without hepatic coma; K29.70 Gastritis, unspecified, without bleeding; Z53.29 Procedure and treatment not carried out because of patient's decision for other reasons; N20.0 Calculus of kidney; K76.0 Fatty (change of) liver, not elsewhere classified; Z88.8 Allergy status to other drugs, medicaments and biological substances; Z86.32 Personal history of gestational diabetes; Z85.41 Personal history of malignant neoplasm of cervix uteri; Z90.49 Acquired absence of other specified parts of digestive tract; Z85.3 Personal history of malignant neoplasm of breast

== ENCOUNTER 2022-10-01 13:17 | Emergency (ER) | payer OTHER ==
[~2022-10-01] VITALS: Ht 182.8 cm; Wt 63.5 kg
[~2022-10-01 13:17] MED LIST changes: +BUPRENORPHINE-1 EAC1 SL
[2022-10-01] MEDS ORDERED: REGLAN5 MG PO (16:48)
== END 2022-10-01 16:59 | disposition home or self-care (01) ==
LOC: ED 13:17
DX: F11.23 Opioid dependence with withdrawal (principal); R10.9 Unspecified abdominal pain; R11.10 Vomiting, unspecified; F17.210 Nicotine dependence, cigarettes, uncomplicated; Z88.8 Allergy status to other drugs, medicaments and biological substances; Z79.899 Other long term (current) drug therapy; Z90.49 Acquired absence of other specified parts of digestive tract

== ENCOUNTER 2023-06-01 17:58 | Emergency (ER) | payer OTHER ==
[~2023-06-01] VITALS: Ht 182.8 cm; Wt 63.5 kg
[~2023-06-01 17:58] MED LIST changes: +REGLAN5 MG PO
[2023-06-01 18:29] LABS: BASO # 0.1 10*3/uL (0.0-0.1); BASO % 0.4 % (0.0-1.0); HEMATOCRIT 43.2 % (37.0-47.0); LYMPH # 1.3 10*3/uL (1.3-4.4); LYMPH % 9.1 % (27.0-41.0); MEAN CELL VOLUME 95.2 fl (81.0-99.0); MEAN CORPUSCULAR HGB 31.5 pg (27.0-31.0); MEAN CORPUSCULAR HGB CONC 33.1 g/dl (33.0-37.0); MONO # 0.3 10*3/uL (0.1-1.0); MONO % 2.1 % (3.0-9.0); NEUT # 12.3 10*3/uL (2.3-7.9); NEUT % 88.1 % (47.0-73.0); PLATELET COUNT AUTOMATED 206 10*3/uL (130-400); RED BLOOD COUNT 4.54 10*6/uL (4.10-5.10); RED CELL DISTRI WIDTH 13.3 % (0-14.5); WHITE BLOOD COUNT 13.9 10*3/uL (4.8-10.8)
[2023-06-01] MEDS ORDERED: Metoclopramide Hydrochloride 10 MG/2 ML AMP IV ONE (18:35)
[2023-06-01] MEDS ORDERED: diphenhydrAMINE hydrochloride 50 MG/ML VIAL IV ONE (18:35)
[2023-06-01] MEDS ORDERED: SODIUM CHLORIDE 0.9% 1,000 ML IV ONE (18:35)
[2023-06-01 18:46] LABS: ALKALINE PHOSPHATASE 74 U/L (46-116); BUN 13 mg/dl (9-23); CHLORIDE 103 mmol/L (98-107); LIPASE 24 U/L (12-53); POTASSIUM 3.4 mmol/L (3.4-5.1); SGPT/ALT 9 U/L (5-49); TOTAL PROTEIN 7.7 gm/dL (6.0-8.0)
[2023-06-01 18:47] LABS: ETHYL ALCOHOL < 3.0 mg/dl (<3)
[2023-06-01] MEDS ORDERED: DIAZEPAM 10 MG/2 ML SYR IV ONE ×2 (19:00→23:25)
[2023-06-01 20:55] LABS: BILIRUBIN Negative (Negative); BLOOD Negative (Negative); CLARITY Clear (Clear); COLOR Dark Yellow (Yellow); GLUCOSE Negative (Negative); KETONE 1+ (Negative); LEUKO ESTERASE Negative (Negative); NITRITE Negative (Negative); SPECIFIC GRAVITY >= 1.030 (1.001-1.030)
[2023-06-01 21:03] LABS: URINE AMPHETAMINES Negative (1000ng/ml); URINE BARBITURATES Negative (200ng/ml); URINE BENZODIAZEPINES Negative (200ng/ml); URINE CANNABINOIDS (THC) Positive (50ng/ml); URINE COCAINE Negative (300ng/ml); URINE METHADONE Negative (300ng/ml); URINE OPIATES Negative (300ng/ml); URINE PHENCYCLIDINE Negative (25ng/ml)
[2023-06-01 21:21] LABS: BACTERIA 1+; MUCOUS 2+
[2023-06-01] MEDS ORDERED: Promethazine Hydrochloride 25 MG/ML VIAL IM ONE (22:00)
[2023-06-01] MEDS ORDERED: PHENERGAN25 M3 PO (23:30)
== END 2023-06-01 23:34 | disposition home or self-care (01) ==
LOC: ED 17:58
PROVIDERS: Internal Medicine
DX: R11.2 Nausea with vomiting, unspecified (principal); D72.829 Elevated white blood cell count, unspecified; F41.9 Anxiety disorder, unspecified; F12.10 Cannabis abuse, uncomplicated; Z88.8 Allergy status to other drugs, medicaments and biological substances; Z98.890 Other specified postprocedural states; Z90.49 Acquired absence of other specified parts of digestive tract; F17.200 Nicotine dependence, unspecified, uncomplicated

== ENCOUNTER 2023-09-11 12:42 | Inpatient (IN) | payer OTHER ==
[~2023-09-11] VITALS: Ht 182.8 cm; Wt 63.5 kg
[2023-09-11] MEDS ORDERED: Metoclopramide Hydrochloride 10 MG/2 ML AMP IV ONE (13:35)
[2023-09-11] MEDS ORDERED: SODIUM CHLORIDE 0.9% 1,000 ML IV ONE (13:35)
[2023-09-11] MEDS ORDERED: diphenhydrAMINE hydrochloride 50 MG/ML VIAL IV ONE (13:35)
[2023-09-11 13:41] LABS: ACT PARTIAL THROMBO TIME 20.8 SECONDS (20.0-32.1)
[2023-09-11 13:48] LABS: ALKALINE PHOSPHATASE 63 U/L (46-116); BUN 5 mg/dl (9-23); CHLORIDE 107 mmol/L (98-107); LIPASE 32 U/L (12-53); POTASSIUM 4.1 mmol/L (3.4-5.1); SGPT/ALT 10 U/L (5-49); TOTAL PROTEIN 7.1 gm/dL (6.0-8.0)
[2023-09-11 13:59] LABS: ETHYL ALCOHOL < 3.0 mg/dl (<3)
[2023-09-11 14:13] LABS: BILIRUBIN Negative (Negative); BLOOD Negative (Negative); CLARITY Clear (Clear); COLOR Yellow (Yellow); GLUCOSE Negative (Negative); KETONE Negative (Negative); LEUKO ESTERASE 1+ (Negative); NITRITE Negative (Negative); SPECIFIC GRAVITY 1.015 (1.001-1.030); UROBILINOGEN 0.2 E.U./dl (0.0-1.0)
[2023-09-11 14:17] LABS: URINE AMPHETAMINES Negative (1000ng/ml); URINE BARBITURATES Negative (200ng/ml); URINE BENZODIAZEPINES Negative (200ng/ml); URINE CANNABINOIDS (THC) Positive (50ng/ml); URINE COCAINE Negative (300ng/ml); URINE METHADONE Negative (300ng/ml); URINE OPIATES Negative (300ng/ml); URINE PHENCYCLIDINE Negative (25ng/ml)
[2023-09-11 14:53] LABS: BACTERIA 2+; EPITHELIAL CELLS 51-100
[2023-09-11 15:55] LABS: BASO # 0.1 10*3/uL (0.0-0.1); BASO % 0.5 % (0.0-1.0); EOS # 0.1 10*3/uL (0.0-0.4); EOS % 0.8 % (1.0-4.0); HEMATOCRIT 45.7 % (37.0-47.0); LYMPH # 1.8 10*3/uL (1.3-4.4); LYMPH % 14.9 % (27.0-41.0); MEAN CELL VOLUME 97.9 fl (81.0-99.0); MEAN CORPUSCULAR HGB 32.8 pg (27.0-31.0); MEAN CORPUSCULAR HGB CONC 33.5 g/dl (33.0-37.0); MEAN PLATELET VOLUME 11.9 fl (9.6-12.3); MONO # 0.5 10*3/uL (0.1-1.0); MONO % 4.1 % (3.0-9.0); NEUT # 9.4 10*3/uL (2.3-7.9); NEUT % 79.4 % (47.0-73.0); PLATELET COUNT AUTOMATED 132 10*3/uL (130-400); RED BLOOD COUNT 4.67 10*6/uL (4.10-5.10); RED CELL DISTRI WIDTH 13.8 % (0-14.5); WHITE BLOOD COUNT 11.8 10*3/uL (4.8-10.8)
[2023-09-11 15:56] VITALS: BP 136/66
[2023-09-11] MEDS ORDERED: Promethazine Hydrochloride 25 MG/ML VIAL IV ONE (16:45)
[2023-09-11] MEDS ORDERED: Prochlorperazine Edisylate 10 MG/2 ML VIAL IV ONE (17:00)
[2023-09-11] MEDS ORDERED: DIAZEPAM 10 MG/2 ML SYR IV ONE (17:05)
[2023-09-11 19:23] VITALS: BP 128/76
[2023-09-11 19:53] VITALS: BP 124/57
[2023-09-11] MEDS ORDERED: GABAPENTIN 800 MG TAB PO SCH (22:47)
[2023-09-11] MEDS ORDERED: BUPRENORPHINE HCL/NALOXONE 8 MG-2 MG SL TABLET SL SCH (22:47)
[2023-09-11] MEDS ORDERED: LORazepam 1 MG TAB PO SCH (22:48)
[2023-09-12] VITALS: BP 118/64
[2023-09-12 03:47] VITALS: BP 116/78; BP 126/78
[2023-09-12 04:08] LABS: BASO % 0.2 % (0.0-1.0); HEMATOCRIT 44.2 % (37.0-47.0); LYMPH # 1.4 10*3/uL (1.3-4.4); MEAN CORPUSCULAR HGB 32.3 pg (27.0-31.0); MEAN CORPUSCULAR HGB CONC 34.2 g/dl (33.0-37.0); MEAN PLATELET VOLUME 12.9 fl (9.6-12.3); MONO # 0.4 10*3/uL (0.1-1.0); MONO % 2.8 % (3.0-9.0); NEUT # 10.9 10*3/uL (2.3-7.9); NEUT % 85.5 % (47.0-73.0); PLATELET COUNT AUTOMATED 138 10*3/uL (130-400); RED BLOOD COUNT 4.68 10*6/uL (4.10-5.10); RED CELL DISTRI WIDTH 13.7 % (0-14.5); WHITE BLOOD COUNT 12.8 10*3/uL (4.8-10.8)
[2023-09-12 04:10] LABS: MEAN CELL VOLUME 94.4 fl (81.0-99.0)
[2023-09-12 04:27] LABS: BUN 8 mg/dl (9-23); CHLORIDE 104 mmol/L (98-107); POTASSIUM 3.2 mmol/L (3.4-5.1)
[2023-09-12 07:54] VITALS: BP 128/76
[2023-09-12] MEDS ORDERED: ARIPIPRAZOLE15 MG PO (12:26)
[2023-09-12] MEDS ORDERED: MIRTAZAPINE15 M2 PO (12:27)
[2023-09-12] MEDS ORDERED: BUSPIRONE HCL10 MG PO (12:27)
[2023-09-12] MEDS ORDERED: TRAZODONE150 MG PO (12:28)
[2023-09-12] MEDS ORDERED: SODIUM CHLORIDE 0.9% 1,000 ML IV SCH (13:35)
== END 2023-09-12 18:00 | disposition home or self-care (01) | DRG 422 ==
LOC: ED 12:42 → EDHOLD 20:25
PROVIDERS: Internal Medicine; ADMIT Internal Medicine; ATTEND Internal Medicine
DX: E86.0 Dehydration (principal); F10.930 Alcohol use, unspecified with withdrawal, uncomplicated; F41.1 Generalized anxiety disorder; E87.6 Hypokalemia; Z88.8 Allergy status to other drugs, medicaments and biological substances; Z90.49 Acquired absence of other specified parts of digestive tract; Z83.6 Family history of other diseases of the respiratory system; Z80.1 Family history of malignant neoplasm of trachea, bronchus and lung; Z80.8 Family history of malignant neoplasm of other organs or systems; Z85.41 Personal history of malignant neoplasm of cervix uteri

== ENCOUNTER 2023-09-22 09:59 | Emergency (ER) | payer OTHER ==
[~2023-09-22 09:59] MED LIST changes: +ARIPIPRAZOLE15 MG PO; +BUSPIRONE HCL10 MG PO; +MIRTAZAPINE15 M2 PO; +TRAZODONE150 MG PO
[2023-09-22] MEDS ORDERED: SODIUM CHLORIDE 0.9% 1,000 ML IV ONE (10:10)
[2023-09-22 10:32] LABS: BASO # 0.1 10*3/uL (0.0-0.1); BASO % 0.9 % (0.0-1.0); EOS # 0.1 10*3/uL (0.0-0.4); EOS % 0.8 % (1.0-4.0); HEMATOCRIT 47.3 % (37.0-47.0); LYMPH # 1.8 10*3/uL (1.3-4.4); LYMPH % 23.5 % (27.0-41.0); MEAN CELL VOLUME 97.7 fl (81.0-99.0); MEAN CORPUSCULAR HGB CONC 32.8 g/dl (33.0-37.0); MEAN PLATELET VOLUME 12.1 fl (9.6-12.3); MONO # 0.5 10*3/uL (0.1-1.0); MONO % 6.1 % (3.0-9.0); NEUT # 5.2 10*3/uL (2.3-7.9); NEUT % 68.4 % (47.0-73.0); PLATELET COUNT AUTOMATED 151 10*3/uL (130-400); RED BLOOD COUNT 4.84 10*6/uL (4.10-5.10); RED CELL DISTRI WIDTH 13.6 % (0-14.5); WHITE BLOOD COUNT 7.6 10*3/uL (4.8-10.8)
[2023-09-22] MEDS ORDERED: cloNIDine Hydrochloride 0.1 MG TAB PO ONE (10:45)
[2023-09-22] MEDS ORDERED: Dicyclomine Hydrochloride 10 MG CAP PO ONE (10:45)
[2023-09-22 10:49] LABS: ALKALINE PHOSPHATASE 74 U/L (46-116); BUN 13 mg/dl (9-23); CHLORIDE 110 mmol/L (98-107); ETHYL ALCOHOL 16.4 mg/dl (<3); LIPASE 39 U/L (12-53); POTASSIUM 3.2 mmol/L (3.4-5.1); SGPT/ALT 9 U/L (5-49); TOTAL PROTEIN 7.8 gm/dL (6.0-8.0)
[2023-09-22 10:54] LABS: BILIRUBIN Negative (Negative); BLOOD Negative (Negative); CLARITY Clear (Clear); COLOR Dark Yellow (Yellow); GLUCOSE Negative (Negative); KETONE Trace (Negative); LEUKO ESTERASE 1+ (Negative); NITRITE Negative (Negative); PH 5.5 (4.5-8.0); SPECIFIC GRAVITY >= 1.030 (1.001-1.030)
[2023-09-22 10:57] LABS: URINE AMPHETAMINES Positive (1000ng/ml); URINE BARBITURATES Negative (200ng/ml); URINE BENZODIAZEPINES Negative (200ng/ml); URINE CANNABINOIDS (THC) Positive (50ng/ml); URINE COCAINE Negative (300ng/ml); URINE METHADONE Negative (300ng/ml); URINE OPIATES Negative (300ng/ml); URINE PHENCYCLIDINE Negative (25ng/ml)
[2023-09-22 11:12] LABS: BACTERIA 1+; CALCIUM OXALATE CRYSTALS 1+; MUCOUS 2+
== END 2023-09-22 14:53 | disposition left against medical advice (07) ==
LOC: ED 09:59
PROVIDERS: Internal Medicine
DX: F11.23 Opioid dependence with withdrawal (principal); R11.2 Nausea with vomiting, unspecified; R51.9 Headache, unspecified; F17.200 Nicotine dependence, unspecified, uncomplicated; Z53.29 Procedure and treatment not carried out because of patient's decision for other reasons; Z88.8 Allergy status to other drugs, medicaments and biological substances; Z79.899 Other long term (current) drug therapy; Z98.890 Other specified postprocedural states; Z90.49 Acquired absence of other specified parts of digestive tract

== ENCOUNTER 2023-10-26 11:29 | Emergency (ER) | payer OTHER ==
[~2023-10-26] VITALS: Ht 185.4 cm; Wt 72.6 kg
[2023-10-26] MEDS ORDERED: Promethazine Hydrochloride 25 MG/ML VIAL IM ONE (11:50)
[2023-10-26] MEDS ORDERED: SODIUM CHLORIDE 0.9% 1,000 ML IV ONE (11:50)
[2023-10-26 12:23] LABS: BASO # 0.1 10*3/uL (0.0-0.1); BASO % 0.6 % (0.0-1.0); EOS # 0.1 10*3/uL (0.0-0.4); EOS % 0.6 % (1.0-4.0); HEMATOCRIT 44.3 % (37.0-47.0); LYMPH # 1.7 10*3/uL (1.3-4.4); LYMPH % 17.5 % (27.0-41.0); MEAN CELL VOLUME 92.9 fl (81.0-99.0); MEAN CORPUSCULAR HGB 32.9 pg (27.0-31.0); MEAN CORPUSCULAR HGB CONC 35.4 g/dl (33.0-37.0); MEAN PLATELET VOLUME 12.4 fl (9.6-12.3); MONO # 0.5 10*3/uL (0.1-1.0); MONO % 4.8 % (3.0-9.0); NEUT # 7.5 10*3/uL (2.3-7.9); NEUT % 76.2 % (47.0-73.0); PLATELET COUNT AUTOMATED 123 10*3/uL (130-400); RED BLOOD COUNT 4.77 10*6/uL (4.10-5.10); RED CELL DISTRI WIDTH 13.6 % (0-14.5); WHITE BLOOD COUNT 9.8 10*3/uL (4.8-10.8)
[2023-10-26 12:44] LABS: ALKALINE PHOSPHATASE 65 U/L (46-116); BUN 9 mg/dl (9-23); CHLORIDE 107 mmol/L (98-107); LIPASE 24 U/L (12-53); POTASSIUM 3.4 mmol/L (3.4-5.1); SGPT/ALT 10 U/L (5-49); TOTAL PROTEIN 7.2 gm/dL (6.0-8.0)
[2023-10-26] MEDS ORDERED: Ketorolac Tromethamine 30 MG/ML VIAL IV ONE (14:00)
[2023-10-26] MEDS ORDERED: Prochlorperazine Edisylate 10 MG/2 ML VIAL IV ONE (15:40)
[2023-10-26] MEDS ORDERED: LORazepam 2 MG/ML VIAL IV ONE (17:05)
[2023-10-26] MEDS ORDERED: Phenergan25 MG PO (17:17)
== END 2023-10-26 18:26 | disposition home or self-care (01) ==
LOC: ED 11:29
PROVIDERS: Internal Medicine
DX: R11.2 Nausea with vomiting, unspecified (principal); F12.10 Cannabis abuse, uncomplicated; R19.7 Diarrhea, unspecified; F41.9 Anxiety disorder, unspecified; F17.200 Nicotine dependence, unspecified, uncomplicated; Z88.8 Allergy status to other drugs, medicaments and biological substances; Z90.49 Acquired absence of other specified parts of digestive tract; Z98.890 Other specified postprocedural states

== ENCOUNTER → 2024-02-10 | Outpatient (CLI) | payer OTHER ==
[~2024-02-10] MED LIST changes: +Phenergan25 MG PO
[2024-02-10 16:16] LABS: HEMATOCRIT 38.9 % (37.0-47.0); MEAN CELL VOLUME 96.3 fl (81.0-99.0); MEAN CORPUSCULAR HGB 31.9 pg (27.0-31.0); MEAN CORPUSCULAR HGB CONC 33.2 g/dl (33.0-37.0); MEAN PLATELET VOLUME 12.3 fl (9.6-12.3); RED BLOOD COUNT 4.04 10*6/uL (4.10-5.10); RED CELL DISTRI WIDTH 13.3 % (0-14.5); WHITE BLOOD COUNT 7.3 10*3/uL (4.8-10.8)
[2024-02-10 16:37] LABS: ALKALINE PHOSPHATASE 68 U/L (46-116); BUN 12 mg/dl (9-23); CHLORIDE 104 mmol/L (98-107); CHOLESTEROL 181 mg/dL (<200); GAMMA GLUTAMYL TRANSPEPTIDASE 13 U/L (0-73); LDL CHOLESTEROL 111 mg/dL (9-159); POTASSIUM 3.8 mmol/L (3.4-5.1); SGPT/ALT 9 U/L (5-49); TOTAL PROTEIN 7.1 gm/dL (6.0-8.0); TRIGLYCERIDES 97 mg/dl (<150)
[2024-02-10 17:31] LABS: VITAMIN D, 25-HYDROXY 22.2 ng/mL (30-100)
[2024-02-11 08:08] LABS: HBsAG SCREEN Negative (Negative); HEP B CORE Ab, IgM Negative (Negative)
[2024-02-12 22:05] LABS: HCV Ab Reactive (Non Reactive)
== END | disposition home or self-care (01) ==
LOC: LAB 15:54
PROVIDERS: ATTEND Family Medicine
DX: E55.9 Vitamin D deficiency, unspecified (principal); R53.83 Other fatigue; K74.60 Unspecified cirrhosis of liver; F19.10 Other psychoactive substance abuse, uncomplicated; Z79.899 Other long term (current) drug therapy

== ENCOUNTER 2024-02-22 10:02 | Emergency (ER) | payer OTHER ==
[~2024-02-22] VITALS: Wt 79.5 kg
[2024-02-22] MEDS ORDERED: SODIUM CHLORIDE 0.9% 500 ML IV ONE (10:15)
[2024-02-22] MEDS ORDERED: Ondansetron Hydrochloride 4 MG/2 ML VIAL IV ONE (10:15)
[2024-02-22] MEDS ORDERED: Pantoprazole Sodium 40 MG VIAL IV ONE (10:15)
[2024-02-22 10:31] LABS: BASO # 0.1 10*3/uL (0.0-0.1); BASO % 0.6 % (0.0-1.0); EOS # 0.2 10*3/uL (0.0-0.4); EOS % 1.8 % (1.0-4.0); HEMATOCRIT 41.5 % (37.0-47.0); MEAN CELL VOLUME 97.6 fl (81.0-99.0); MEAN CORPUSCULAR HGB CONC 32.8 g/dl (33.0-37.0); MEAN PLATELET VOLUME 12.3 fl (9.6-12.3); MONO # 0.4 10*3/uL (0.1-1.0); MONO % 4.3 % (3.0-9.0); NEUT # 7.6 10*3/uL (2.3-7.9); NEUT % 76.5 % (47.0-73.0); PLATELET COUNT AUTOMATED 127 10*3/uL (130-400); RED BLOOD COUNT 4.25 10*6/uL (4.10-5.10); RED CELL DISTRI WIDTH 13.9 % (0-14.5); WHITE BLOOD COUNT 9.9 10*3/uL (4.8-10.8)
[2024-02-22] MEDS ORDERED: Ampicillin Sodium/Sulbactam 3 GM in SODIUM CHLORIDE 0.9% 100 ML IV ONE (11:05)
[2024-02-22 11:10] LABS: ALKALINE PHOSPHATASE 64 U/L (46-116); BUN 12 mg/dl (9-23); CHLORIDE 108 mmol/L (98-107); LIPASE 30 U/L (12-53); POTASSIUM 3.6 mmol/L (3.4-5.1); SGPT/ALT 11 U/L (5-49); TOTAL PROTEIN 6.9 gm/dL (6.0-8.0)
[2024-02-22] MEDS ORDERED: Phenergan25 MG PO (11:50)
[2024-02-22] MEDS ORDERED: AMOX-CLAV 875-1 EACH PO (11:50)
[2024-02-22] MEDS ORDERED: Ketorolac Tromethamine 30 MG/ML VIAL IV ONE (12:05)
== END 2024-02-22 12:17 | disposition home or self-care (01) ==
LOC: ED 10:02
PROVIDERS: Emergency Medicine
DX: K04.7 Periapical abscess without sinus (principal); R11.15 Cyclical vomiting syndrome unrelated to migraine; G62.9 Polyneuropathy, unspecified; Z88.8 Allergy status to other drugs, medicaments and biological substances; Z79.899 Other long term (current) drug therapy; Z90.49 Acquired absence of other specified parts of digestive tract; Z87.891 Personal history of nicotine dependence

== ENCOUNTER 2024-02-28 06:56 | Emergency (ER) | payer OTHER ==
[~2024-02-28 06:56] MED LIST changes: +AMOX-CLAV 875-1 EACH PO
[2024-02-28] MEDS ORDERED: LORazepam 2 MG/ML VIAL IM ONE (07:05)
[2024-02-28 07:20] LABS: BASO # 0.1 10*3/uL (0.0-0.1); BASO % 0.7 % (0.0-1.0); EOS # 0.3 10*3/uL (0.0-0.4); EOS % 2.6 % (1.0-4.0); MEAN CELL VOLUME 93.8 fl (81.0-99.0); MEAN CORPUSCULAR HGB 32.3 pg (27.0-31.0); MEAN CORPUSCULAR HGB CONC 34.4 g/dl (33.0-37.0); MEAN PLATELET VOLUME 11.2 fl (9.6-12.3); MONO # 0.8 10*3/uL (0.1-1.0); MONO % 7.8 % (3.0-9.0); NEUT # 7.5 10*3/uL (2.3-7.9); NEUT % 71.6 % (47.0-73.0); PLATELET COUNT AUTOMATED 209 10*3/uL (130-400); RED BLOOD COUNT 4.37 10*6/uL (4.10-5.10); RED CELL DISTRI WIDTH 13.4 % (0-14.5); WHITE BLOOD COUNT 10.5 10*3/uL (4.8-10.8)
[2024-02-28] MEDS ORDERED: SODIUM CHLORIDE 0.9% 1,000 ML IV ONE (07:25)
[2024-02-28 07:51] LABS: BUN 14 mg/dl (9-23); CHLORIDE 103 mmol/L (98-107); CPK 244 U/L (34-171); POTASSIUM 2.7 mmol/L (3.4-5.1)
[2024-02-28 07:52] LABS: B-hCG (QUALITATIVE) NEGATIVE (NEGATIVE); ETHYL ALCOHOL < 3.0 mg/dl (<3)
[2024-02-28] MEDS ORDERED: POTASSIUM CHLORIDE 20 MEQ TAB PO ONE (08:05)
[2024-02-28 08:41] LABS: BILIRUBIN Negative (Negative); BLOOD Negative (Negative); CLARITY Cloudy (Clear); COLOR Dark Yellow (Yellow); GLUCOSE Negative (Negative); KETONE 2+ (Negative); LEUKO ESTERASE Trace (Negative); NITRITE Negative (Negative); PH 5.5 (4.5-8.0); SPECIFIC GRAVITY 1.025 (1.001-1.030)
[2024-02-28 08:50] LABS: URINE AMPHETAMINES Positive (1000ng/ml); URINE BARBITURATES Negative (200ng/ml); URINE BENZODIAZEPINES Negative (200ng/ml); URINE CANNABINOIDS (THC) Positive (50ng/ml); URINE COCAINE Positive (300ng/ml); URINE METHADONE Negative (300ng/ml); URINE OPIATES Negative (300ng/ml); URINE PHENCYCLIDINE Negative (25ng/ml)
[2024-02-28 08:51] LABS: BACTERIA 3+; COARSE GRANULAR CAST 16-20; FINE GRANULAR CAST 16-20; HYALINE CAST 16-20; MUCOUS 3+
[2024-02-28] MEDS ORDERED: POTASSIUM CHLO20 ME3 PO (09:53)
== END 2024-02-28 09:17 | disposition left against medical advice (07) ==
LOC: ED 06:56
PROVIDERS: Emergency Medicine
DX: R41.82 Altered mental status, unspecified (principal); J45.909 Unspecified asthma, uncomplicated; F41.9 Anxiety disorder, unspecified; F15.10 Other stimulant abuse, uncomplicated; F14.10 Cocaine abuse, uncomplicated; F11.20 Opioid dependence, uncomplicated; F17.200 Nicotine dependence, unspecified, uncomplicated; Z98.890 Other specified postprocedural states; Z90.49 Acquired absence of other specified parts of digestive tract

== ENCOUNTER 2024-02-28 09:35 | Emergency (ER) | payer OTHER ==
[~2024-02-28] VITALS: Ht 182.8 cm; Wt 68.5 kg
[2024-02-28] MEDS ORDERED: POTASSIUM CHLORIDE 20 MEQ TAB PO ONE (09:50)
[2024-02-28] MEDS ORDERED: LORazepam 2 MG/ML VIAL IM ONE (09:50)
[2024-02-28] MEDS ORDERED: POTASSIUM CHLO20 ME3 PO (09:53)
== END 2024-02-28 11:12 | disposition home or self-care (01) ==
LOC: ED 09:35
DX: E87.6 Hypokalemia (principal); F41.9 Anxiety disorder, unspecified; F17.200 Nicotine dependence, unspecified, uncomplicated; F12.10 Cannabis abuse, uncomplicated; F15.10 Other stimulant abuse, uncomplicated; F14.10 Cocaine abuse, uncomplicated; Z90.49 Acquired absence of other specified parts of digestive tract; Z98.890 Other specified postprocedural states

== ENCOUNTER 2024-03-25 22:01 | Emergency (ER) | payer OTHER ==
[~2024-03-25] VITALS: Ht 182.9 cm; Wt 70.3 kg
[~2024-03-25 22:01] MED LIST changes: +POTASSIUM CHLO20 ME3 PO
[2024-03-25] MEDS ORDERED: Ondansetron Hydrochloride 4 MG/2 ML VIAL IV ONE (22:25)
[2024-03-25] MEDS ORDERED: SODIUM CHLORIDE 0.9% 1,000 ML IV ONE (22:25)
[2024-03-25 22:58] LABS: BASO % 0.4 % (0.0-1.0); EOS # 0.1 10*3/uL (0.0-0.4); EOS % 1.1 % (1.0-4.0); HEMATOCRIT 43.1 % (37.0-47.0); MEAN CELL VOLUME 96.4 fl (81.0-99.0); MEAN CORPUSCULAR HGB 32.2 pg (27.0-31.0); MEAN CORPUSCULAR HGB CONC 33.4 g/dl (33.0-37.0); MEAN PLATELET VOLUME 12.4 fl (9.6-12.3); MONO # 0.4 10*3/uL (0.1-1.0); MONO % 3.5 % (3.0-9.0); NEUT # 8.3 10*3/uL (2.3-7.9); NEUT % 79.6 % (47.0-73.0); PLATELET COUNT AUTOMATED 122 10*3/uL (130-400); RED BLOOD COUNT 4.47 10*6/uL (4.10-5.10); RED CELL DISTRI WIDTH 13.8 % (0-14.5); WHITE BLOOD COUNT 10.4 10*3/uL (4.8-10.8)
[2024-03-25 23:19] LABS: ALKALINE PHOSPHATASE 79 U/L (46-116); BUN 9 mg/dl (9-23); CHLORIDE 104 mmol/L (98-107); POTASSIUM 3.1 mmol/L (3.4-5.1); TOTAL PROTEIN 7.5 gm/dL (6.0-8.0)
[2024-03-25 23:20] LABS: SGPT/ALT < 7 U/L (5-49)
[2024-03-26] MEDS ORDERED: Metoclopramide Hydrochloride 10 MG/2 ML VIAL IV ONE (00:20)
[2024-03-26] MEDS ORDERED: diphenhydrAMINE hydrochloride 50 MG/ML VIAL IV ONE (00:20)
== END 2024-03-26 01:15 | disposition home or self-care (01) ==
LOC: ED 22:01
PROVIDERS: Nurse Practitioner Family
DX: R11.2 Nausea with vomiting, unspecified (principal); F41.9 Anxiety disorder, unspecified; F12.10 Cannabis abuse, uncomplicated; F17.200 Nicotine dependence, unspecified, uncomplicated; Z90.49 Acquired absence of other specified parts of digestive tract; Z98.890 Other specified postprocedural states

== ENCOUNTER → 2024-07-12 | Outpatient (CLI) | payer OTHER ==
[2024-07-12 12:51] LABS: HEMATOCRIT 37.9 % (37.0-47.0); MEAN CELL VOLUME 97.9 fl (81.0-99.0); MEAN CORPUSCULAR HGB 31.5 pg (27.0-31.0); MEAN CORPUSCULAR HGB CONC 32.2 g/dl (33.0-37.0); MEAN PLATELET VOLUME 12.3 fl (9.6-12.3); RED BLOOD COUNT 3.87 10*6/uL (4.10-5.10); RED CELL DISTRI WIDTH 14.4 % (0-14.5); WHITE BLOOD COUNT 7.2 10*3/uL (4.8-10.8)
[2024-07-12 13:57] LABS: ALKALINE PHOSPHATASE 65 U/L (46-116); BUN 11 mg/dl (9-23); CHLORIDE 106 mmol/L (98-107); CHOLESTEROL 144 mg/dL (<200); CPK 88 U/L (34-171); FREE T4 0.89 ng/dl (0.89-1.76); LDL CHOLESTEROL 82 mg/dL (9-159); SGPT/ALT 9 U/L (5-49); TOTAL PROTEIN 6.8 gm/dL (6.0-8.0); TRIGLYCERIDES 66 mg/dl (<150); VITAMIN D, 25-HYDROXY 27.2 ng/mL (30-100)
[2024-07-13 08:07] LABS: HBsAG SCREEN Negative (Negative); HEP B CORE Ab, IgM Negative (Negative)
[2024-07-15 00:06] LABS: HCV Ab Reactive (Non Reactive)
== END | disposition home or self-care (01) ==
LOC: LAB 12:26
PROVIDERS: ATTEND Family Medicine
DX: E78.00 Pure hypercholesterolemia, unspecified (principal); E55.9 Vitamin D deficiency, unspecified

== ENCOUNTER 2024-07-29 13:51 | Emergency (ER) | payer OTHER ==
[~2024-07-29] VITALS: Ht 182.8 cm; Wt 72.6 kg
[2024-07-29] MEDS ORDERED: MIXED AMPHETAMI30 MG PO (14:04)
== END 2024-07-29 15:20 | disposition home or self-care (01) ==
LOC: ED 13:51
DX: S63.91XA Sprain of unspecified part of right wrist and hand, initial encounter (principal); Z79.899 Other long term (current) drug therapy; Z90.49 Acquired absence of other specified parts of digestive tract; Z87.891 Personal history of nicotine dependence; W22.01XA Walked into wall, initial encounter; Y93.89 Activity, other specified; Y92.89 Other specified places as the place of occurrence of the external cause; Y99.8 Other external cause status

== ENCOUNTER 2024-10-27 18:13 | Emergency (ER) | payer OTHER ==
[~2024-10-27] VITALS: Ht 182.8 cm; Wt 62.6 kg
[~2024-10-27 18:13] MED LIST changes: +MIXED AMPHETAMI30 MG PO
[2024-10-27] MEDS ORDERED: CEPHALEXIN 500 MG CAP PO ONE (19:00)
[2024-10-27] MEDS ORDERED: Lidocaine Hydrochloride 2% 10 ML AMP SC ONE (19:00)
[2024-10-27] MEDS ORDERED: Bacitracin Zinc 14 GM TUBE T ONE (19:00)
[2024-10-27] MEDS ORDERED: Tdap Vaccine 0.5 ML SYR (Adult Vaccine) IM ONE (19:00)
== END 2024-10-27 20:02 | disposition left against medical advice (07) ==
LOC: ED 18:13
DX: S01.81XA Laceration without foreign body of other part of head, initial encounter (principal); F41.9 Anxiety disorder, unspecified; Z90.49 Acquired absence of other specified parts of digestive tract; J45.909 Unspecified asthma, uncomplicated; F17.200 Nicotine dependence, unspecified, uncomplicated; Z87.42 Personal history of other diseases of the female genital tract; Z79.899 Other long term (current) drug therapy; Z87.442 Personal history of urinary calculi; Z53.29 Procedure and treatment not carried out because of patient's decision for other reasons; W21.89XA Striking against or struck by other sports equipment, initial encounter; Y93.53 Activity, golf; Y92.89 Other specified places as the place of occurrence of the external cause; Y99.8 Other external cause status

== ENCOUNTER 2024-10-28 08:24 | Emergency (ER) | payer OTHER ==
[~2024-10-28] VITALS: Ht 182.8 cm; Wt 62.6 kg
[2024-10-28] MEDS ORDERED: Tdap Vaccine 0.5 ML SYR (Adult Vaccine) IM ONE (08:55)
== END 2024-10-28 11:06 | disposition home or self-care (01) ==
LOC: ED 08:24
DX: S01.81XA Laceration without foreign body of other part of head, initial encounter (principal); F17.200 Nicotine dependence, unspecified, uncomplicated; Z79.899 Other long term (current) drug therapy; Z90.49 Acquired absence of other specified parts of digestive tract; W51.XXXA Accidental striking against or bumped into by another person, initial encounter; Y93.53 Activity, golf; Y92.89 Other specified places as the place of occurrence of the external cause; Y99.8 Other external cause status

== ENCOUNTER 2024-12-25 07:35 | Emergency (ER) | payer OTHER ==
[~2024-12-25] VITALS: Ht 182.8 cm; Wt 59.0 kg
[2024-12-25] MEDS ORDERED: Dicyclomine Hydrochloride 20 MG/2 ML VIAL IM ONE (07:55)
[2024-12-25] MEDS ORDERED: Ondansetron Hydrochloride 4 MG/2 ML VIAL IV ONE (07:55)
[2024-12-25] MEDS ORDERED: SODIUM CHLORIDE 0.9% 500 ML IV ONE (07:55)
[2024-12-25] MEDS ORDERED: IOHEXOL 300 MG/ML 100 ML VIAL IV ONE (08:10)
[2024-12-25 08:15] LABS: BASO # 0.1 10*3/uL (0.0-0.1); BASO % 0.7 % (0.0-1.0); EOS # 0.1 10*3/uL (0.0-0.4); EOS % 0.7 % (1.0-4.0); MEAN CELL VOLUME 97.3 fl (81.0-99.0); MEAN CORPUSCULAR HGB 32.3 pg (27.0-31.0); MEAN PLATELET VOLUME 11.9 fl (9.6-12.3); MONO # 0.5 10*3/uL (0.1-1.0); MONO % 5.0 % (3.0-9.0); NEUT # 7.6 10*3/uL (2.3-7.9); NEUT % 74.0 % (47.0-73.0); NUCLEATED RED BLOOD CELL 0.0 % (0.0-0.0); NUCLEATED RED BLOOD CELL 0.0 10*3/uL (0.0-0.0); PLATELET COUNT AUTOMATED 193 10*3/uL (130-400); RED CELL DISTRI WIDTH 12.8 % (0-14.5)
[2024-12-25 08:43] LABS: BUN 7 mg/dl (9-23); SGPT/ALT 8 U/L (5-49)
[2024-12-25 09:20] LABS: BILIRUBIN Negative (Negative); BLOOD Negative (Negative); CLARITY Clear (Clear); COLOR Yellow (Yellow); KETONE Negative (Negative); LEUKO ESTERASE Trace (Negative); NITRITE Negative (Negative); PH 6.0 (4.5-8.0); SPECIFIC GRAVITY 1.025 (1.001-1.030); UROBILINOGEN 0.2 E.U./dl (0.0-1.0)
[2024-12-25 09:48] LABS: BACTERIA 3+
[2024-12-25 09:50] LABS: YEAST TRACE
[2024-12-25] MEDS ORDERED: IOHEXOL 300 MG/ML 100 ML VIAL ONE (10:20)
[2024-12-25] MEDS ORDERED: Promethazine Hydrochloride 25 MG/ML VIAL IM ONE (13:35)
[2024-12-25] MEDS ORDERED: Phenergan25 MG PO (15:30)
== END 2024-12-25 15:39 | disposition home or self-care (01) ==
LOC: ED 07:35
PROVIDERS: Student in an Organized Health Care Education/Training Program
DX: R11.2 Nausea with vomiting, unspecified (principal); R10.84 Generalized abdominal pain; R19.09 Other intra-abdominal and pelvic swelling, mass and lump; F41.9 Anxiety disorder, unspecified; Z86.16 Personal history of COVID-19; Z90.49 Acquired absence of other specified parts of digestive tract; Z98.890 Other specified postprocedural states